=== PATIENT | female | born 1955 | race Caucasian/White ===

== ENCOUNTER 2020-05-18 12:20 | Outpatient (CLI) | payer OTHER, MEDICAID, SELFPAY ==
--- NOTE | ~2020-05-18 | XR_ITS ---
XR foot RT min 3V DATE: 05/18/2020 12:39 INDICATION: Stubbed second toe on wood object. Injury, pain TECHNIQUE: 4 views COMPARISON: 04/24/2017 right foot FINDINGS: Hallux valgus and bunion deformity. Osteoarthritis at the first metatarsophalangeal joint. Mild plantar calcaneal enthesopathy. Hammertoe deformity of the second toe. Osteoarthritis of the distal interphalangeal joint of the seco nd toe. Chronic bony ossicle at the lateral base of the second metatarsophalangeal joint No fracture or dislocation is evident. IMPRESSION: No fracture or dislocation is detected Reviewed, dictated and finalized at location A.
== END 2020-05-18 12:21 | disposition home or self-care (01) ==
LOC: ANHIMG 12:24
PROVIDERS: PCP Student in an Organized Health Care Education/Training Program; Visit Provider Student in an Organized Health Care Education/Training Program
DX: M79.671 Pain in right foot (principal)
CPT/HCPCS: 73630

== ENCOUNTER 2020-06-12 08:18 | Outpatient (CLI) | payer OTHER, MEDICAID, SELFPAY | END 2020-06-12 08:19 | disposition home or self-care (01) | LOC: ANHAUDIO 08:20 | PROVIDERS: PCP Student in an Organized Health Care Education/Training Program; Visit Provider Student in an Organized Health Care Education/Training Program | DX: H91.90 Unspecified hearing loss, unspecified ear (principal) | CPT/HCPCS: 92557; 92567 ==

== ENCOUNTER 2020-06-29 13:30 | Outpatient (RCR) | payer MEDICAID, SELFPAY | END 2020-06-29 23:59 | disposition home or self-care (01) | LOC: ANHAUDIO 13:30 | PROVIDERS: PCP Student in an Organized Health Care Education/Training Program; Visit Provider Student in an Organized Health Care Education/Training Program | DX: Z46.1 Encounter for fitting and adjustment of hearing aid (principal) | CPT/HCPCS: 92593; 99199; V5160; V5261 ==

== ENCOUNTER 2020-09-21 07:20 | Outpatient (CLI) | payer OTHER, MEDICAID, SELFPAY ==
--- NOTE | ~2020-09-21 | CT_ITS ---
EXAMINATION: CT abdomen pelvis w con INDICATION: Left lower quadrant pain TECHNIQUE: Computed tomographic images of the abdomen and pelvis were obtained after the administrati on of 100 cc of Omnipaque 350 intravenous contrast. The dose-length product (DLP) was 1353.46 mGy-cm. Automated exposure control and iterative reconstruction technique were employed. COMPARISON: 09/15/2016 FINDINGS: The lung bases are clear. The heart size is normal. The gallbladder is surgically absent. T here is mild enlargement of the common bile duct and central intrahepatic ducts which is likely due t o post cholecystectomy state. The liver, spleen, pancreas, and adrenal glands are normal. Cysts of th e kidneys measure up to 5.5 cm on the left. No pathologically enlarged abdominal or pelvic lymph node s are identified. The appendix is normal. There is diverticulitis of the sigmoid colon. There is a la rge volume of free intraperitoneal gas. No perisigmoid abscess is identified. A fat-containing umbili lelo hernia is noted. There is severe lumbar spondylosis. IMPRESSION: 1. Acute sigmoid diverticulitis. 2. Large volume of free intraperitoneal gas most consistent with perforated diverticulitis. Reviewed, dictated and finalized at location A. IMPRESSION: 1. Acute sigmoid diverticulitis. 2. Large volume of free intraperitoneal gas most consistent with perforated div erticulitis.
[2020-09-21 08:00] LABS: Estimated Glomerular Filt Rate > 60
[2020-09-21 09:17] LABS: Alanine Aminotransferase 15 U/L (4-35); Albumin Level 3.8 g/dL (3.5-5.1); Alkaline Phosphatase 143 U/L (38-126); Aspartate Amino Transferase 16 U/L (14-36); Bilirubin,Total 0.3 mg/dL (0.2-1.3)
== END 2020-09-21 07:21 | disposition home or self-care (01) ==
PROVIDERS: PCP Student in an Organized Health Care Education/Training Program; Visit Provider Nurse Practitioner Family
DX: R10.32 Left lower quadrant pain (principal); R19.7 Diarrhea, unspecified; K57.32 Diverticulitis of large intestine without perforation or abscess without bleeding
CPT/HCPCS: 74177; 80076; Q9967

== ENCOUNTER 2020-09-21 17:48 | Inpatient (IN) | payer OTHER, MEDICAID, SELFPAY ==
[2020-09-21] VITALS (28 sets, daily range): BP systolic 126–154; BP diastolic 63–96; PULSE 67–111; RESP 14–27; TEMP 35.8–36.5; O2SAT 95–100; BMI 35.6
--- NOTE | ~2020-09-21 | XR_ITS ---
EXAMINATION: XR enema water soluble DATE: 09/24/2020 10:03 INDICATION: Sigmoid diverticulitis, free intraperitoneal gas TECHNIQUE: A community pharmacist radiograph was obtained. A catheter was inserted into the patient's rectum. Contra st was infused by gravity. Fluoroscopic spot images and conventional radiographs were obtained. Fluor oscopy exposure time was 2.8 minutes. The DAP for this procedure was 98.205 Gycm2. 20 images were obt ained. COMPARISON: CT, 09/21/2020 FINDINGS: Branch Officer image and subsequent conventional radiographs demonstrate persistent free intraperito alma gas. There are multiple colonic diverticula. There is a fixed stricture of the sigmoid colon leslie suring approximately 3 cm in length. No definite source of perforation is identified. IMPRESSION: 1. Short segment stricture of the sigmoid colon which could be due to diverticulitis or malignancy. 2. No definite source of free intraperitoneal gas identified. 3. Multiple colonic diverticula. 4. Persistent free intraperitoneal gas. Reviewed, dictated and finalized at location A. IMPRESSION: 1. Short segment stricture of the sigmoid colon which could be due to diverticu litis or malignancy. 2. No definite source of free intraperitoneal gas identified. 3. Multiple colonic diverticula. 4. Persistent free intraperitoneal gas.
[2020-09-21 18:15] LABS: Basophils Absolute Auto 0.1 K/mm3 (0.0-0.1); Basophils Percent Auto 0.7 % (0.2-1.2); Eosinophils Absolute Auto 0.3 K/mm3 (0-0.3); Eosinophils Percent Auto 4.4 % (0-4.4); Hematocrit 41.7 % (37.0-47.0); Hemoglobin 13.6 g/dL (12.0-15.0); Immature Granulocyte Absolute 0.01 K/mm3 (0.00-0.031); Immature Granulocyte Percent A 0.1 % (0-0.5); Lymphocytes Absolute Auto 2.88 K/mm3 (0.9-3.2); Lymphocytes Percent Auto 39.6 % (18.3-44.2); Mean Corpuscular HGB Conc 32.6 g/dl (32-36); Mean Corpuscular Hemoglobin 27.8 pg (26-34); Mean Corpuscular Volume 85.3 fl (80-100); Mean Platelet Volume 9.7 fl (7.4-10.4); Monocytes Absolute Auto 0.7 K/mm3 (0.1-0.6); Monocytes Percent Auto 9.5 % (2.6-8.5); Neutrophils Absolute Auto 3.3 K/mm3 (1.3-6.7); Neutrophils Percent Auto 45.7 % (45.5-73.1); Platelet Count Result 270 k/mm3 (150-375); Red Blood Count 4.89 M/mm3 (4.2-5.4); White Blood Count 7.3 K/mm3 (4.5-10.0)
[2020-09-21 18:23] LABS: INR 0.8; Lactic Acid Reflex 1.2 mmol/L (0.7-2.1); Prothrombin Time 11.4 Seconds (11.1-14.7)
[2020-09-21 18:24] LABS: Anion Gap 9 mmol/L (8-16); Blood Urea Nitrogen 18 mg/dL (7-17); Calcium 9.6 mg/dL (8.4-10.2); Carbon Dioxide 26 mmol/L (22-30); Chloride 105 mmol/L (98-107); Estimated CRCL calculation 104 ml/min; Estimated Glomerular Filt Rate > 60; Glucose 91 mg/dL (65-110); Partial Thromboplastin Time 24.7 SECONDS (22.3-36.8); Sodium 140 mmol/L (137-145)
--- NOTE | 2020-09-21 19:47 | ECG_ITS ---
Measurements Intervals [place] Rate: 67 P: 62 ME: 176 QRS: -11 QRSD: 89 T: 44 QT: 395 QTc: 417 Interpretive Statements SINUS RHYTHM EARLY PRECORDIAL R/S TRANSITION BASELINE ARTIFACT- II, III, AVF, V2-V6 BORDERLINE ECG Electronically Signed On 09-22-2020 7:32:54 CDT by Rakesh Clayton D.O.
--- NOTE | 2020-09-21 19:52 | ED.GENADULT ---
HPI - General Adult General Chief complaint: Unspecified Stated complaint: sent by PCP, pt unknown why she is here Time Seen by Provider: 09/21/20 17:49 History of Present Illness HPI narrative: Patient is a 65-year-old female who presents ER with abdominal bloating. She reports she was referred here by her GI physician who had ordered an outpatient CT scan yesterday. Dr. Cramer did call here. Apparently her CT scan shows acute diverticulitis as well as a large amount of free air within the abdomen. Certainly concerning for perforated viscus. Patient reports she has been having diarrhea and bloated abdomen for the last year since Covid started. She reports multiple stools a day. No recent change in her stool output over the last 2 to 3 days. No recent increase in pain. Denies fevers or chills or sweats. No relief with Bentyl or simethicone. Related Data Home Medications Medication Instructions Recorded Confirmed acetaminophen [Tylenol 8 Hour] 650 mg PO Q8H PRN 09/21/20 09/21/20 albuterol 90 mcg INHALATION QID PRN 09/21/20 09/21/20 aripiprazole [Abilify] 2.5 mg PO DAILY 09/21/20 09/21/20 diazepam 2 mg PO HS 09/21/20 09/21/20 diphenhydramine HCl [Benadryl 25 mg PO HS PRN 09/21/20 09/21/20 Allergy] divalproex 250 mg PO BID 09/21/20 09/21/20 fluoxetine [Prozac] 40 mg PO DAILY 09/21/20 09/21/20 fluticasone propion-salmeterol 2 puff INHALATION BID 09/21/20 09/21/20 [Advair HFA] lisdexamfetamine [Vyvanse] 50 mg PO DAILY 09/21/20 09/21/20 lorazepam [Ativan] 1 mg PO HS 09/21/20 09/21/20 omeprazole 20 mg PO DAILY 09/21/20 09/21/20 zolpidem 12.5 mg PO QPM 09/21/20 09/21/20 Allergies Allergy/AdvReac Type Severity Reaction Status Date / Time METALS CARMEN Allergy Mild Rash Uncoded 09/21/20 22:08 NONSTEROIDAL Allergy Unknown Other Uncoded 09/21/20 22:08 Review of Systems Review of Systems: All systems reviewed & are unremarkable except as noted in HPI and below Constitutional: Constitutional: Denies chills, Denies fatigue and Denies fever(s) Gastrointestinal: Gastrointestinal: Denies abdominal pain, Denies belching, Reports bloating, Reports diarrhea and Denies vomiting Genitourinary: Genitourinary: Denies nocturia, Denies dysuria and Denies flank pain PMFSH Past Medical History Medical History (Updated 09/21/20 @ 23:48 by Edd Crisostomo MD) Bipolar disorder Diverticulitis GERD (gastroesophageal reflux disease) Surgical History Surgical History (Updated 09/21/20 @ 23:49 by Edd Crisostomo MD) History of cholecystectomy History of hysterectomy Family History Family History Father Skin cancer Colon cancer Myocardial infarct Sibling COPD (chronic obstructive pulmonary disease) Mother COPD (chronic obstructive pulmonary disease) Social History Social History (System 03/28/19 @ 14:39 by Rhoda Paulino) Smoking status: Never smoker Second hand tobacco smoke exposure: No Alcohol intake: never Substance use: never Gender identity (if verbalized by the patient): Female Spiritual care concerns: No Exam Narrative: GENERAL: Well-appearing, well-nourished, and in no acute distress. HEAD: Normocephalic, atraumatic. EYES: PERRL and EOMI. ENT: Mucous membranes moist. CHEST: Clear to auscultation. No respiratory distress. HEART: Regular rate and rhythm. Normal peripheral pulses. ABDOMEN: Soft, mild left mid lower quadrant tenderness without guarding, nondistended. EXTREMITIES: Normal range of motion. No edema. SKIN: Warm, dry, no rash. NEURO: Alert and oriented x3. PSYCH: Normal mood and affect. Course Course Emergency Course: Discussed case with general surgery. Admit to his service with IV Zosyn. Keep n.p.o. Vital Signs Vital signs: Vital Signs Temperature 97.7 F 09/21/20 18:09 Pulse Rate 80 09/21/20 18:09 Respiratory Rate 16 09/21/20 18:09 Blood Pressure 142/86 H 09/21/20 18:09 Pulse Oximetr
--- NOTE | 2020-09-21 21:33 | PC.NURSE ---
awaiting bed in room 348 to be cleaned. report given to SEBASTIÁN Rubalcava.
--- NOTE | 2020-09-21 22:02 | ADMGEN ---
This patient, Melissa Martinez, was admitted to Medical Room 348-01. Patient/family oriented to hospital policies and general routines including ID bracelet, bed and alarms, visiting hours, pain management, procedures, bathroom and other care routines, personal items, smoking policy, room service/diet, and visiting hours. Information on how to activate the Rapid Response Team has been discussed. Patient/Family are encouraged to report perceived risks to care and to ask questions if they do not understand what they are told or what they should do.
[2020-09-22 05:20] LABS: Basophils Percent Auto 0.6 % (0.2-1.2); Eosinophils Absolute Auto 0.3 K/mm3 (0-0.3); Eosinophils Percent Auto 3.7 % (0-4.4); Hematocrit 36.9 % (37.0-47.0); Immature Granulocyte Absolute 0.03 K/mm3 (0.00-0.031); Immature Granulocyte Percent A 0.4 % (0-0.5); Lymphocytes Absolute Auto 2.72 K/mm3 (0.9-3.2); Lymphocytes Percent Auto 40.3 % (18.3-44.2); Mean Corpuscular HGB Conc 32.5 g/dl (32-36); Mean Corpuscular Hemoglobin 27.6 pg (26-34); Mean Corpuscular Volume 84.8 fl (80-100); Mean Platelet Volume 9.7 fl (7.4-10.4); Monocytes Absolute Auto 0.7 K/mm3 (0.1-0.6); Monocytes Percent Auto 10.2 % (2.6-8.5); Neutrophils Percent Auto 44.8 % (45.5-73.1); Platelet Count Result 243 k/mm3 (150-375); Red Blood Count 4.35 M/mm3 (4.2-5.4); White Blood Count 6.8 K/mm3 (4.5-10.0)
[2020-09-22 05:35] LABS: Anion Gap 8 mmol/L (8-16); Blood Urea Nitrogen 23 mg/dL (7-17); Calcium 9.2 mg/dL (8.4-10.2); Carbon Dioxide 29 mmol/L (22-30); Chloride 103 mmol/L (98-107); Estimated CRCL calculation 105 ml/min; Estimated Glomerular Filt Rate > 60; Glucose 120 mg/dL (65-110); Magnesium 1.9 mg/dL (1.6-2.3); Potassium 4.1 mmol/L (3.4-5.0); Sodium 140 mmol/L (137-145)
[2020-09-22 05:49] VITALS: BP 106/66; PULSE 79; RESP 18; TEMP 37; O2SAT 97
--- NOTE | 2020-09-22 07:22 | PM.IMHP ---
H&P: HPI History of Present Illness Date/Time: 09/22/20 07:22 Chief Complaint: Mild lower abdominal pain. Narrative: Patient is a 65-year-old White female who presented last night to the [place] ER with abdominal bloating. She reports she was referred here by her GI physician who had ordered an outpatient CT scan yesterday. Dr. Cramer did call here. Apparently her CT scan shows acute diverticulitis as well as a large amount of free air within the abdomen. (See report) This is certainly concerning for perforated viscus. Patient reports she has been having diarrhea and bloated abdomen for the last year since Covid started. She reports multiple stools a day. No recent change in her stool output over the last 2 to 3 days. No recent increase in pain. Denies fevers or chills or sweats. No relief with Bentyl or simethicone. Furter Workup in the emergency room was fairly unremarkable with fairly normal labs including a normal white blood cell count. CT scan was reviewed with the ER physician and we decided to place the patient on antibiotics and admit her for observation. She is not in a lot of pain at this time. We kept her NPO overnight until I got to see her. The patient confirms above note from the ED that beginning in late 2019 and continuing she has had as many as 5 loose stools per day. Interestingly yesterday she only had two. She states in the past she did have some stool studies done which were negative. She has had none since being admitted to the hospital. Because of this she had a EGD and colonoscopy by Dr. Craemr about a month ago. She relates the findings as in the colon multiple biopsies not revealing any cancer. But also noted of a significant diverticular problem with possible stricture in 1 area such that used a pediatric colonoscope. EGD also was done apparently with no specific abnormalities noted. The patient also states biopsies were done there without specific changes but she was placed on [id number] Prilosec once a day after that EGD. Review of Systems Constitutional: Constitutional: Reports no additional constitutional complaints ENT: Reports other (Mucous Membranes moist.) Cardiovascular: Cardiovascular: Denies dyspnea Respiratory: Respiratory: Denies pain on inspiration and Denies dyspnea Gastrointestinal: Gastrointestinal: Reports bloating Musculoskeletal: Musculoskeletal: Reports other (No calf swelling or edema) Integumentary/Breasts: Skin/Breast: Reports system reviewed and no additional complaints, except as docu Psychiatric: Psychiatric: Reports abnormal sleep pattern, Reports anxiety and Reports depression [facility] Past Medical History Medical History (Updated 09/22/20 @ 07:31 by Mayur Mcclure MD) Bipolar 1 disorder, depressed Bipolar disorder Chronic GERD Diverticulitis GERD (gastroesophageal reflux disease) Surgical History Surgical History (Updated 09/22/20 @ 08:53 by Mayur Mcclure MD) History of cholecystectomy History of hysterectomy Family History Family History Father Skin cancer Colon cancer Myocardial infarct Sibling COPD (chronic obstructive pulmonary disease) Mother COPD (chronic obstructive pulmonary disease) Social History Social History Smoking status: Never smoker Second hand tobacco smoke exposure: No Alcohol intake: never Substance use: never Gender identity (if verbalized by the patient): Female Spiritual care concerns: No Meds Home Medications and Allergies Home Medications Medication Instructions Recorded Confirmed Type acetaminophen [Tylenol 8 Hour] 650 mg PO Q8H PRN 09/21/20 09/21/20 History albuterol 90 mcg INHALATION QID PRN 09/21/20 09/21/20 History aripiprazole [Abilify] 2.5 mg PO DAILY 09/21/20 09/21/20 History diazepam 2 mg PO HS 09/21/20 09/21/20 History diphenhydramine HCl [Benadryl 2
[2020-09-22] MEDS: FLUTICASONE/SALMETEROL 230-21 MCG INHALER 1 PUFF 2 PUFF INHALATION ×2 (07:53→20:06)
[2020-09-22 07:56] VITALS: O2SAT 95
[2020-09-22] MEDS: ARIPiprazole 2.5 MG TABLET PO (08:51)
[2020-09-22] MEDS: FLUoxetine HCL 20 MG CAPSULE 40 MG PO (08:51)
[2020-09-22] MEDS: DIVALPROEX SODIUM DR 250 MG TABEC PO ×2 (08:51→17:59)
[2020-09-22] MEDS: PANTOPRAZOLE 40 MG TABLET PO (08:52)
[2020-09-22] MEDS: ENOXAPARIN 40 MG/0.4 ML SYRINGE SUB-Q (08:54)
[2020-09-22] MEDS: polyethylene glycoL 3350 17 GM POWD.PACK PO (09:40)
[2020-09-22] MEDS: metroNIDAZOLE 250 MG TABLET 500 MG PO ×2 (13:00→21:33)
[2020-09-22 14:00] VITALS: BP 114/62; PULSE 64; RESP 18; TEMP 36.7; O2SAT 96
[2020-09-22 19:47] VITALS: BP 153/68; PULSE 68; RESP 18; TEMP 35.9; O2SAT 97
[2020-09-22 20:07] VITALS: O2SAT 95
[2020-09-22] MEDS: ZOLPIDEM TARTRATE (*CRX) 5 MG TABLET 10 MG PO (21:32)
[2020-09-22] MEDS: diazePAM (*CRX) 2 MG TABLET PO (21:32)
[2020-09-23 05:40] LABS: Basophils Absolute Auto 0.1 K/mm3 (0.0-0.1); Basophils Percent Auto 0.9 % (0.2-1.2); Eosinophils Absolute Auto 0.3 K/mm3 (0-0.3); Eosinophils Percent Auto 4.4 % (0-4.4); Hematocrit 38.7 % (37.0-47.0); Hemoglobin 12.4 g/dL (12.0-15.0); Immature Granulocyte Absolute 0.01 K/mm3 (0.00-0.031); Immature Granulocyte Percent A 0.2 % (0-0.5); Lymphocytes Absolute Auto 2.04 K/mm3 (0.9-3.2); Lymphocytes Percent Auto 36.1 % (18.3-44.2); Mean Corpuscular Hemoglobin 27.6 pg (26-34); Mean Corpuscular Volume 86.2 fl (80-100); Mean Platelet Volume 9.6 fl (7.4-10.4); Monocytes Absolute Auto 0.5 K/mm3 (0.1-0.6); Monocytes Percent Auto 9.6 % (2.6-8.5); Neutrophils Absolute Auto 2.8 K/mm3 (1.3-6.7); Neutrophils Percent Auto 48.8 % (45.5-73.1); Platelet Count Result 234 k/mm3 (150-375); Red Blood Count 4.49 M/mm3 (4.2-5.4); White Blood Count 5.7 K/mm3 (4.5-10.0)
[2020-09-23 05:49] VITALS: BP 125/60; PULSE 74; RESP 18; TEMP 35.9; O2SAT 98
[2020-09-23 05:51] LABS: Alanine Aminotransferase 17 U/L (4-35); Albumin Level 3.5 g/dL (3.5-5.1); Alkaline Phosphatase 111 U/L (38-126); Anion Gap 8 mmol/L (8-16); Aspartate Amino Transferase 16 U/L (14-36); Bilirubin,Total 0.4 mg/dL (0.2-1.3); Blood Urea Nitrogen 10 mg/dL (7-17); Calcium 9.2 mg/dL (8.4-10.2); Carbon Dioxide 26 mmol/L (22-30); Chloride 106 mmol/L (98-107); Estimated CRCL calculation 123 ml/min; Estimated Glomerular Filt Rate > 60; Glucose 110 mg/dL (65-110); Potassium 3.7 mmol/L (3.4-5.0); Sodium 140 mmol/L (137-145)
[2020-09-23] MEDS: metroNIDAZOLE 250 MG TABLET 500 MG PO ×3 (05:54→21:01)
[2020-09-23] MEDS: PANTOPRAZOLE 40 MG TABLET PO (09:44)
[2020-09-23] MEDS: ARIPiprazole 2.5 MG TABLET PO (09:44)
[2020-09-23] MEDS: FLUoxetine HCL 20 MG CAPSULE 40 MG PO (09:44)
[2020-09-23] MEDS: DIVALPROEX SODIUM DR 250 MG TABEC PO ×2 (09:44→18:20)
[2020-09-23] MEDS: ENOXAPARIN 40 MG/0.4 ML SYRINGE SUB-Q (09:44)
[2020-09-23 13:26] VITALS: BP 124/70; PULSE 74; RESP 20; TEMP 36.9; O2SAT 99
[2020-09-23] MEDS: FLUTICASONE/SALMETEROL 230-21 MCG INHALER 1 PUFF 2 PUFF INHALATION (19:29)
[2020-09-23 19:38] VITALS: PULSE 75; RESP 18
[2020-09-23 19:41] VITALS: PULSE 75; RESP 18
[2020-09-23] MEDS: ZOLPIDEM TARTRATE (*CRX) 5 MG TABLET 10 MG PO (21:01)
[2020-09-23] MEDS: diazePAM (*CRX) 2 MG TABLET PO (21:01)
[2020-09-23 21:06] VITALS: BP 165/96; PULSE 72; RESP 18; TEMP 36.1; O2SAT 98
--- NOTE | 2020-09-23 21:51 | PM.PNGS ---
Progress Note: A&P Assessment and Plan (1) Perforated abdominal viscus: Code(s): R19.8 - Other specified symptoms and signs involving the digestive system and abdomen Status: Acute Assessment and Plan: The very unusual situation which the patient has a large amount of free air but totally asymptomatic. Possibilities include leakage from a small duodenal ulcer versus a small perforated diverticulum that isn't allowing stool to leak. Patient has not been on any antibiotics over the last month therefore suppression by antibiotic therapy does not seem to be a possibility. Patient continues to do well and is fairly pain free. She started tolerating clear liquids without trouble still having a occasional loose stools. (2) Chronic GERD: Onset Date: Unknown Code(s): K21.9 - Gastro-esophageal reflux disease without esophagitis Status: Acute Assessment and Plan: The patient actually had an EGD a month ago. Findings are unknown but she states that biopsies were taken and no report of any large ulcers or other problems in the upper GI tract. Dr. Fisher did this. (3) Bipolar 1 disorder, depressed: Onset Date: Unknown Code(s): F31.9 - Bipolar disorder, unspecified Status: Acute Assessment and Plan: Patient stable on her current regimen of medications. These have been renewed for hospitalization time period. (4) Diverticulitis: Code(s): K57.92 - Diverticulitis of intestine, part unspecified, without perforation or abscess without bleeding Status: Acute Assessment and Plan: This appears to be the main reason for the patient's lower abdominal pain and admission. She is now on IV Zosyn. I will start oral metronidazole today since she has been having lots of diarrhea I want to begin clean out the bacteria in the colon case she needs surgery. Right now she is not significantly tender. Should her white count is normal so we are planning to continue antibiotics for now. I will reviewed the CT scan With from her in radiology and this was scattered across the upper abdomen and mid abdomen so not amenable to any kind of drainage. After discussion with Dr. Cramer may also consider prior to discharge a Gastrografin contrast enema to see if there is any sign of a stricture in the colon and any leakage. This has been scheduled for tomorrow morning Thursday09/24/2020 (5) H/O colonoscopy: Code(s): Z98.890 - Other specified postprocedural states Status: Acute Assessment and Plan: Last done apparently July 2020. Findings of diverticular disease with a possible stricture requiring a pediatric colonoscope be used. Patient has had continuing diarrhea even after this. Apparently no obvious findings to explain the diarrhea. One thought would be is there this a side effect of 1 of her depression meds. Additional Plan possibly home tomorrow on Levaquin and Flagyl for another 8 days if Gastrografin enema does not show anything of concern Subjective Subjective Date/Time Seen: 09/23/20 15:51 patient is feeling well area. Tolerating her diet okay. There continuing are clear liquids until after her Gastrografin enema study tomorrow. She is willing to proceed. If there is no sign of leak will probably plan to send her home on Levaquin and Flagyl for 8 days and follow her up in the office. Review of Systems Constitutional: Constitutional: Reports no additional constitutional complaints ENT: Reports other (Mucous Membranes moist.) Cardiovascular: Cardiovascular: Denies dyspnea Respiratory: Respiratory: Denies pain on inspiration and Denies dyspnea Musculoskeletal: Musculoskeletal: Reports other (No calf swelling or edema) Integumentary/Breasts: Skin/Breast: Reports system reviewed and no additional complaints, except as docu Exam Const: General: cooperative, no acute distress, alert and awake Orientation/consciousness: patient
[2020-09-23] MEDS: diphenhydrAMINE HCl CAP 25 MG CAPSULE PO (22:45)
[2020-09-24 05:01] VITALS: BP 121/60; PULSE 75; RESP 17; TEMP 36.1; O2SAT 99
[2020-09-24] MEDS: metroNIDAZOLE 250 MG TABLET 500 MG PO ×2 (05:08→13:59)
[2020-09-24 06:38] LABS: Mean Platelet Volume 9.6 fl (7.4-10.4); Platelet Count Result 275 k/mm3 (150-375)
[2020-09-24] MEDS: FLUTICASONE/SALMETEROL 230-21 MCG INHALER 1 PUFF 2 PUFF INHALATION (10:09)
[2020-09-24] MEDS: FLUoxetine HCL 20 MG CAPSULE 40 MG PO (10:18)
[2020-09-24] MEDS: PANTOPRAZOLE 40 MG TABLET PO (10:18)
[2020-09-24] MEDS: ARIPiprazole 2.5 MG TABLET PO (10:18)
[2020-09-24] MEDS: DIVALPROEX SODIUM DR 250 MG TABEC PO ×2 (10:18→18:10)
[2020-09-24 14:00] VITALS: BP 127/61; PULSE 75; RESP 18; TEMP 35.9; O2SAT 97
--- NOTE | 2020-09-24 19:46 | PM.DS ---
DS: Admitting Diagnosis Admitting Diagnosis Diverticulitis with free air. DS: Discharge Diagnosis Discharge Diagnosis (1) Stricture of sigmoid colon: Code(s): K56.699 - Other intestinal obstruction unspecified as to partial versus complete obstruction Status: Acute Assessment and Plan: Gastrografin enema the day of discharge revealed a stricture in the mid sigmoid. No dilation of the colon proximal to this. So as well the patient should be able do a right on a low-fiber diet. This probably correlates with the fact that she states the doctor ashli king had to use a pediatric colonoscope in order to do her colonoscopy. (2) H/O colonoscopy: Onset Date: ~08/2020 Code(s): Z98.890 - Other specified postprocedural states Status: Acute Assessment and Plan: Recent colonoscopy showing loss of diverticuli by Dr. Cramer (3) Chronic GERD: Onset Date: Unknown Code(s): K21.9 - Gastro-esophageal reflux disease without esophagitis Status: Acute Assessment and Plan: on daily Prilosec for this (4) Bipolar 1 disorder, depressed: Onset Date: Unknown Code(s): F31.9 - Bipolar disorder, unspecified Status: Acute Assessment and Plan: On multiple meds in sees psychiatrist regarding this. Currently seems stable (5) Diverticulitis: Code(s): K57.92 - Diverticulitis of intestine, part unspecified, without perforation or abscess without bleeding Status: Acute Assessment and Plan: seems to be limited to the sigmoid but she has diverticuli throughout most of her left colon by the Gastrografin enema. 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 I discussed this with her will discuss it more when she sees me in the office in about 1 week. (6) Perforated abdominal viscus: Code(s): R19.8 - Other specified symptoms and signs involving the digestive system and abdomen Status: Acute Assessment and Plan: Patient a good amount of free air on her CT scan done when she came to the emergency room. This is very unusual as she did have many symptoms. Actually she had a CT prior to coming to the ER and was directed to come the ER because of it she was having minimal symptoms we treated her with antibiotics and she did not have any signs of instability or problems while in the hospital. Gastrografin enema showed no leak. DS: Summary Hospital Course Reason for hospitalization: Free air seen on recent outpatient CT scan of the abdomen and pelvis Hospital Course: patient a fairly uneventful hospital course. Remarkably she did not have much symptoms in the way of peritoneal signs on initial admission with them free air that was present we observed her carefully put her on IV antibiotics her white count was normal throughout the stay in the hospital and did not change that much. She came in on the weekends we waited until Thursday did a Gastrografin enema this showed a stricture in the sigmoid colon but there was no proximal dilation to suggest blockage. Therefore, I am letting her go home and will complete a 10 day course of antibiotics she has had 3 days of IV antibiotics with Pipracil in / Zosyn in the hospital we will continue this with Aleah and Toya as an outpatient. She will follow up with both Dr. ashli king and Liz solis I did discuss with her possible elective left hemicolectomy with splenic flexure takedown in view of then very significant diverticulosis that she has on her left colon and in view of the stricture. Since she has had a complication of a developing free air is probably enough between the 2 to recommend elective surgery for her in the near future. I encouraged her to try to lose weight over the next month or try to make this les
== END 2020-09-24 20:15 | disposition home or self-care (01) | DRG 392 ==
LOC: ANHED 19:55 → ANH3MED 20:55
PROVIDERS: Admitting Provider Surgery; Emergency Provider Emergency Medicine; PCP Student in an Organized Health Care Education/Training Program; Visit Provider Surgery
DX: K57.20 Diverticulitis of large intestine with perforation and abscess without bleeding (principal); R19.8 Other specified symptoms and signs involving the digestive system and abdomen; K21.9 Gastro-esophageal reflux disease without esophagitis; F31.9 Bipolar disorder, unspecified; Z90.49 Acquired absence of other specified parts of digestive tract; Z90.710 Acquired absence of both cervix and uterus
CPT/HCPCS: 36415; 74177; 74270; 80048; 80053; 80076; 83605; 83735; 85025; 85049; 85610; 85730; 93005; 94640; 96365; 96366; 96372; 99285; A9270; G0378; J1650; J2543; Q9967

== ENCOUNTER 2020-10-15 10:32 | Outpatient (RCR) | payer MEDICAID, SELFPAY | END 2020-10-15 23:59 | disposition home or self-care (01) | LOC: ANHAUDIO 10:32 | PROVIDERS: PCP Student in an Organized Health Care Education/Training Program; Visit Provider Student in an Organized Health Care Education/Training Program | DX: Z46.1 Encounter for fitting and adjustment of hearing aid (principal) | CPT/HCPCS: 99199 ==

== ENCOUNTER 2020-10-15 10:54 | Outpatient (CLI) | payer OTHER, MEDICAID, SELFPAY ==
[2020-10-15 13:24] LABS: Basophils Absolute Auto 0.1 K/mm3 (0.0-0.1); Basophils Percent Auto 0.8 % (0.2-1.2); Eosinophils Absolute Auto 0.3 K/mm3 (0-0.3); Eosinophils Percent Auto 4.5 % (0-4.4); Hematocrit 43.7 % (37.0-47.0); Hemoglobin 14.3 g/dL (12.0-15.0); Immature Granulocyte Absolute 0.02 K/mm3 (0.00-0.031); Immature Granulocyte Percent A 0.3 % (0-0.5); Lymphocytes Percent Auto 33.8 % (18.3-44.2); Mean Corpuscular HGB Conc 32.7 g/dl (32-36); Mean Corpuscular Hemoglobin 27.8 pg (26-34); Mean Corpuscular Volume 84.9 fl (80-100); Mean Platelet Volume 9.7 fl (7.4-10.4); Monocytes Absolute Auto 0.6 K/mm3 (0.1-0.6); Monocytes Percent Auto 7.8 % (2.6-8.5); Neutrophils Absolute Auto 3.9 K/mm3 (1.3-6.7); Neutrophils Percent Auto 52.8 % (45.5-73.1); Platelet Count Result 301 k/mm3 (150-375); Red Blood Count 5.15 M/mm3 (4.2-5.4); Red Cell Distribution Width 13.5 % (11.5-14.5); White Blood Count 7.4 K/mm3 (4.5-10.0)
--- NOTE | 2020-10-15 13:26 | PCWOUND ---
WOCN NOTE Both sides of abdomen marked with black X for optimal stoma placement if needed. Covered the X with a tegaderm. Patient instructed to keep dressings dry and intact until her surgery. Patient verbalized understanding of care.
[2020-10-15 13:40] LABS: Alanine Aminotransferase 16 U/L (4-35); Albumin Level 4.3 g/dL (3.5-5.1); Alkaline Phosphatase 134 U/L (38-126); Anion Gap 6 mmol/L (8-16); Aspartate Amino Transferase 21 U/L (14-36); Bilirubin,Total 0.5 mg/dL (0.2-1.3); Blood Urea Nitrogen 19 mg/dL (7-17); Calcium 9.5 mg/dL (8.4-10.2); Carbon Dioxide 30 mmol/L (22-30); Chloride 103 mmol/L (98-107); Estimated Glomerular Filt Rate > 60; Glucose 112 mg/dL (65-110); Sodium 139 mmol/L (137-145)
== END 2020-10-15 10:55 | disposition home or self-care (01) ==
LOC: ANHSURGERY 10:56
PROVIDERS: PCP Student in an Organized Health Care Education/Training Program; Visit Provider Surgery
DX: K57.92 Diverticulitis of intestine, part unspecified, without perforation or abscess without bleeding (principal); K56.699 Other intestinal obstruction unspecified as to partial versus complete obstruction
CPT/HCPCS: 36415; 80053; 85025; 86850; 86900; 86901

== ENCOUNTER 2020-11-22 09:38 | Outpatient (CLI) | payer OTHER, MEDICAID, SELFPAY ==
--- NOTE | 2020-11-22 10:54 | PCWOUND ---
WOCN NOTE received orders to basia both sides of patients abdomen for possible ostomy placement for upcoming surgery on 12/03/20. Applied a black X with sharpie to the most optimal site on both sides of abdomen. Will follow patient as needed after surgery.
== END 2020-11-22 09:39 | disposition home or self-care (01) ==
LOC: ANHSURGERY 09:45
PROVIDERS: PCP Student in an Organized Health Care Education/Training Program; Visit Provider Surgery
DX: Z01.818 Encounter for other preprocedural examination (principal); K56.699 Other intestinal obstruction unspecified as to partial versus complete obstruction
CPT/HCPCS: 36415; 86850; 86900; 86901

== ENCOUNTER 2020-12-03 16:18 | Inpatient (IN) | payer OTHER, MEDICAID, SELFPAY ==
[2020-10-15 12:22] VITALS: BMI 34.7
[2020-10-15 12:49] VITALS: BP 139/63; PULSE 88; RESP 16; TEMP 37.2; O2SAT 98
[2020-11-22 09:57] VITALS: BMI 36.1
[2020-11-22 10:55] VITALS: BP 104/74; PULSE 84; RESP 16; TEMP 36.9; O2SAT 97
--- NOTE | 2020-11-22 10:56 | PC.NURSE ---
PT STATES NO CHANGE IN HEALTH HX SINCE LAST INTERVIEW DONE 10/15/20
[2020-12-03] VITALS (14 sets, daily range): BP systolic 106–157; BP diastolic 52–78; PULSE 73–92; RESP 14–20; TEMP 36.3–37.4; O2SAT 92–99; BMI 37.3
[2020-12-03] MEDS: ALVIMOPAN 12 MG CAPSULE PO (06:45)
[2020-12-03] MEDS: ACETAMINOPHEN 500 MG TABLET 1000 MG PO (06:45)
--- NOTE | 2020-12-03 06:57 | WPDANESEPPF ---
Anes - Initial Pre Proc Eval Procedure: Operation Date: 12/03/20 07:30 Proposed Procedures p Hand Assisted Laparoscopic Left Hemicolectomy with Splenic Flexure Takedown, Possible Diverting Loop Ileostomy - Mayur Mcclure MD Date/Time: 12/03/20 06:57 Surgeon: Mayur Mcclure MD Pre Op Diagnosis: sigmoid colon stricture, diverticulosis Patient Data Age: 65 Gender: F Height: 1.74 m Weight: 109.4 kg Last Vital Signs Temp 36.9 C 11/22/20 10:55 Pulse 84 11/22/20 10:55 Resp 16 11/22/20 10:55 BP 104/74 11/22/20 10:55 Pulse Ox 97 11/22/20 10:55 Allergies Allergy/AdvReac Type Severity Reaction Status Date / Time ciprofloxacin [From Cipro] Allergy Difficulty Verified 12/03/20 06:29 Breathing metronidazole [From Flagyl] Allergy Difficulty Verified 12/03/20 06:29 Breathing METALS CARMEN Allergy Mild Rash Uncoded 12/03/20 06:29 Home Medications Medication Instructions Recorded Confirmed Type Advair HFA 2 puff INHALATION BID 09/21/20 12/03/20 History Vyvanse 50 mg PO DAILY 09/21/20 12/03/20 History albuterol 90 mcg INHALATION BID PRN 09/21/20 12/03/20 History aripiprazole [Abilify] 2.5 mg PO HS 09/21/20 12/03/20 History diazepam 2 mg PO HS 09/21/20 12/03/20 History diphenhydramine HCl [Benadryl 25 mg PO HS PRN 09/21/20 12/03/20 History Allergy] divalproex 250 mg PO BID 09/21/20 12/03/20 History fluoxetine [Prozac] 40 mg PO DAILY 09/21/20 12/03/20 History omeprazole 20 mg PO DAILY 09/21/20 12/03/20 History zolpidem 12.5 mg PO QPM 09/21/20 12/03/20 History dicyclomine 10 mg PO QID 10/15/20 12/03/20 History montelukast 10 mg PO HS 11/22/20 12/03/20 History naproxen sodium [Aleve] 220 mg PO PRN PRN 11/22/20 12/03/20 History Patient hx anesthesia problems: none Family hx anesthesia problems: none Results Review: All pre-operative results and documents have been reviewed as part of the pre-operative evaluation. [facility] Past Medical History Medical History Bipolar 1 disorder, depressed (Unknown) Bipolar disorder Chronic GERD (Unknown) Diverticulitis GERD (gastroesophageal reflux disease) Surgical History Surgical History History of cholecystectomy History of hysterectomy Family History Family History Father Skin cancer Colon cancer Myocardial infarct Sibling COPD (chronic obstructive pulmonary disease) Mother COPD (chronic obstructive pulmonary disease) Social History Social History Smoking status: Never smoker Second hand tobacco smoke exposure: No Alcohol intake: never Substance use: never Living arrangements: alone Gender identity (if verbalized by the patient): Female Spiritual care concerns: No Anes - Eval Final PreProcedure Day of Procedure 12/03/20 06:57 Patient weight: obese Heart: regular rate and rhythm Lungs: decreased breath sounds Airway: Mallampati scale class II Neurological: alert and oriented Last oral intake: >/= 8 hours ASA classification: III Emergent: no Anesthetic plan: proceed Anesthesia type and monitoring: general ETT and standard monitoring Results Review: All pre-operative results and documents have been reviewed as part of the pre-operative evaluation. Informed Consent: The patient's anesthetic plan and its attendant risks and benefits were discussed with the patient/family/POA. Questions were solicited and answers provided to the satisfaction of the patient/family/POA.
[2020-12-03] MEDS: LACTATED RINGERS 1,000 ML 30 ML IV CONT ×2 (07:00→16:29)
[2020-12-03] MEDS: KETOROLAC 15 MG/ML VIAL (*BKC) IV PUSH (07:05)
--- NOTE | 2020-12-03 07:17 | WPDHPUPDATE1 ---
History and Physical Update Update Date/Time: 12/03/20 07:17 History and Physical has been reviewed, including an updated exam of the patient. There are NO changes in the patient's condition. Risks, benefits, and alternatives have been discussed and questions answered. Patient agrees to proceed with procedure.
[2020-12-03] MEDS: ceFAZolin 2 GM/D5W 50 ML 2 GM/50 ML BAG IVPB (07:30)
[2020-12-03] MEDS: CLINDAMYCIN 900 MG/D5W 50 ML 900 MG/50 ML PIGGYBACK 50 MG IVPB ×3 (08:14→20:13)
[2020-12-03] MEDS: LIDO 2%/EPINEPHRINE 1:100,000 20 ML VIAL INFILTRATE (08:20)
[2020-12-03] MEDS: ceFAZolin SODIUM 1 GM VIAL IV PUSH (11:36)
--- NOTE | 2020-12-03 16:47 | W.PM.PROC2 ---
Procedure Note - Detailed Date of Procedure 12/07/20 Pre-op Diagnosis sigmoid colon stricture, diverticulosis Post-op Diagnosis same Procedure Performed Hand assisted laparoscopic left colon resection with splenic flexure takedown Diverting loop ileostomy on the right Surgeon Mayur Mcclure MD Choir Director Lashon Khoury, Scoop Filler Anesthesia general Indications This patient is a pleasant 65-year-old obese white female who recently presented to the hospital after a colonoscopy done as an outpt with a pediatric colonoscope. She was having abdominal pain and a CT scan was obtained which showed free air. Her white count was normal and she did not have a lot of peritoneal findings, therefore she was treated with antibiotics and followed. This was about 2 months ago. Subsequently I obtained the records from her GI physician and she does did have a stricture noted in the sigmoid colon. Because of this a Gastrografin enema was done prior to her discharge in September and this confirmed this stricture in the distal sigmoid. She did well on a low fiber diet for the last 2 months but it was felt that in view of her recent signs of perforation and the stricture that she should have a left hemicolectomy since the diverticuli extended at least group home up the descending colon and if not done the pt would not be able to resume a high fiber diet which she would need to prevent further problems with her diverticuli. Therefore, the risks benefits possible complications of this were discussed with her and she stayed on a low-fiber diet for the last 2 months in order to be able to avoid problems with her diverticular disease. She presents now knowing the various risks as discussed above stated in her history and physical. Findings Dense adhesions between the mid sigmoid colon and the left pelvic sidewall including being folded over on the rectum. Description of Procedure Hand assisted Laparoscopic left colectomy with anastomosis The patient was seen in the preop area. The suprapubic area marked for the site of possible hand assist incision. I again went over the risks, benefits, and possible complications of surgery with the patient. We went over the results of the prep. I confirmed the patient had received Entereg. Following this the patient was brought to the operating room and placed on the operating table and secured to the table with a joaquin bag padding the back. The patient was placed in the low lithotomy position with the legs in the Julio stirrups. Alvarado catheter was then placed. An OG tube was then placed. Following this 2 L of NS irrigant was used to irrigate out the rectum using a Malenkaut catheter. Betadine was then infused into this catheter using approximately 500 cc. This was allowed to run back out. The catheter was then left in place in the distal rectum. Following this the abdomen was prepped and draped in usual sterile fashion sterile fashion. The perineum was prepped with Betadine. An under the buttocks and leg drapes were applied followed by 4 towels and then the laparotomy / laparoscopy drape applied. This exposed nicely the entire abdomen. Following this time-out was performed with the OR staff. This confirmed patient and site of proposed surgery as the abdomen. Following this local anesthetic was infiltrated into a transverse incision marked out 2 fingerbreadths above the level of the pubic bone. This was centered on the midline. It was approximately 8.5 cm in length. Following this an incision was made and carried down to the fascia overlying the rectus sheath in this area. The anterior rectus sheath was incised the length of this incision transversely. Following this three Lena's were placed on the upper side of the cut edge of the rectus. I then carefully dissected the rectus fascia off the underlying rectus muscles up to about group home from the incision to the umbilicus. This nicely exposed the fatty midline. Following this
[2020-12-03] MEDS: fentaNYL CITRATE INJ (*CRX) 100 MCG/2 ML VIAL 25 MCG IV PUSH ×4 (17:13→17:35)
[2020-12-03] MEDS: PROPARACAINE HCL 0.5% 15 ML OPHTH SOLN 1 DROP EACH EYE (17:22)
[2020-12-03] MEDS: ARTIFICIAL TEARS OPHTH SOLN 15 ML BOTTLE 1 DROP EACH EYE (17:30)
--- NOTE | 2020-12-03 17:38 | SUR.PHASEI ---
Simple mask removed at 1725.
--- NOTE | 2020-12-03 17:52 | SUR.PHASEI ---
1750: Patient used her own rescue inhaler. She took 2 puffs for shortness of breath.
[2020-12-03] MEDS: HYDROmorphone HCL INJ (*CRX) 1 MG/ML SYR 0.5 MG IV PUSH (18:09)
--- NOTE | 2020-12-03 19:06 | SUR.PHASEI ---
PT CONTINUES TO C/O RT EYE IRRITATION. KEEPS WANTING TO RUB RT EYE. BILAT EYES HAVE SCLERAL EDEMA. ASKING PT NOT TO RUB EITHER EYE. NO REDNESS NOTED
--- NOTE | 2020-12-03 19:19 | SUR.PHASEI ---
PT AWAKE AND TALKATIVE.
--- NOTE | 2020-12-03 19:30 | ADMGEN ---
This patient, Melissa Martinez, was admitted to Medical Room 341-01. Patient/family oriented to hospital policies and general routines including ID bracelet, bed and alarms, visiting hours, pain management, procedures, bathroom and other care routines, personal items, smoking policy, room service/diet, and visiting hours. Information on how to activate the Rapid Response Team has been discussed. Patient/Family are encouraged to report perceived risks to care and to ask questions if they do not understand what they are told or what they should do.
[2020-12-03] MEDS: LACTATED RINGERS 1,000 ML 100 ML IV CONT (19:37)
[2020-12-03] MEDS: FAMOTIDINE 20 MG/2 ML VIAL IV PUSH (20:12)
[2020-12-03] MEDS: DICLOFENAC SODIUM 0.1% OPHTH SOLN 2.5 ML BOTTLE 1 DROP EACH EYE (22:00)
[2020-12-03] MEDS: HYDROcodone/acetaminophen (*CRX) 7.5-325 MG TABLET 1 TAB PO (23:07)
[2020-12-04 02:03] VITALS: BP 116/62; PULSE 87; RESP 18; TEMP 35.9; O2SAT 96
[2020-12-04] MEDS: HYDROcodone/acetaminophen (*CRX) 5-325 MG TABLET 1 TAB PO (02:52)
[2020-12-04] MEDS: CLINDAMYCIN 900 MG/D5W 50 ML 900 MG/50 ML PIGGYBACK 50 MG IVPB (04:39)
[2020-12-04] MEDS: DICLOFENAC SODIUM 0.1% OPHTH SOLN 2.5 ML BOTTLE 1 DROP EACH EYE ×3 (05:24→21:31)
[2020-12-04] MEDS: MORPHINE SULFATE (*CRX) 4 MG/ML INJ IV PUSH ×3 (05:54→21:27)
[2020-12-04 06:03] VITALS: BP 111/64; PULSE 80; RESP 18; TEMP 36.6; O2SAT 97
[2020-12-04 06:30] LABS: Basophils Absolute Auto 0.1 K/mm3 (0.0-0.1); Basophils Percent Auto 0.4 % (0.2-1.2); Eosinophils Percent Auto 0.3 % (0-4.4); Hematocrit 31.7 % (37.0-47.0); Hemoglobin 10.7 g/dL (12.0-15.0); Immature Granulocyte Absolute 0.04 K/mm3 (0.00-0.031); Immature Granulocyte Percent A 0.4 % (0-0.5); Lymphocytes Absolute Auto 1.57 K/mm3 (0.9-3.2); Lymphocytes Percent Auto 13.8 % (18.3-44.2); Mean Corpuscular HGB Conc 33.8 g/dl (32-36); Mean Corpuscular Hemoglobin 28.5 pg (26-34); Mean Corpuscular Volume 84.5 fl (80-100); Monocytes Absolute Auto 1.3 K/mm3 (0.1-0.6); Monocytes Percent Auto 11.3 % (2.6-8.5); Neutrophils Absolute Auto 8.4 K/mm3 (1.3-6.7); Neutrophils Percent Auto 73.8 % (45.5-73.1); Platelet Count Result 265 k/mm3 (150-375); Red Blood Count 3.75 M/mm3 (4.2-5.4); Red Cell Distribution Width 13.3 % (11.5-14.5); White Blood Count 11.4 K/mm3 (4.5-10.0)
[2020-12-04 06:45] LABS: Alanine Aminotransferase 19 U/L (4-35); Albumin Level 3.3 g/dL (3.5-5.1); Alkaline Phosphatase 79 U/L (38-126); Anion Gap 6 mmol/L (8-16); Aspartate Amino Transferase 21 U/L (14-36); Bilirubin,Total 0.8 mg/dL (0.2-1.3); Blood Urea Nitrogen 25 mg/dL (7-17); Calcium 8.2 mg/dL (8.4-10.2); Carbon Dioxide 27 mmol/L (22-30); Chloride 100 mmol/L (98-107); Estimated CRCL calculation 90 ml/min; Estimated Glomerular Filt Rate > 60; Glucose 136 mg/dL (65-110); Potassium 3.7 mmol/L (3.4-5.0); Sodium 133 mmol/L (137-145)
[2020-12-04 08:51] LABS: Magnesium 1.5 mg/dL (1.6-2.3)
[2020-12-04] MEDS: ALVIMOPAN 12 MG CAPSULE PO ×2 (09:11→20:16)
[2020-12-04] MEDS: FAMOTIDINE 20 MG/2 ML VIAL IV PUSH ×2 (09:11→20:16)
[2020-12-04] MEDS: LACTATED RINGERS 1,000 ML 100 ML IV CONT ×2 (09:25→20:21)
[2020-12-04 10:03] VITALS: BP 125/71; PULSE 86; RESP 18; TEMP 37.2; O2SAT 100
[2020-12-04] MEDS: ENOXAPARIN 40 MG/0.4 ML SYRINGE SUB-Q (12:06)
[2020-12-04] MEDS: HYDROcodone/acetaminophen (*CRX) 7.5-325 MG TABLET 1 TAB PO ×3 (12:10→20:15)
[2020-12-04] MEDS: MAGNESIUM SULF 2 GM/WATER 50ML 2 GM/50 ML BAG IVPB (12:28)
--- NOTE | 2020-12-04 13:54 | PM.PNGS ---
Progress Note: A&P Assessment and Plan (1) Stricture of sigmoid colon: Code(s): K56.699 - Other intestinal obstruction unspecified as to partial versus complete obstruction Status: Acute Assessment and Plan: POD1 and patient is doing fair. She is mostly complaining of pain and not wanting to start increasing her activity. It does not seem like her pain regimen needs to be adjusted, because it is helping make her post-operative pain tolerable. We discussed the need to start working on increasing activity and try sitting on the edge of the bed or in a chair today. Will advance to clear liquids and restart her home medications. Wound care consulted for ostomy care and education. There was a blood clot that was sitting on the stoma this morning per the wound care nurse, once cleaned there was minor oozing around the edges of the stoma. Stoma appears viable and pink. Will continue to monitor and await ostomy output. Magnesium slightly low today, will replace with IV and start oral magnesium oxide. Repeat labs tomorrow morning. Encouraged IS use. Pathology pending. (2) Bipolar 1 disorder, depressed: Onset Date: Unknown Code(s): F31.9 - Bipolar disorder, unspecified Status: Acute Assessment and Plan: Restarted her home medication. Monitor. (3) Insomnia: Code(s): G47.00 - Insomnia, unspecified Status: Acute Assessment and Plan: Restarted Ambien. Valium is also on her medication list. Will hold for now and see how she does overnight. (4) Obesity: Code(s): E66.9 - Obesity, unspecified Status: Acute Additional Plan I have discussed the plan of care with Dr. Mcclure. Patient also has albuterol and Advair on home medication list but no mention of Asthma or pulmonary diagnosis. Will restart her home medication and Dr. Mcclure plans on questioning her about this. Subjective Subjective Date/Time Seen: 12/04/20 11:30 Post Op day: 1 (KARAN left colon resection, diverting loop ileostomy on the right) Patient reports: still having pain, tolerating liquids well (sips of liquids) and afebrile Interval history: This is a 65 yo F who was previously hospitalized for diverticulitis and a large amount of free air, but completely asymptomatic. She had a hypaque enema that showed a sigmoid stricture with diverticuli. She was treated medically and followed as an outpatient and decided to proceed with surgery. She presented yesterday for a KARAN left colon resection and diverting loop ileostomy by Dr. Mcclure. Patient was seen and examined this morning. Denies any nausea or vomiting. Reporting quit a bit of generalized abdominal pain and soreness. She has not gotten out of bed since surgery. She reports pain improves with current pain medication (she has taken the [place] and IV Morphine, with last dose of Morphine around 9:30 am). She does not feel that she could roll over in bed or sit up. She still has a Alvarado catheter in place. No SOB or chest pain. No other complaints at this time. Review of Systems Review of Systems: All systems reviewed & are unremarkable except as noted in HPI and below Constitutional: Constitutional: Reports as per HPI, Reports no additional constitutional complaints, Denies chills and Denies fever(s) Cardiovascular: Cardiovascular: Reports no additional cardiovascular complaints, Denies chest pain and Denies leg edema Respiratory: Respiratory: Reports no additional respiratory complaints, Denies cough and Denies dyspnea Gastrointestinal: Gastrointestinal: Reports as per HPI and Reports no additional gastrointestinal complaints Neurologic: Reports system reviewed and no additional complaints, except as documented, Denies Abnormal speech present and Denies focal weakness Exam Const: General: comfortable, no acute distress, alert and awake Nutritional Appearance: obese Orientation/consciousness: patient oriented x3 Resp: Effort & Inspection: normal respirator
[2020-12-04 14:03] VITALS: BP 119/63; PULSE 85; RESP 18; TEMP 36.9; O2SAT 99
[2020-12-04] MEDS: MORPHINE SULFATE (*CRX) 2 MG/ML INJ IV PUSH (15:05)
[2020-12-04] MEDS: DIVALPROEX SODIUM ER 250 MG TAB.24H PO (16:09)
[2020-12-04] MEDS: ARIPiprazole 2.5 MG TABLET PO (20:16)
[2020-12-04] MEDS: FLUTICASONE/SALMETEROL 230-21 MCG INHALER 1 PUFF 2 PUFF INHALATION (20:57)
[2020-12-04] MEDS: ONDANSETRON INJ 4 MG/2 ML VIAL IV PUSH (20:59)
[2020-12-04 21:55] VITALS: BP 138/70; PULSE 85; RESP 18; TEMP 36.1; O2SAT 92
[2020-12-05 02:16] VITALS: PULSE 98; RESP 18; O2SAT 95
[2020-12-05] MEDS: HYDROcodone/acetaminophen (*CRX) 7.5-325 MG TABLET 1 TAB PO ×4 (02:50→23:54)
[2020-12-05] MEDS: ONDANSETRON INJ 4 MG/2 ML VIAL IV PUSH ×2 (03:14→08:47)
[2020-12-05] MEDS: MORPHINE SULFATE (*CRX) 4 MG/ML INJ IV PUSH (04:21)
[2020-12-05] MEDS: DICLOFENAC SODIUM 0.1% OPHTH SOLN 2.5 ML BOTTLE 1 DROP EACH EYE ×3 (05:53→20:09)
[2020-12-05 06:03] VITALS: BP 143/72; PULSE 84; RESP 18; TEMP 36.6; O2SAT 89
[2020-12-05 06:13] LABS: Basophils Absolute Auto 0.1 K/mm3 (0.0-0.1); Basophils Percent Auto 0.6 % (0.2-1.2); Eosinophils Absolute Auto 0.1 K/mm3 (0-0.3); Eosinophils Percent Auto 0.6 % (0-4.4); Hematocrit 34.5 % (37.0-47.0); Hemoglobin 11.2 g/dL (12.0-15.0); Immature Granulocyte Absolute 0.06 K/mm3 (0.00-0.031); Immature Granulocyte Percent A 0.6 % (0-0.5); Lymphocytes Absolute Auto 1.36 K/mm3 (0.9-3.2); Lymphocytes Percent Auto 12.9 % (18.3-44.2); Mean Corpuscular HGB Conc 32.5 g/dl (32-36); Mean Corpuscular Hemoglobin 28.8 pg (26-34); Mean Corpuscular Volume 88.7 fl (80-100); Mean Platelet Volume 9.7 fl (7.4-10.4); Monocytes Percent Auto 9.4 % (2.6-8.5); Neutrophils Percent Auto 75.9 % (45.5-73.1); Platelet Count Result 257 k/mm3 (150-375); Red Blood Count 3.89 M/mm3 (4.2-5.4); Red Cell Distribution Width 13.5 % (11.5-14.5); White Blood Count 10.6 K/mm3 (4.5-10.0)
[2020-12-05 07:33] LABS: Anion Gap 2 mmol/L (8-16); Blood Urea Nitrogen 18 mg/dL (7-17); Calcium 8.8 mg/dL (8.4-10.2); Carbon Dioxide 33 mmol/L (22-30); Chloride 97 mmol/L (98-107); Estimated CRCL calculation 122 ml/min; Estimated Glomerular Filt Rate > 60; Glucose 128 mg/dL (65-110); Magnesium 1.9 mg/dL (1.6-2.3); Sodium 132 mmol/L (137-145)
[2020-12-05 08:03] LABS: Glucose Point of Care 125 mg/dl (65-105)
[2020-12-05] MEDS: MAGNESIUM OXIDE 400 MG TABLET PO (08:44)
[2020-12-05] MEDS: ARTIFICIAL TEARS OPHTH SOLN 15 ML BOTTLE 1 DROP EACH EYE (08:44)
[2020-12-05] MEDS: FLUoxetine HCL 20 MG CAPSULE 40 MG PO (08:44)
[2020-12-05] MEDS: FAMOTIDINE 20 MG/2 ML VIAL IV PUSH ×2 (08:44→20:09)
[2020-12-05] MEDS: DIVALPROEX SODIUM ER 250 MG TAB.24H PO ×2 (08:45→16:44)
[2020-12-05] MEDS: LACTATED RINGERS 1,000 ML 100 ML IV CONT (08:48)
[2020-12-05] MEDS: ALVIMOPAN 12 MG CAPSULE PO ×2 (11:00→20:08)
[2020-12-05] MEDS: HYDROcodone/acetaminophen (*CRX) 5-325 MG TABLET 1 TAB PO (12:00)
[2020-12-05] MEDS: FLUTICASONE/SALMETEROL 230-21 MCG INHALER 1 PUFF 2 PUFF INHALATION ×2 (13:06→20:16)
--- NOTE | 2020-12-05 13:45 | PM.PNGS ---
Progress Note: A&P Assessment and Plan (1) Stricture of sigmoid colon: Code(s): K56.699 - Other intestinal obstruction unspecified as to partial versus complete obstruction Status: Acute Assessment and Plan: POD#2 and improving. Pain is better controlled today. She has gotten up to the chair. I encouraged her to try ambulating in the room and slowly increasing activity. Ostomy seems to be functioning well. Will advance to full liquids and stop her IV fluids. Consider removing her Alvarado, will discuss with Dr. Mcclure. Magnesium improved. Continue oral magnesium for now. Monitor labs. Encouraged IS use. Pathology pending. (2) Bipolar 1 disorder, depressed: Onset Date: Unknown Code(s): F31.9 - Bipolar disorder, unspecified Status: Acute Assessment and Plan: On her home medication. Monitor. (3) Insomnia: Code(s): G47.00 - Insomnia, unspecified Status: Acute Assessment and Plan: Ambien restarted. She slept well overnight. Will continue to monitor. (4) Obesity: Code(s): E66.9 - Obesity, unspecified Status: Acute Additional Plan I have discussed the plan of care with Dr. Mcclure. Subjective Subjective Date/Time Seen: 12/05/20 12:45 Post Op day: 2 (KARAN left colon resection, diverting loop ileostomy on the right) Patient reports: feels better, pain is less, tolerating liquids well and afebrile Interval history: Patient seen and examined today. She reports feeling better today with less pain. She feels her pain is controlled this morning with [place]. She is sitting in the chair, which is the first time she has gotten up since surgery. She reports sleeping well last night. Reports the nurses have emptied her ostomy bag x 2 today, with the second time being so full of gas and liquid that it leaked all over her. Review of Systems Review of Systems: All systems reviewed & are unremarkable except as noted in HPI and below Constitutional: Constitutional: Reports as per HPI, Reports no additional constitutional complaints, Denies chills and Denies fever(s) Cardiovascular: Cardiovascular: Reports no additional cardiovascular complaints, Denies chest pain and Denies leg edema Respiratory: Respiratory: Reports no additional respiratory complaints, Denies cough and Denies dyspnea Gastrointestinal: Gastrointestinal: Reports as per HPI and Reports no additional gastrointestinal complaints Neurologic: Reports system reviewed and no additional complaints, except as documented, Denies Abnormal speech present and Denies focal weakness Exam Const: General: comfortable, no acute distress, alert and awake Orientation/consciousness: patient oriented x3 Resp: Effort & Inspection: normal respiratory effort Auscultation: clear to auscultation bilaterally Cardio: Rate: regular rate Rhythm: regular rhythm GI: Inspection: incision (Abdominal incision clean and dry), obesity and other (KADI drain with serosanguineous drainage) GI Palp: Yes Soft to palpation, Yes Tenderness to palpation present (GI) (improved, mostly incisional now) and No Guarding due to palpation present (GI) Auscultation: normal bowel sounds Other: Right-sided ileostomy with scant amount of yellow, pink liquid in the bottom of the bag and some gas. Stoma appears slightly darker pink, dusky today, but functioning. Some ecchymosis noted around the ostomy bag today with a few fluid-filled small blisters on the medial and inferior border of the dressing of the bag. Skin: General skin exam: normal color Neuro: General: moves all extremities and no focal motor deficits Extrem: General: no clubbing, cyanosis or edema and no calf tenderness Psych: Mental Status: mental status grossly normal Insight: Good insight present (Psych) Judgement: Good judgement present (Psych) Objective Data Vital Signs Vital Signs: Vital Signs - 24 hr 12/04/20 14:03 12/04/20 21:55 12/05/20 02:16 Temperature 98.5 F 97 F L
[2020-12-05 20:00] VITALS: BP 127/60; PULSE 78; RESP 20; TEMP 36.3; O2SAT 98
[2020-12-05] MEDS: ARIPiprazole 2.5 MG TABLET PO (20:08)
[2020-12-05] MEDS: SODIUM CHLORIDE 0.9% IV 1,000 ML 50 ML IV CONT (20:09)
[2020-12-05] MEDS: MORPHINE SULFATE (*CRX) 2 MG/ML INJ IV PUSH (20:13)
[2020-12-05 20:16] VITALS: PULSE 76; O2SAT 93
[2020-12-05] MEDS: ALBUTEROL SULFATE (*SP) AEROSOL 1 PUFF INHALATION (20:16)
[2020-12-06] MEDS: ONDANSETRON INJ 4 MG/2 ML VIAL IV PUSH ×2 (02:21→20:59)
[2020-12-06] MEDS: DICLOFENAC SODIUM 0.1% OPHTH SOLN 2.5 ML BOTTLE 1 DROP EACH EYE ×3 (05:55→21:12)
[2020-12-06] MEDS: HYDROcodone/acetaminophen (*CRX) 7.5-325 MG TABLET 1 TAB PO ×3 (05:58→21:11)
[2020-12-06 06:00] VITALS: BP 133/63; PULSE 72; RESP 16; TEMP 36.6; O2SAT 94
[2020-12-06 06:28] LABS: Hematocrit 31.7 % (37.0-47.0); Hemoglobin 10.1 g/dL (12.0-15.0); Mean Corpuscular HGB Conc 31.9 g/dl (32-36); Mean Corpuscular Volume 87.8 fl (80-100); Mean Platelet Volume 9.6 fl (7.4-10.4); Platelet Count Result 286 k/mm3 (150-375); Red Blood Count 3.61 M/mm3 (4.2-5.4); Red Cell Distribution Width 13.3 % (11.5-14.5); White Blood Count 10.4 K/mm3 (4.5-10.0)
[2020-12-06] MEDS: ALBUTEROL SULFATE (*SP) AEROSOL 1 PUFF INHALATION (06:34)
[2020-12-06 06:35] VITALS: PULSE 74
[2020-12-06 06:44] LABS: Anion Gap 2 mmol/L (8-16); Blood Urea Nitrogen 17 mg/dL (7-17); Calcium 8.6 mg/dL (8.4-10.2); Carbon Dioxide 36 mmol/L (22-30); Chloride 95 mmol/L (98-107); Estimated CRCL calculation 104 ml/min; Estimated Glomerular Filt Rate > 60; Glucose 130 mg/dL (65-110); Potassium 3.8 mmol/L (3.4-5.0); Sodium 133 mmol/L (137-145)
[2020-12-06] MEDS: FLUoxetine HCL 20 MG CAPSULE 40 MG PO (08:18)
[2020-12-06] MEDS: ALVIMOPAN 12 MG CAPSULE PO ×2 (08:19→21:12)
[2020-12-06] MEDS: DIVALPROEX SODIUM ER 250 MG TAB.24H PO ×2 (08:19→16:58)
[2020-12-06] MEDS: MAGNESIUM OXIDE 400 MG TABLET PO (08:19)
[2020-12-06] MEDS: FAMOTIDINE 20 MG/2 ML VIAL IV PUSH ×2 (08:19→21:11)
[2020-12-06] MEDS: ENOXAPARIN 40 MG/0.4 ML SYRINGE SUB-Q (09:58)
[2020-12-06] MEDS: HYDROcodone/acetaminophen (*CRX) 5-325 MG TABLET 1 TAB PO (12:34)
--- NOTE | 2020-12-06 12:40 | PM.PNGS ---
Progress Note: A&P Assessment and Plan (1) Stricture of sigmoid colon: Code(s): K56.699 - Other intestinal obstruction unspecified as to partial versus complete obstruction Status: Acute Assessment and Plan: POD#3 and improving. Pain is better controlled today. She has gotten up to the chair and walked to the BR with help. I encouraged her to try ambulating in the room and the hallway thereby slowly increasing activity. Ostomy seems to be functioning well. Will advance to soft /heart healthy diet and stop her IV fluids. remove Alvarado today as O was adequate overnight. Magnesium improved. Continue oral magnesium for now. Monitor labs. Encouraged IS use. Pathology pending. (2) Bipolar 1 disorder, depressed: Onset Date: Unknown Code(s): F31.9 - Bipolar disorder, unspecified Status: Acute Assessment and Plan: On her home medication. Monitor. (3) Insomnia: Code(s): G47.00 - Insomnia, unspecified Status: Acute Assessment and Plan: Ambien restarted. She slept well overnight. Will continue to monitor. (4) Obesity: Code(s): E66.9 - Obesity, unspecified Status: Acute Assessment and Plan: I will have patient stick to a heart healthy or low-fat diet upon discharge. Subjective Subjective Date/Time Seen: 12/06/20 12:40 Post Op day: 3 ( status post left hemicolectomy with anastomosis and diverting ileostomy) Patient reports: no new complaints, flatus and other ( slight thickening of the ostomy output) Interval history: The patient is getting up in the chair moving better and beginning to walk in the room and hallway. Review of Systems Review of Systems: All systems reviewed & are unremarkable except as noted in HPI and below Constitutional: Constitutional: Reports as per HPI, Reports no additional constitutional complaints, Denies chills and Denies fever(s) Cardiovascular: Cardiovascular: Reports no additional cardiovascular complaints, Denies chest pain, Denies leg edema and Denies dyspnea Respiratory: Respiratory: Reports no additional respiratory complaints, Denies cough and Denies dyspnea Gastrointestinal: Gastrointestinal: Reports as per HPI and Reports no additional gastrointestinal complaints Neurologic: Reports system reviewed and no additional complaints, except as documented, Denies Abnormal speech present and Denies focal weakness Exam Const: General: comfortable, no acute distress, alert and awake Nutritional Appearance: obese Resp: Effort & Inspection: normal respiratory effort Auscultation: clear to auscultation bilaterally Cardio: Rate: regular rate Rhythm: regular rhythm GI: Inspection: incision (Abdominal incision clean and dry), obesity and other (KADI drain with serosanguineous drainage) Auscultation: normal bowel sounds Other: Right-sided ileostomy with scant amount of yellow liquid in the bottom of the bag and some gas. Stoma appears slightly darker pink today, and is functioning. Some ecchymosis noted around the ostomy bag today with a few fluid-filled small blisters on the medial and inferior border of the dressing of the bag. KDAI drain with serosanguineous fluid within it. ( approximately 170 cc out last 24 hours) Skin: General skin exam: normal color Neuro: General: moves all extremities and no focal motor deficits Speech: No Abnormal speech present Extrem: General: no clubbing, cyanosis or edema and no calf tenderness Psych: Mental Status: mental status grossly normal Insight: Good insight present (Psych) Judgement: Good judgement present (Psych) Objective Data Vital Signs Vital Signs: Vital Signs - 24 hr 12/05/20 20:00 12/05/20 20:16 12/06/20 06:00 Temperature 36.3 C L 36.6 C Pulse Rate 78 76 72 Respiratory Rate 20 16 Blood Pressure 127/60 133/63 Pulse Oximetry 98 93 94 12/06/20 06:35 Temperature Pulse Rate 74 Respiratory Rate Blood Pressure Pulse Oximetry Intake/Output Intake/Ou
[2020-12-06 15:39] VITALS: BP 118/77; PULSE 78; RESP 18; TEMP 36.8; O2SAT 95
[2020-12-06] MEDS: FLUTICASONE/SALMETEROL 230-21 MCG INHALER 1 PUFF 2 PUFF INHALATION (20:04)
[2020-12-06 21:01] VITALS: BP 145/72; PULSE 90; RESP 18; TEMP 36.3; O2SAT 95
[2020-12-06] MEDS: ARIPiprazole 2.5 MG TABLET PO (21:11)
[2020-12-07] MEDS: HYDROcodone/acetaminophen (*CRX) 5-325 MG TABLET 1 TAB PO (01:45)
[2020-12-07] MEDS: HYDROcodone/acetaminophen (*CRX) 7.5-325 MG TABLET 1 TAB PO ×4 (05:52→21:34)
[2020-12-07] MEDS: DICLOFENAC SODIUM 0.1% OPHTH SOLN 2.5 ML BOTTLE 1 DROP EACH EYE ×2 (06:00→12:24)
[2020-12-07 06:04] VITALS: BP 139/70; PULSE 78; RESP 16; TEMP 36.2; O2SAT 97
[2020-12-07 07:00] LABS: Basophils Absolute Auto 0.1 K/mm3 (0.0-0.1); Basophils Percent Auto 0.5 % (0.2-1.2); Eosinophils Absolute Auto 0.9 K/mm3 (0-0.3); Eosinophils Percent Auto 8.1 % (0-4.4); Hematocrit 34.9 % (37.0-47.0); Hemoglobin 11.2 g/dL (12.0-15.0); Immature Granulocyte Absolute 0.07 K/mm3 (0.00-0.031); Immature Granulocyte Percent A 0.6 % (0-0.5); Lymphocytes Absolute Auto 2.25 K/mm3 (0.9-3.2); Lymphocytes Percent Auto 20.4 % (18.3-44.2); Mean Corpuscular HGB Conc 32.1 g/dl (32-36); Mean Corpuscular Hemoglobin 28.6 pg (26-34); Mean Corpuscular Volume 89.3 fl (80-100); Mean Platelet Volume 9.6 fl (7.4-10.4); Monocytes Absolute Auto 1.1 K/mm3 (0.1-0.6); Monocytes Percent Auto 10.2 % (2.6-8.5); Neutrophils Absolute Auto 6.6 K/mm3 (1.3-6.7); Neutrophils Percent Auto 60.2 % (45.5-73.1); Platelet Count Result 388 k/mm3 (150-375); Red Blood Count 3.91 M/mm3 (4.2-5.4); Red Cell Distribution Width 13.6 % (11.5-14.5)
[2020-12-07 07:24] LABS: Alanine Aminotransferase 23 U/L (4-35); Albumin Level 3.8 g/dL (3.5-5.1); Alkaline Phosphatase 97 U/L (38-126); Anion Gap 7 mmol/L (8-16); Aspartate Amino Transferase 26 U/L (14-36); Bilirubin,Total 0.5 mg/dL (0.2-1.3); Blood Urea Nitrogen 16 mg/dL (7-17); Calcium 9.2 mg/dL (8.4-10.2); Carbon Dioxide 33 mmol/L (22-30); Chloride 95 mmol/L (98-107); Estimated CRCL calculation 103 ml/min; Estimated Glomerular Filt Rate > 60; Glucose 124 mg/dL (65-110); Magnesium 1.7 mg/dL (1.6-2.3); Potassium 3.7 mmol/L (3.4-5.0); Sodium 135 mmol/L (137-145)
[2020-12-07] MEDS: FLUTICASONE/SALMETEROL 230-21 MCG INHALER 1 PUFF 2 PUFF INHALATION (08:07)
[2020-12-07] MEDS: ALBUTEROL SULFATE (*SP) AEROSOL 1 PUFF INHALATION (08:12)
[2020-12-07] MEDS: FAMOTIDINE 20 MG/2 ML VIAL IV PUSH (08:47)
[2020-12-07] MEDS: ALVIMOPAN 12 MG CAPSULE PO ×2 (08:47→21:27)
[2020-12-07] MEDS: ENOXAPARIN 40 MG/0.4 ML SYRINGE SUB-Q (08:47)
[2020-12-07] MEDS: DIVALPROEX SODIUM ER 250 MG TAB.24H PO ×2 (08:48→16:02)
[2020-12-07] MEDS: FLUoxetine HCL 20 MG CAPSULE 40 MG PO (08:48)
[2020-12-07] MEDS: MAGNESIUM OXIDE 400 MG TABLET PO (08:49)
--- NOTE | 2020-12-07 09:28 | PM.PNGS ---
Progress Note: A&P Assessment and Plan (1) Stricture of sigmoid colon: Code(s): K56.699 - Other intestinal obstruction unspecified as to partial versus complete obstruction Status: Acute Assessment and Plan: POD#4 and improving. Pain is Gradually becoming less and fairly well controlled with crushed hydrocodone tablets. She has gotten up to the chair and walked to the BR with help. she however feels somewhat weak in wondered if she could use a walker for a while. I will get physical therapy to see and evaluate and home health to consider short-term walker until she is stronger. I encouraged her to try ambulating in the room and the hallway with nursing or physical therapy thereby slowly increasing activity. Ostomy seems to be functioning well. Has advanced to soft /heart healthy diet and seems to have state hydrated with the IV fluids stopped. remove Alvarado today as O was adequate overnight. Magnesium 1.7 today. Continue oral magnesium for now. Monitor labs. Encouraged IS use. Pathology discussed with patient showing diverticular disease without any surprising as. This was discussed with the patient and explanation of maintaining hydration with high ileostomy outputs further explained. (2) Bipolar 1 disorder, depressed: Onset Date: Unknown Code(s): F31.9 - Bipolar disorder, unspecified Status: Acute Assessment and Plan: On her home medication. Discussed with her that she may need to talk with her psychiatrist regarding a different formulation of the Depakote since it is in a slow release form and now this may come right on through the ileostomy and not get absorbed well. Monitor. (3) Insomnia: Code(s): G47.00 - Insomnia, unspecified Status: Acute Assessment and Plan: Ambien restarted. She slept well overnight. Will continue to monitor. (4) Obesity: Code(s): E66.9 - Obesity, unspecified Status: Acute Assessment and Plan: I will have patient stick to a heart healthy or low-fat diet upon discharge. Will consult PT for evaluation and plans for home going mobility Subjective Subjective Date/Time Seen: 12/07/20 09:28 Post Op day: 4 ( improving, possible cystitis or hematuria) Patient reports: nausea ( x1 with a little vomiting last night) and other ( noticed some bright red blood in the toilet after urinating.) Interval history: Patient states she is still wobbly when walking and wondered if she could use a walker. Otherwise doing okay with lots of ileostomy output but seems to be keeping up with liquids and did tolerate a soft breakfast this morning. Incisional pain gradually improving but still taking crushed pain medication. Patient noticed some pain pills or a pill of some kind in the ostomy bag this morning. Review of Systems Review of Systems: All systems reviewed & are unremarkable except as noted in HPI and below Constitutional: Constitutional: Reports as per HPI, Reports no additional constitutional complaints, Denies chills and Denies fever(s) Cardiovascular: Cardiovascular: Reports no additional cardiovascular complaints, Denies chest pain, Denies leg edema and Denies dyspnea Respiratory: Respiratory: Reports no additional respiratory complaints, Denies cough and Denies dyspnea Gastrointestinal: Gastrointestinal: Reports as per HPI, Reports no additional gastrointestinal complaints and Reports other ( Possible slight bloody drainage from the anal area) Genitourinary: Genitourinary: Reports as per HPI Comments: possible hematuria will get a cath urine specimen. Neurologic: Reports system reviewed and no additional complaints, except as documented, Denies Abnormal speech present and Denies focal weakness Exam Const: General: comfortable, no acute distress, alert and awake Nutritional Appearance: obese Resp: Effort & Inspection: normal respiratory effort Auscultation: clear to auscultation bilaterally Cardio: Rate: regu
[2020-12-07 11:25] LABS: Add Urine Microscopic? YES; Appearance Urine Clear (Clear); Bilirubin Urine Negative (Negative); Blood Urine 2+ (Negative); Color Urine Yellow (Yellow); Glucose Urine UA Negative (Negative); Ketones Urine Negative (Negative); Leukocyte Esterase Ur Negative LEU/UL (Negative); Mucus Urine Few /lpf; Nitrate Urine Negative (Negative); Protein Urine 1+ mg/dL (Negative); Specific Grav Ur 1.019 (1.001-1.035); Squamous Epithelial Cell Urine Rare /hpf (Few); Urobilinogen Urine Negative mg/dL (<2.0)
[2020-12-07 15:06] VITALS: BP 117/72; PULSE 78; RESP 16; TEMP 36.7; O2SAT 95
[2020-12-07] MEDS: ONDANSETRON HCL ODT 4 MG TABLET PO (19:16)
[2020-12-07 20:14] VITALS: PULSE 85; O2SAT 94
[2020-12-07] MEDS: ARIPiprazole 2.5 MG TABLET PO (21:27)
[2020-12-07 21:49] VITALS: BP 144/72; PULSE 82; RESP 18; TEMP 36.7; O2SAT 98
[2020-12-08] MEDS: HYDROcodone/acetaminophen (*CRX) 7.5-325 MG TABLET 1 TAB PO ×2 (03:07→09:35)
[2020-12-08 06:18] LABS: Basophils Absolute Auto 0.1 K/mm3 (0.0-0.1); Basophils Percent Auto 0.8 % (0.2-1.2); Eosinophils Absolute Auto 0.9 K/mm3 (0-0.3); Eosinophils Percent Auto 9.2 % (0-4.4); Hematocrit 32.6 % (37.0-47.0); Hemoglobin 10.6 g/dL (12.0-15.0); Lymphocytes Absolute Auto 2.02 K/mm3 (0.9-3.2); Lymphocytes Percent Auto 20.4 % (18.3-44.2); Mean Corpuscular HGB Conc 32.5 g/dl (32-36); Mean Corpuscular Hemoglobin 28.8 pg (26-34); Mean Corpuscular Volume 88.6 fl (80-100); Monocytes Percent Auto 10.4 % (2.6-8.5); Neutrophils Absolute Auto 5.8 K/mm3 (1.3-6.7); Neutrophils Percent Auto 58.2 % (45.5-73.1); Platelet Count Result 387 k/mm3 (150-375); Red Blood Count 3.68 M/mm3 (4.2-5.4); Red Cell Distribution Width 13.7 % (11.5-14.5); White Blood Count 9.9 K/mm3 (4.5-10.0)
[2020-12-08 06:40] LABS: Anion Gap 2 mmol/L (8-16); Blood Urea Nitrogen 17 mg/dL (7-17); Calcium 9.3 mg/dL (8.4-10.2); Carbon Dioxide 37 mmol/L (22-30); Chloride 96 mmol/L (98-107); Estimated CRCL calculation 103 ml/min; Estimated Glomerular Filt Rate > 60; Glucose 144 mg/dL (65-110); Potassium 4.2 mmol/L (3.4-5.0); Sodium 135 mmol/L (137-145)
[2020-12-08 07:58] LABS: Glucose Point of Care 132 mg/dl (65-105)
[2020-12-08 08:05] VITALS: PULSE 88; RESP 18
[2020-12-08 08:09] VITALS: PULSE 89; RESP 18; O2SAT 95
--- NOTE | 2020-12-08 09:13 | PM.DS ---
DS: Admitting Diagnosis Discharge Date 12/08/2020 Admitting Diagnosis sigmoid colon stricture, recurrent diverticulitis DS: Discharge Diagnosis Discharge Diagnosis (1) Stricture of sigmoid colon: Code(s): K56.699 - Other intestinal obstruction unspecified as to partial versus complete obstruction Status: Acute Assessment and Plan: s/p sigmoid colectomy and loop ileostomy, pt doing well, home c instructions for routine postop care, drain care and ostomy care, f/u next week in office for drain removal DS: Summary Hospital Course Reason for hospitalization: recurrent diverticulitis, sigmoid colon stricture Hospital Course: Patient is a 65-year-old female known to Dr. Mcclure for recurrent diverticulitis and sigmoid colon stricture. Patient was taken to the operating room on 12/03 for sigmoid colectomy and loop ileostomy, the full operative report for details of that procedure. Postop, the patient did well and was transferred to the floor. Over the next few days the patient slowly regained bowel function through her ileostomy. The patient was able to have her diet progressed without issue. The patient was working with physical therapy and has been cleared to be discharged to home at this time. The patient continues to have a moderate amount of serous sanguinous output from her KADI drain and she will be sent home with instructions for drain care. The patient is to follow-up with Dr. Mcclure in 1 week for likely drain removal. She will be sent home with ostomy supplies as well as p.o. analgesia. Status at Discharge Functional status at discharge: independent ambulation Overall status at discharge: patient is progressing back to baseline Time Spent with Patient Time attestation: Total time spent providing and/or coordinating discharge services: Time spent: Less than 30 minutes Exam Const: General: cooperative, comfortable and no acute distress Nutritional Appearance: obese Orientation/consciousness: patient oriented x3 Resp: Effort & Inspection: normal respiratory effort Auscultation: clear to auscultation bilaterally Cardio: Rate: regular rate Rhythm: regular rhythm GI: Inspection: normal to inspection and incision GI Palp: Yes Soft to palpation, No Tenderness to palpation present (GI), No Guarding due to palpation present (GI) and No Rigid due to palpation Other: KADI c moderate s/s output DS: Data Data Completed and Pending Completed studies during hospitalization: Pending at discharge 12/03/20 12:25 Surgical [PTH] Routine Surgical [PTH] Routine Surgical [PTH] Routine Labs on day of discharge: Labs from last 24 hours 12/08/20 12/08/20 12/08/20 07:55 06:04 06:04 WBC 9.9 RBC 3.68 L Hgb 10.6 L Hct 32.6 L MCV 88.6 MCH 28.8 MCHC 32.5 RDW 13.7 Plt Count 387 H MPV 9.0 Immature Gran % (Auto) 1.0 H Neut % (Auto) 58.2 Lymph % (Auto) 20.4 [place] % (Auto) 10.4 H Eos % (Auto) 9.2 H Baso % (Auto) 0.8 Lymph # (Auto) 2.02 [place] # (Auto) 1.0 H Eos # (Auto) 0.9 H Baso # (Auto) 0.1 Abs Immat Gran (auto) 0.10 H Absolute Neuts (auto) 5.8 Absolute Nucleated RBC 0.0 Nucleated RBC % 0.0 Sodium 135 L Potassium 4.2 Chloride 96 L Carbon Dioxide 37 H Anion Gap 2 L BUN 17 Creatinine 0.60 L Estim Creat Clear Calc 103 Estimated GFR > 60 Glucose 144 H POC Capillary Glucose 132 H Calcium 9.3 Urine Color Urine Appearance Urine pH Ur Specific [place] Urine Protein Urine Glucose (UA) Urine Ketones Ur Blood (Man) Urine Nitrate Urine Bilirubin Urine Urobilinogen Leukocyte Esterase Rfl Urine RBC Urine WBC Ur Squamous Epith Cells Urine Mucus 12/07/20 10:03 WBC RBC Hgb Hct MCV MCH MCHC RDW Plt Count MPV Immature Gran % (Auto) Neut % (Auto) Lymph % (Auto) [place] % (Auto) Eos % (Auto) Baso % (Auto) Lymph # (Auto) [place] # (
[2020-12-08] MEDS: FLUoxetine HCL 20 MG CAPSULE 40 MG PO (09:28)
[2020-12-08] MEDS: DIVALPROEX SODIUM ER 250 MG TAB.24H PO (09:28)
[2020-12-08] MEDS: ALVIMOPAN 12 MG CAPSULE PO (09:28)
[2020-12-08] MEDS: MAGNESIUM OXIDE 400 MG TABLET PO (09:28)
--- NOTE | 2020-12-08 09:38 | PCPTNOTE ---
On 12/08/20, the student, Jamie Carrera, provided care and completed [facility] documentation on this patient. I have reviewed the student's documentation and agree with the findings.
--- NOTE | 2020-12-18 10:43 | PCWOUND ---
WOCN NOTE patient in Dr Mcclure's office having trouble with ostomy appliance staying on. Educated patient on proper application process and applied new appliance. Weeping maceration to the peristomal skin. Stoma recessed below skin level and sitting in a deep skin fold with creases at 3 and 9 o'clock. patient has tried convex one piece, and two piece with belt loops. no success. patient reports not sealing powder down with skin prep. applied stoma powder to maceration areas, sealed down with skin prep. placed stoma paste in creases at 9 and 3 position, applied one piece flex cut to fit appliance, added brave strips to edges. Received order to set up patient as outpatient for continue education and care. patient and friend expressed understanding with education provided today.
== END 2020-12-08 10:30 | disposition home health service (06) | DRG 330 ==
LOC: ANH3MED 19:00
PROVIDERS: Nurse Practitioner Family; Admitting Provider Surgery; PCP Student in an Organized Health Care Education/Training Program; Visit Provider Surgery
PROC: 0D1E4Z4 Bypass Large Intestine to Cutaneous, Percutaneous Endoscopic Approach (ICD-10-PCS; principal; 2020-12-03 07:30)
DX: K56.699 Other intestinal obstruction unspecified as to partial versus complete obstruction (principal); K57.20 Diverticulitis of large intestine with perforation and abscess without bleeding; N30.01 Acute cystitis with hematuria; J95.812 Postprocedural air leak; Y83.2 Surgical operation with anastomosis, bypass or graft as the cause of abnormal reaction of the patient, or of later complication, without mention of misadventure at the time of the procedure; K66.0 Peritoneal adhesions (postprocedural) (postinfection); F31.9 Bipolar disorder, unspecified; K21.9 Gastro-esophageal reflux disease without esophagitis; E66.9 Obesity, unspecified; G47.00 Insomnia, unspecified; Z90.49 Acquired absence of other specified parts of digestive tract; Z90.710 Acquired absence of both cervix and uterus; Z68.36 Body mass index [BMI] 36.0-36.9, adult
CPT/HCPCS: 36415; 80048; 80053; 81001; 82948; 83735; 85025; 85027; 88305; 88307; 94640; 97161; A9270; C1729; J0690; J1100; J1170; J1650; J1885; J2250; J2270; J2370; J2405; J2704; J2710; J3010; J3475; J7030; J7120

== ENCOUNTER 2021-01-11 07:27 | Outpatient (RCR) | payer OTHER, MEDICAID, SELFPAY ==
[2020-12-19 10:21] VITALS: BMI 35.2
--- NOTE | 2020-12-20 10:29 | PCWOUND ---
WOCN NOTE patient called and states she has no ostomy bags left and the home health just left and the bag they put on is already off. patient was given a new box of appliances yesterday at the wound care visit. patient states she does not like the duoderm we tried and that it did not work either. patient instructed to use zinc oxide ointment on the peristomal maceration and use baby diapers to collect stool and change as much as needed. patient to call when peristomal maceration is closed to try appliances again. placed call to home health, they stated they just left pateints house and she had four appliances left.
--- NOTE | 2021-01-01 06:59 | WPDWOUNDNOTE ---
Wound Care Note Date/Time: 12/26/20 11:59 History: Melissa is a 65 y/o W female who returns to the wound ostomy center for Difficulty with keeping a seal on her ostomy bag at the site of her diverting ileostomy. She had a hand assisted laparoscopic left colon resection with splenic flexure takedown, a colorectal anastomosis and then,a diverting loop ileostomy on the right on 12/03/20. For the several days now the skin around the ostomy is irritated, broken down and she is having trouble keeping the bag on. Which is causing leakage. Her friend modified the ostomy belt so that it would fit her. Patient denies problems with any other incisions and the LLQ KADI drain site is healed. She reports she is having pain down inside where the ostomy. Wound history: the only wound is the red irritated skin surrounding her right lower quadrant ileostomy site. Please see description of the wound ostomy nurses for the wound. Basically she has irritated skin surrounding the ostomy due to irritation from the [place] and enzymes in the ileostomy output when she is unable to keep a bag in place. This looks like a mild second-degree burn with areas of rete Ling in some places. ( This would be re-epithelialization). The actual ostomy itself appears to be almost even with the skin or slightly retracted but is pink and healthy. There is yellowish brown very liquid Chyme occasionally exudate from the ostomy. Wound approximation: Yes ( Not really applicable as this is skin irritation) Wound width: 5 cm Wound length: 6 cm Wound depth: N/A Drainage: serous Surrounding tissue appearance: the skin in the area as various degrees of irritation with superficial skin breakdown. Tunneling: none Treatment/Procedures: Juliette and Allyssa our ostomy nurses are working with her to use various active agents on the skin to get it heal and we are trying a larger wound protector bag for the ostomy output at this time. They will continue working with her as an outpatient and with home health to try to get this under control. Assessment and Plan Assessment and plan (1) Stoma malfunction: Onset Date: ~11/2020 Status: Acute Assessment and Plan: Stoma actually is not malfunctioning, however due to leakage in attempts to keep a ostomy bag in place, the patient has excoriated skin around the stoma. The actual stoma itself looks healthy and pink. Where carefully working with the patient in trying to get her understand how to take care of the stoma and prevent the excoriation of the surrounding skin by the small bowel contents. (2) Ileostomy status: Code(s): Z93.2 - Ileostomy status Status: Acute Assessment and Plan: Continued care and work with our wound stoma ostomy nurses to obtain a satisfied satisfying seal around the diverting ileostomy. Since they diseased portion of the colon we believe has been removed, I may see if I feel comfortable doing a Gastrografin enema earlier than usual on this patient who has a difficult seal at the ostomy and if there is no sign of problems at the colorectal anastomosis we may be able to take her ostomy down sooner than 3-4 months. (3) Encounter for surgical aftercare following surgery on the digestive system: Onset Date: ~11/2020 Code(s): Z48.815 - Encounter for surgical aftercare following surgery on the digestive system Status: Acute Assessment and Plan: Patient is doing well now approximately 3 weeks postop except for the problems with her ostomy bag seal and surrounding skin excoriation. All other incisions are healing well with just slight separation and she is using triple antibiotic ointment on these and keeping them clean. (4) Obesity: Code(s): E66.9 - Obesity, unspecified Status: Acute (5) Diverticulitis: Code(s): K57.92 - Diverticulitis of intestine, part unspecified, without perforation or abscess without bleeding Status: Acute Review of Systems Review of
--- NOTE | 2021-01-07 07:55 | PCWOUND ---
WOCN NOTE Patient called to cancel today's appointment. States that wound team manager that was applied yesterday by Home health is firmly adhered with no signs of the bag or tape coming off. Home health is scheduled to come out to see patient thursday01/08/21 to change appliance.
== END 2021-03-15 11:16 | disposition home or self-care (01) ==
LOC: ANHWOC 07:27
PROVIDERS: PCP Student in an Organized Health Care Education/Training Program; Visit Provider Surgery
DX: K56.699 Other intestinal obstruction unspecified as to partial versus complete obstruction (principal); Z93.2 Ileostomy status
CPT/HCPCS: 99213; A9270; G0463

== ENCOUNTER 2021-02-01 08:33 | Outpatient (CLI) | payer OTHER, BC, SELFPAY ==
--- NOTE | ~2021-02-01 | XR_ITS ---
EXAMINATION: XR enema water soluble DATE: 02/01/2021 09:24 INDICATION: Sigmoid stricture status post resection. TECHNIQUE: A candle maker radiograph was obtained. A catheter was inserted into the patient's rectum. Contra st was infused by gravity. Fluoroscopic spot images and conventional radiographs were obtained. Fluor oscopy exposure time was 0.6 minutes. The total number of images was 32. COMPARISON: Enema 09/24/2020, CT abdomen and pelvis 09/21/2020 FINDINGS: There is a staple line in the sigmoid colon. There are scattered diverticula in the colon. No abnormal mass or stricture. No extraluminal leakage of contrast. The appendix is normal. IMPRESSION: 1. Diverticulosis of the colon. Reviewed, dictated and finalized at location A. [employer]ACT DRIVER
== END 2021-02-01 08:34 | disposition home or self-care (01) ==
LOC: ANHIMG 08:36
PROVIDERS: PCP Student in an Organized Health Care Education/Training Program; Visit Provider Surgery
DX: K56.699 Other intestinal obstruction unspecified as to partial versus complete obstruction (principal); Z90.49 Acquired absence of other specified parts of digestive tract; K57.30 Diverticulosis of large intestine without perforation or abscess without bleeding
CPT/HCPCS: 74270

== ENCOUNTER 2021-02-27 10:38 | Outpatient (CLI) | payer OTHER, BC, SELFPAY ==
[2021-02-27 11:58] LABS: Basophils Absolute Auto 0.1 K/mm3 (0.0-0.1); Basophils Percent Auto 0.9 % (0.2-1.2); Eosinophils Absolute Auto 0.2 K/mm3 (0-0.3); Eosinophils Percent Auto 2.6 % (0-4.4); Hematocrit 38.4 % (37.0-47.0); Hemoglobin 11.9 g/dL (12.0-15.0); Immature Granulocyte Absolute 0.05 K/mm3 (0.00-0.031); Immature Granulocyte Percent A 0.5 % (0-0.5); Lymphocytes Absolute Auto 2.36 K/mm3 (0.9-3.2); Lymphocytes Percent Auto 25.9 % (18.3-44.2); Mean Corpuscular Volume 77.4 fl (80-100); Mean Platelet Volume 9.5 fl (7.4-10.4); Monocytes Absolute Auto 0.8 K/mm3 (0.1-0.6); Monocytes Percent Auto 8.4 % (2.6-8.5); Neutrophils Absolute Auto 5.6 K/mm3 (1.3-6.7); Neutrophils Percent Auto 61.7 % (45.5-73.1); Platelet Count Result 335 k/mm3 (150-375); Red Blood Count 4.96 M/mm3 (4.2-5.4); Red Cell Distribution Width 14.6 % (11.5-14.5); White Blood Count 9.1 K/mm3 (4.5-10.0)
[2021-02-27 12:18] LABS: Alanine Aminotransferase 18 U/L (4-35); Alkaline Phosphatase 111 U/L (38-126); Anion Gap 11 mmol/L (8-16); Aspartate Amino Transferase 20 U/L (14-36); Bilirubin,Total 0.3 mg/dL (0.2-1.3); Blood Urea Nitrogen 15 mg/dL (7-17); Calcium 9.5 mg/dL (8.4-10.2); Carbon Dioxide 24 mmol/L (22-30); Chloride 102 mmol/L (98-107); Estimated Glomerular Filt Rate > 60; Glucose 119 mg/dL (65-110); Magnesium 1.8 mg/dL (1.6-2.3); Potassium 3.9 mmol/L (3.4-5.0); Sodium 137 mmol/L (137-145)
== END 2021-02-27 10:39 | disposition home or self-care (01) ==
LOC: ANHSURGERY 10:41
PROVIDERS: PCP Student in an Organized Health Care Education/Training Program; Visit Provider Surgery
DX: K56.699 Other intestinal obstruction unspecified as to partial versus complete obstruction (principal); Z93.2 Ileostomy status; Z01.818 Encounter for other preprocedural examination
CPT/HCPCS: 36415; 80053; 83735; 85025; 86850; 86900; 86901

== ENCOUNTER 2021-03-05 00:15 | Day surgery (SDC) | payer OTHER, MEDICAID, SELFPAY ==
--- NOTE | 2021-02-27 10:05 | PC.NURSE ---
Report to the Outpatient Waiting Room, entrance under the green pavilion located off [facility], at time _1000_ on date _03/05/21_. OR Time: _1200_. - You and your visitor will be asked a series of questions to screen for COVID 19 for your protection. - A mask is required within the hospital. - NO visitors are allowed at this time. Patient visitors will be guided where to wait when not with patient. Preoperative COVID Testing Requirements: No COVID Test needed if: (proof is required; if not received patient will have Rapid Test prior to entry) - Patient has received COVID Vaccine at least 14 days prior to procedure date or - Patient has positive COVID test result within last 90 days of surgery date. COVID Test needed if above criteria is not met If not COVID vaccinated a COVID test must be conducted within 72 hours of surgery and patient is asked to isolate self from time of testing until procedure. You will go to the [facility] for your COVID testing. The [facility] is located at the corner of [address] [facility]. You will only be called if COVID results are positive and your surgeon may reschedule your elective surgery date. Patients may have clear liquids (water, carbonated beverages, clear teas, apple juice) until 3 hours prior to surgery with a maximum of 20 ounces. (0900 AM) - No food from midnight until time of surgery - Infants may have breast milk until 4 hours before surgery, infant formula 6 hours prior to surgery. - Children will be allowed to drink immediately following surgery. If applicable, please bring a bottle or sippy cup to assist with drinking. Juice, water, soda, and popsicles are readily available. For infants on formula, please bring formula the day of surgery. Pacifiers are allowed. Take the following medications with a SIP of water the morning of surgery: _INHALER, DIVALPROEX, FLUOXETINE, VYVANSE, TYLENOL IF NEEDED_ Medications to discontinue per physician _N/A_ Date to take last dose Please no make-up, nail malaysian, hairspray, perfume, deodorant, or body powder the day of surgery. No jewelry (including any body piercings) or valuables the day of surgery, leave them at home. Please take a shower or bath the night before, or the morning of, surgery with an antibacterial soap. Wear comfortable, loose fitting clothing. Children are encouraged to wear pajamas. - Jewelry must be removed prior to entering the operating room. Rings and piercings that are not removed may be cut off. - The hospital will not accept responsibility for valuables. - Please leave all valuables, including medications, at home the day of surgery. If you are going home after surgery, a licensed security patrol driver must drive you home. - NO public transportation without another adult. - We recommend that an adult stay with you for 24 hours following discharge. - We also recommend that you do not drive, make important decision, drink alcoholic beverages, or take any drugs that were not prescribed by your health care provider for at least 24 hours after your discharge time. For Pediatric surgeries, we recommend two adults accompany the child home (only one inside the building at this time). Follow any additional instructions given to you from your surgeon. DIET, ENSURE BUNDLE, BOWEL PREP, HIBICLENS SHOWER DAY BEFORE & AM OF SURGERY Telephone instructions given to ___PT and asked if any additional questions and then verbalized understanding. Patient advised to call surgeon office or pre surgery nurse liaison [phone] if any additional questions.
[2021-02-27 10:58] VITALS: BP 158/94; PULSE 94; RESP 20; TEMP 37.2; O2SAT 99; BMI 33.8
[2021-03-05] VITALS (14 sets, daily range): BP systolic 109–158; BP diastolic 64–85; PULSE 86–100; RESP 14–20; TEMP 36.5–37.3; O2SAT 95–99
--- NOTE | 2021-03-05 10:43 | WPDANESEPPF ---
Anes - Initial Pre Proc Eval Procedure: Operation Date: 03/05/21 12:00 Proposed Procedures p Takedown of Loop Ileostomy Right Side Of Abdomen - Mayur Mcclure MD Date/Time: 03/05/21 10:43 Surgeon: Mayur Mcclure MD Pre Op Diagnosis: sigmoid colon stricture Patient Data Age: 65 Gender: F Height: 1.74 m Weight: 102.4 kg Last Vital Signs Temp 37.2 C 02/27/21 10:58 Pulse 94 02/27/21 10:58 Resp 20 02/27/21 10:58 BP 158/94 H 02/27/21 10:58 Pulse Ox 99 02/27/21 10:58 Allergies Allergy/AdvReac Type Severity Reaction Status Date / Time ciprofloxacin [From Cipro] Allergy Difficulty Verified 03/05/21 10:11 Breathing metronidazole [From Flagyl] Allergy Difficulty Verified 03/05/21 10:11 Breathing METALS CARMEN Allergy Mild Rash Uncoded 02/27/21 10:54 Home Medications Medication Instructions Recorded Confirmed Type Advair HFA 2 puff INHALATION BID 09/21/20 03/03/21 History Vyvanse 50 mg PO QAM 09/21/20 03/03/21 History albuterol 90 mcg INHALATION BID PRN 09/21/20 03/05/21 History aripiprazole [Abilify] 2.5 mg PO HS 09/21/20 03/03/21 History diazepam 2 mg PO HS 09/21/20 03/03/21 History diphenhydramine HCl [Benadryl 25 mg PO HS PRN 09/21/20 03/03/21 History Allergy] divalproex 250 mg PO BID 09/21/20 03/03/21 History fluoxetine [Prozac] 40 mg PO QAM 09/21/20 03/03/21 History omeprazole 20 mg PO QAM 09/21/20 03/03/21 History zolpidem 12.5 mg PO QPM 09/21/20 03/03/21 History dicyclomine 10 mg PO QID 10/15/20 03/03/21 History montelukast 10 mg PO HS 11/22/20 03/03/21 History acetaminophen [Tylenol Ex Str 500 mg PO Q6H PRN 02/27/21 02/27/21 History Rapid Release] Patient hx anesthesia problems: none Family hx anesthesia problems: none Results Review: All pre-operative results and documents have been reviewed as part of the pre-operative evaluation. [facility] Past Medical History Medical History Bipolar 1 disorder, depressed (Unknown) Bipolar disorder Chronic GERD (Unknown) Colon stricture Diverticulitis GERD (gastroesophageal reflux disease) Insomnia Stricture of sigmoid colon S/P colon resection Surgical History Surgical History History of cholecystectomy History of hemicolectomy lap left hemicolectomy w/ splenic flexure takedown, possible diverting loop ileostomy 12/03/20 History of hysterectomy Family History Family History Father Skin cancer Colon cancer Myocardial infarct Sibling COPD (chronic obstructive pulmonary disease) Mother COPD (chronic obstructive pulmonary disease) Social History Social History Smoking status: Never smoker Second hand tobacco smoke exposure: No Alcohol intake: never Substance use: never Substance use type: does not use Living arrangements: alone Gender identity (if verbalized by the patient): Female Spiritual care concerns: No Anes - Eval Final PreProcedure Day of Procedure 03/05/21 10:43 Patient weight: obese Heart: regular rate and rhythm Lungs: clear to auscultation Airway: Mallampati scale class II Neurological: alert and oriented Last oral intake: >/= 8 hours ASA classification: III Emergent: no Anesthetic plan: proceed Anesthesia type and monitoring: general ETT and standard monitoring Results Review: All pre-operative results and documents have been reviewed as part of the pre-operative evaluation. Informed Consent: The patient's anesthetic plan and its attendant risks and benefits were discussed with the patient/family/POA. Questions were solicited and answers provided to the satisfaction of the patient/family/POA.
[2021-03-05] MEDS: ACETAMINOPHEN 500 MG TABLET 1000 MG PO (10:47)
[2021-03-05] MEDS: KETOROLAC 15 MG/ML VIAL (*BKC) IV PUSH (10:49)
[2021-03-05] MEDS: LACTATED RINGERS 1,000 ML 30 ML IV CONT ×2 (10:54→15:11)
[2021-03-05] MEDS: ALVIMOPAN 12 MG CAPSULE PO ×2 (11:17→22:20)
--- NOTE | 2021-03-05 11:34 | WPDHPUPDATE1 ---
History and Physical Update Update Date/Time: 03/05/21 11:34 History and Physical has been reviewed, including an updated exam of the patient. There are NO changes in the patient's condition. Risks, benefits, and alternatives have been discussed and questions answered. Patient agrees to proceed with procedure.
[2021-03-05] MEDS: cefoTEtan DISODIUM INJ 2 GM in DEXTROSE 5% IN WATER 50 ML IVPB (11:56)
--- NOTE | 2021-03-05 15:21 | W.PM.PROC2 ---
Procedure Note - Detailed Date of Procedure 03/07/21 Pre-op Diagnosis 1.Ileostomy present due to anastomotic incompetence/failure 2.sigmoid colon stricture Post-op Diagnosis same Procedure Performed Ileostomy takedown with small bowel to small bowel anastomosis Surgeon Mayur Mcclure MD [employer] [place], [place] 1st assist Anesthesia general Indications In late November patient had a hand assisted left colon resection due to sigmoid stricture related to diverticular disease. Because at the time of the anastomosis of colon to rectum there was a leak when tested, we protected the anastomosis by doing a loop ileostomy. She patient tolerated the ileostomy okay after some initial difficulties with keeping a stomal bag in place. She has now had a Gastrografin enema showing no narrowing and no leak at the anastomotic site in the pelvis. Therefore, it is indicated to take down the ileostomy and restore intestinal continuity. Findings Small hernia slightly medial and above the defect in the fascia for the ostomy. Scarred somewhat narrowed small bowel that was in the abdominal wall. Description of Procedure In preparation the patient took 1 bottle of Mag citrate. She also took some Ensure surgery several times in the last 2 days prior to surgery. After appropriate preparation the preop area. She was brought to the operating room and general anesthesia established. Following this the ostomy bag was removed from the ileostomy site on her abdomen and all adhesives were cleansed from the skin. It appeared that there was still some significant skin irritation for about a 1 cm circumferential area around the stoma itself. Following this a sterile 4 x 4 was placed on the ostomy to catch any drainage as we prepped and the peristomal area was prepped with Betadine followed by chlorhexidine prep of the rest the abdomen. Following this appropriate draping was accomplished exposing the area the ostomy in the right mid abdomen and time-out was performed with the surgery team. After time-out we proceeded immediately to outline a elliptical transverse incision around the area of the ostomy. In order to come back to good healthy skin I decided to excise an ellipse of skin approximately 10 cm transversely by 4 cm above and below the ostomy. Incision was made and Bovie cautery was used for hemostasis and we dissected the subcutaneous tissues until we came down to the bowel within the subcutaneous tissues. Then I cut the skin from the edge of the ellipse to the mucocutaneous border of the upper outer rim of the ostomy. We then circumferentially dissected the subcutaneous tissue and skin away from the 2 loops of bowel that had been brought to the surface. All the subcutaneous tissue and skin that was excised was sent as a separate specimen labeled peristomal skin and scar with subcutaneous tissue. Following this using dissection with both sharp and blunt dissection and Bovie cautery we dissected all the subcu tissues away from the 2 loops of bowel. I then, right at the fascial level, carefully dissected circumferentially the bowel off of the muscle and fascia of the abdominal wall in the right side of the abdomen. Following this the small bowel came up into the wound nicely and we could see normal small bowel. I swept my finger completely around the inside of the opening and there was no further adhesions noted. Following this we inspected the other opening on the small bowel and I found it was difficult to tell exactly where the distal limb was positioned in relation to the more open proximal limb. Therefore I decided to do my anastomosis more proximal and excise approximately 10 cm of small bowel. With the small bowel being nicely freed up I did a [id number], functional end-to-end anastomosis with a 75 MIHAI stapler. This was accomplished by placing a single silk suture down near the fascia lining up the loops of small bowel anti mesenteric border to anti mesenter
[2021-03-05] MEDS: fentaNYL CITRATE INJ (*CRX) 100 MCG/2 ML VIAL 25 MCG IV PUSH ×4 (15:59→16:27)
--- NOTE | 2021-03-05 16:45 | PC.NURSE ---
This patient, Melissa Martinez, was admitted to [facility] Surgery-5. Patient oriented to hospital policies and general routines including ID bracelet, bed and alarms, visiting hours, pain management, procedures, bathroom and other care routines, personal items, smoking policy, room service/diet, and visiting hours. Information on how to activate the Rapid Response Team has been discussed. Patient encouraged to report perceived risks to care and to ask questions if they do not understand what they are told or what they should do.
[2021-03-05] MEDS: MORPHINE SULFATE (*CRX) 4 MG/ML INJ IV PUSH ×2 (17:39→23:44)
[2021-03-05] MEDS: LACTATED RINGERS 1,000 ML 100 ML IV CONT (17:40)
[2021-03-05] MEDS: HYDROcodone/acetaminophen (*CRX) 7.5-325 MG TABLET 1 TAB PO (20:12)
[2021-03-05] MEDS: FLUTICASONE/SALMETEROL 230-21 MCG INHALER 1 PUFF 2 PUFF INHALATION (20:14)
[2021-03-05] MEDS: ARIPiprazole 2.5 MG TABLET PO (21:59)
[2021-03-05] MEDS: diazePAM (*CRX) 2 MG TABLET PO (22:00)
[2021-03-05] MEDS: DIVALPROEX SODIUM ER 250 MG TAB.24H PO (22:19)
[2021-03-05] MEDS: MONTELUKAST SODIUM 10 MG TABLET PO (22:21)
[2021-03-06 02:00] VITALS: RESP 20
[2021-03-06 04:00] VITALS: BP 112/57; PULSE 68; RESP 20
[2021-03-06 04:55] LABS: Hematocrit 33.2 % (37.0-47.0); Hemoglobin 10.4 g/dL (12.0-15.0); Mean Corpuscular HGB Conc 31.3 g/dl (32-36); Mean Corpuscular Hemoglobin 24.2 pg (26-34); Mean Corpuscular Volume 77.2 fl (80-100); Mean Platelet Volume 9.6 fl (7.4-10.4); Platelet Count Result 323 k/mm3 (150-375); Red Cell Distribution Width 14.9 % (11.5-14.5); White Blood Count 14.9 K/mm3 (4.5-10.0)
[2021-03-06] MEDS: HYDROcodone/acetaminophen (*CRX) 7.5-325 MG TABLET 1 TAB PO ×2 (05:27→09:58)
[2021-03-06 05:31] LABS: Alanine Aminotransferase 18 U/L (4-35); Albumin Level 3.7 g/dL (3.5-5.1); Alkaline Phosphatase 86 U/L (38-126); Anion Gap 12 mmol/L (8-16); Aspartate Amino Transferase 25 U/L (14-36); Bilirubin,Total 0.5 mg/dL (0.2-1.3); Blood Urea Nitrogen 16 mg/dL (7-17); Carbon Dioxide 23 mmol/L (22-30); Chloride 99 mmol/L (98-107); Estimated CRCL calculation 85 ml/min; Estimated Glomerular Filt Rate > 60; Glucose 121 mg/dL (65-110); Potassium 3.9 mmol/L (3.4-5.0); Sodium 134 mmol/L (137-145)
[2021-03-06 06:00] VITALS: RESP 20
--- NOTE | 2021-03-06 07:19 | WPDANESPN ---
Anes - Prog Note Post-Op Date/Time: 03/06/21 07:19 Cardiovascular status: normal Respiratory status: normal Airway patency: baseline Mental status: baseline Post-Op hydration status: normal Vital Signs: Last Vital Signs Temp 98 F 03/05/21 16:45 Pulse 68 03/06/21 04:00 Resp 20 03/06/21 06:00 BP 112/57 L 03/06/21 04:00 Pulse Ox 97 03/05/21 20:00 Pain Score (VAS): 03/04 I/O: Intake & Output 03/05/21 03/05/21 03/06/21 15:59 23:59 07:59 Intake Total 50 300 50 Output Total 60 Balance 50 240 50 Laboratory Tests 03/06/21 04:36 03/06/21 04:36 03/06/21 03/06/21 04:36 04:36 WBC 14.9 H RBC 4.30 Hgb 10.4 L Hct 33.2 L MCV 77.2 L MCH 24.2 L MCHC 31.3 L RDW 14.9 H Plt Count 323 MPV 9.6 Sodium 134 L Potassium 3.9 Chloride 99 Carbon Dioxide 23 Anion Gap 12 BUN 16 Creatinine 0.70 Estim Creat Clear Calc 85 Estimated GFR > 60 Glucose 121 H Calcium 9.0 Total Bilirubin 0.5 AST 25 ALT 18 Alkaline Phosphatase 86 Total Protein 6.0 L Albumin 3.7 Post-procedural complaints: none Patient Feedback: Patient satisfied with anesthetic care.
[2021-03-06 08:34] VITALS: BP 122/65; PULSE 86; RESP 20; TEMP 37.3; O2SAT 96
[2021-03-06] MEDS: ALVIMOPAN 12 MG CAPSULE PO (09:53)
[2021-03-06] MEDS: FLUoxetine HCL 20 MG CAPSULE 40 MG PO (09:53)
[2021-03-06] MEDS: DIVALPROEX SODIUM ER 250 MG TAB.24H PO (09:54)
[2021-03-06] MEDS: ENOXAPARIN 40 MG/0.4 ML SYRINGE SUB-Q (09:57)
--- NOTE | 2021-03-06 10:45 | PCRCNOTE ---
PT. TOOK HER HOME INHLAER.
--- NOTE | 2021-03-06 14:37 | PM.DS ---
DS: Admitting Diagnosis Discharge Date 01/2022 Admitting Diagnosis 1. History of diverticular stricture with left colon resection 2.Need for ileostomy take down DS: Discharge Diagnosis Discharge Diagnosis (1) Ileostomy status: Onset Date: ~11/2020 Code(s): Z93.2 - Ileostomy status Status: Acute Assessment and Plan: this was the main reason for the patient's admission. She has had a barium enema study showing no stricture and no leakage at her previous colorectal anastomosis. She no longer needs the ileostomy and cavum can have reconstitution of bowel status. (2) Diverticulosis: Onset Date: Unknown Code(s): K57.90 - Diverticulosis of intestine, part unspecified, without perforation or abscess without bleeding Status: Acute Assessment and Plan: Patient had several episodes of diverticulitis in the past and on colonoscopy mid last year she was noted to have a significant stenosis in the mid to proximal sigmoid colon which Dr. Marisabel king could only get through with the pediatric colonoscope. She subsequently then came in with unexplained free air within the abdomen and the only explanation would of been a small per 5 reticular which did not require exploratory laparotomy. ( she improved just with observation and IV antibiotics). (3) BMI 33.0-33.9,adult: Onset Date: Unknown Code(s): Z68.33 - Body mass index [BMI] 33.0-33.9, adult Status: Acute Assessment and Plan: Encourage patient to gradually increased walking and stay on a low-fat low-fiber diet until she sees me in the office. (4) Bipolar 1 disorder, depressed: Onset Date: Unknown Code(s): F31.9 - Bipolar disorder, unspecified Status: Acute Assessment and Plan: Patient will continue usual medications. She is showing neither signs of depression nor nan. (5) Chronic GERD: Onset Date: Unknown Code(s): K21.9 - Gastro-esophageal reflux disease without esophagitis Status: Acute Assessment and Plan: Patient will continue on her home Omeprazole for this. DS: Summary Hospital Course Reason for hospitalization: patient admitted for extended stay after takedown of ileostomy. She needed to be watched until bowel function returned. Hospital Course: Patient unremarkable hospital course following surgery. She did take Entereg in order to reduce the time ileus intervene in her ability to discharge. She tolerated clears with sips overnight postop day 1 and then was gradually advanced through the morning into the afternoon to a low-fiber diet. She has had 1 very small and too larger bowel movements through the day today. She is not nauseated. She has had no significant respiratory trouble although he yesterday she felt like she had a sore throat and needed some hot tea to settle it. All home going instructions discussed with patient and are listed in the discharge. Status at Discharge Cognitive/behavioral status at discharge: return to baseline Functional status at discharge: independent ambulation Overall status at discharge: patient is not back to baseline ( willing to limit lifting due to abdominal incision) Time Spent with Patient Time attestation: Total time spent providing and/or coordinating discharge services: Time spent: Less than 30 minutes Specific discharge activities: 1. Gradually resume a low-fiber diet for approximately 10 days. 2. Begin taking granular Metamucil 1 adult dose daily for 5 days before her postop visit with me in the office 3. Patient should wear abdominal binder centered directly over the site of the transverse incision right lower abdomen. 4. Patient can call if there are any problems with the the running a fever or wound problems. Exam Const: General: cooperative, comfortable, alert and awake Orientation/consciousness: patient oriented x3 HENMT: Head: normal to inspection Mouth: Yes moist mucous membranes Ey
== END 2021-03-06 16:16 | disposition home health service (06) ==
LOC: ANHSURGERY 09:56 → ANHSUROVER 16:44
PROVIDERS: PCP Student in an Organized Health Care Education/Training Program; Visit Provider Surgery
PROC: (CPT 49000; principal; 2021-03-05 12:00)
DX: Z43.2 Encounter for attention to ileostomy (principal); K57.30 Diverticulosis of large intestine without perforation or abscess without bleeding; Z90.49 Acquired absence of other specified parts of digestive tract; K21.9 Gastro-esophageal reflux disease without esophagitis; F31.9 Bipolar disorder, unspecified; Z79.51 Long term (current) use of inhaled steroids; E66.9 Obesity, unspecified; Z68.32 Body mass index [BMI] 32.0-32.9, adult
CPT/HCPCS: 44620; 36415; 80053; 83735; 85025; 85027; 86850; 86900; 86901; 88304; 88305; 88307; A9270; J1100; J1170; J1650; J1885; J2250; J2270; J2405; J2704; J3010; J7120

== ENCOUNTER 2021-08-27 15:29 | Outpatient (CLI) | payer OTHER, MEDICAID, SELFPAY ==
--- NOTE | ~2021-08-27 | MM_ITS ---
EXAMINATION: MM screening eddie BI w mer HISTORY: Screening TECHNIQUE: Craniocaudal and mediolateral oblique 3-D tomosynthesis images were obtained and synthetic 2-D images were generated. CAD analysis was submitted and interpreted. COMPARISON: 01/09/2016 BREAST PARENCHYMAL COMPOSITION: The breasts are heterogenously dense, which may obscure small masses FINDINGS: There is no evidence of suspicious mass, calcification, or architectural distortion to sugg est malignancy in either breast. There has been no suspicious interval change. IMPRESSION: 1. No mammographic evidence of malignancy. 2. Recommend routine screening mammography in one year. BI-RADS Category 1: Negative Reviewed, dictated and finalized at location A.
--- NOTE | ~2021-08-27 | DEXA_ITS ---
Bone Density Report Name: SHILA GIL Age: 66 Sex: Female Ethnicity: White Date of : 1955 Indication: postmenopausal; screening for osteoporosis; height loss; asthma or emphysema; hysterectomy; Referring Provider: ESTEFANI, JAMISON Study: Bone densitometry was performed. Exam Date: August 27, 2021 Accession number: [id number] Bone Density: Region BMD T-score Z-score Classification AP Spine(L1-L4) 0.970 -0.7 1.1 Normal Femoral Neck (Left) 0.593 -2.3 -0.7 Osteopenia Total Hip (Left) 0.812 -1.1 0.2 Osteopenia Femoral Neck (Right) 0.591 -2.3 -0.7 Osteopenia Total Hip (Right) 0.753 -1.5 -0.3 Osteopenia Total Hip Mean 0.783 -1.3 -0.1 Osteopenia World Health Organization criteria for BMD impression classify patients as: Normal (T-score at or above -1.0), Osteopenia (T-score between -1.0 and -2.5), or Osteoporosis (T-score at or below -2.5). 10-year Fracture Risk(1): Major Osteoporotic Fracture 11% Hip Fracture 1.9% Reported Risk Factors: [place] (), Neck BMD=0.593, BMI=36.6 (1) FRAX(R) Version 3.08. Fracture probability calculated for an untreated patient. Fracture probability may be lower if the patient has received treatment. Clinical Information Provided by Patient: Has used the following medications: Vitamin D, Calcium Has the following medical conditions: Asthma or Emphysema, Hysterectomy Patient maximum height was 69 Menopause Age: 46 No regular weight bearing exercise Onset of menses at age 12 Number of children 1 Impression: The patient has low bone mass, based on the Left Femoral Neck T-score. The patient has an estimated ten-year risk of hip fracture of 1.9% and an estimated ten-year risk of major fracture of 11%, based on the WHO FRAX algorithm. Discussion: BONE DENSITY IS LOW AT ONE OR MORE SKELETAL SITES. This patient's lowest T-score is low at one or more skeletal sites. It meets the World Health Organization's (WHO) criteria for ?low bone mass? (T-score between -1.0 and -2.5). The patient's 10-year risk of fracture as calculated by FRAX is less than the threshold where pharmacological therapy is recommended by the National Osteoporosis Foundation (NOF). However, all treatment decisions require clinical judgment and consideration of individual patient factors, including patient preferences, comorbidities, previous drug use, risk factors not captured in the FRAX model (e.g., frailty, falls, vitamin D deficiency, increased bone turnover, interval significant decline in bone density) and possible under or overestimation of fracture risk by FRAX. The patient should follow a healthful lifestyle (good nutrition with adequate calcium and vitamin D, and appropriate weight-bearing exercise). Follow-Up: Consider repeating this study in 2 to 3 years to rhett
== END 2021-08-27 15:30 | disposition home or self-care (01) ==
LOC: ANHIMG 15:30
PROVIDERS: PCP Student in an Organized Health Care Education/Training Program; Visit Provider Student in an Organized Health Care Education/Training Program
DX: Z12.31 Encounter for screening mammogram for malignant neoplasm of breast (principal); Z78.0 Asymptomatic menopausal state; M85.852 Other specified disorders of bone density and structure, left thigh; M85.851 Other specified disorders of bone density and structure, right thigh
CPT/HCPCS: 77063; 77067; 77080

== ENCOUNTER 2022-01-09 10:22 | Outpatient (CLI) | payer OTHER, MEDICAID, SELFPAY ==
--- NOTE | ~2022-01-09 | XR_ITS ---
EXAMINATION: XR chest 2V 01/09/2022 10:59 INDICATION: History of asthma. Preoperative knee surgery clearance. PROCEDURE: PA and lateral views of the chest COMPARISON: Comparison to multiple prior studies sequentially, with oldest reviewed study dated 11/23. FINDINGS: The lungs are clear. The cardiomediastinal silhouette is within normal limits. There are no pleural effusions. There is no pneumothorax suspected. IMPRESSION: 1: NO ACUTE CARDIOPULMONARY DISEASE. Reviewed, dictated and finalized at location A. GATHERER
[2022-01-09 11:20] LABS: Basophils Absolute Auto 0.1 K/mm3 (0.0-0.1); Basophils Percent Auto 0.8 % (0.2-1.2); Eosinophils Absolute Auto 0.2 K/mm3 (0-0.3); Eosinophils Percent Auto 2.1 % (0-4.4); Hematocrit 42.5 % (37.0-47.0); Immature Granulocyte Absolute 0.03 K/mm3 (0.00-0.031); Immature Granulocyte Percent A 0.4 % (0-0.5); Lymphocytes Absolute Auto 2.06 K/mm3 (0.9-3.2); Lymphocytes Percent Auto 27.5 % (18.3-44.2); Mean Corpuscular HGB Conc 32.9 g/dl (32-36); Mean Corpuscular Hemoglobin 29.6 pg (26-34); Mean Corpuscular Volume 89.9 fl (80-100); Mean Platelet Volume 9.8 fl (7.4-10.4); Monocytes Absolute Auto 0.7 K/mm3 (0.1-0.6); Monocytes Percent Auto 8.8 % (2.6-8.5); Neutrophils Absolute Auto 4.5 K/mm3 (1.3-6.7); Neutrophils Percent Auto 60.4 % (45.5-73.1); Platelet Count Result 254 k/mm3 (150-375); Red Blood Count 4.73 M/mm3 (4.2-5.4); Red Cell Distribution Width 12.9 % (11.5-14.5); White Blood Count 7.5 K/mm3 (4.5-10.0)
[2022-01-09 11:30] LABS: Hemoglobin A1C 5.6 % (<5.7)
[2022-01-09 11:32] LABS: Alanine Aminotransferase 18 U/L (6-35); Alkaline Phosphatase 91 U/L (38-126); Anion Gap 8 mmol/L (8-16); Aspartate Amino Transferase 19 U/L (14-36); Bilirubin,Total 0.6 mg/dL (0.2-1.3); Blood Urea Nitrogen 20 mg/dL (7-17); Calcium 9.1 mg/dL (8.4-10.2); Carbon Dioxide 27 mmol/L (22-30); Chloride 103 mmol/L (98-107); Estimated Glomerular Filt Rate > 60; Glucose 88 mg/dL (65-110); Potassium 4.3 mmol/L (3.4-5.0); Sodium 138 mmol/L (137-145)
[2022-01-09 11:36] LABS: Iron 66 ug/dL (37-170)
[2022-01-09 11:45] LABS: Percent Iron Saturation 15 % (20-50)
== END 2022-01-09 10:23 | disposition home or self-care (01) ==
PROVIDERS: PCP Student in an Organized Health Care Education/Training Program; Visit Provider Student in an Organized Health Care Education/Training Program
DX: D50.0 Iron deficiency anemia secondary to blood loss (chronic) (principal); Z01.818 Encounter for other preprocedural examination; R73.09 Other abnormal glucose
CPT/HCPCS: 36415; 71046; 80053; 83036; 83540; 83550; 85025

== ENCOUNTER 2022-01-13 14:02 | Outpatient (CLI) | payer OTHER, MEDICAID, SELFPAY ==
--- NOTE | 2022-01-13 15:11 | ECG_ITS ---
Measurements Intervals [place] Rate: 54 P: 60 [place]: 170 QRS: -22 QRSD: 90 T: 47 QT: 432 QTc: 413 Interpretive Statements SINUS BRADYCARDIA BORDERLINE R WAVE PROGRESSION, ANTERIOR LEADS LOW QRS VOLTAGE IN PRECORDIAL LEADS BASELINE ARTIFACT- II, V3-V6 BORDERLINE ECG COMPARED TO ECG 09/21/2020 20:40:11 SINUS BRADYCARDIA NOW PRESENT Electronically Signed On 01-13-2022 15:47:03 WINDOW SYSTEMS ADMINISTRATOR by Rakesh Clayton D.O.
[2022-01-13 15:55] LABS: Urine Cotinine NEGATIVE
== END 2022-01-13 14:03 | disposition home or self-care (01) ==
PROVIDERS: Anesthesiology; PCP Student in an Organized Health Care Education/Training Program; Visit Provider Orthopaedic Surgery
DX: M17.11 Unilateral primary osteoarthritis, right knee (principal); Z01.818 Encounter for other preprocedural examination; R94.31 Abnormal electrocardiogram [ECG] [EKG]
CPT/HCPCS: 36415; 80164; 80307; 87147; 93005

== ENCOUNTER 2022-02-03 02:00 | Day surgery (SDC) | payer OTHER, MEDICAID, SELFPAY ==
[2022-01-13 14:13] VITALS: BMI 37.8
--- NOTE | 2022-01-13 14:41 | PC.NURSE ---
Report to the Outpatient Waiting Room, entrance under the green pavilion located off [facility], at time __0600 on date __02/03/22 . Planned Procedure Time: 729 . Time changes happen often and if your time is changed the preop area will call you the afternoon before. - You and your visitor will be asked to self-screen and do not enter if you have any COVID symptoms. - Only one visitor is requested with a max of two and NO children visitors are allowed at this time. - The patient visitor may be requested to leave or wait in car when not with patient due to distancing restrictions. - A mask is optional within the hospital. Patients may have clear liquids (water, carbonated beverages, clear teas, apple juice) until 3 hours prior to surgery with a maximum of 20 ounces. - No food from midnight until time of surgery - Infants may have breast milk until 4 hours before surgery, infant formula 6 hours prior to surgery. - Children will be allowed to drink immediately following surgery. If applicable, please bring a bottle or sippy cup to assist with drinking. Juice, water, soda, and popsicles are readily available. For infants on formula, please bring formula the day of surgery. Pacifiers are allowed. Take the following medications with a SIP of water the morning of surgery: _ADVAIR INHALER,ARIPIPRAZOLE,DIVALPROEX,FLUOXETINE Medications to discontinue per physician ____ALEVE/IBUPROFEN/MOTRIN/ASPIRIN 7 DAYS PRE OP Date to take last dose___01/26/22 Please no make-up, nail portuguese, hairspray, perfume, deodorant, or body powder the day of surgery. No jewelry (including any body piercings) or valuables the day of surgery, leave them at home. Please take a shower or bath the night before, or the morning of, surgery with an antibacterial soap. Wear comfortable, loose fitting clothing. Children are encouraged to wear pajamas. - Jewelry must be removed prior to entering the operating room. Rings and piercings that are not removed may be cut off. - The hospital will not accept responsibility for valuables. - Please leave all valuables, including medications, at home the day of surgery. If you are going home after surgery, a licensed warehouse delivery driver must drive you home. - NO public transportation without another adult if you receive anesthesia. - We recommend that an adult stay with you for 24 hours following discharge. - We also recommend that you do not drive, make important decision, drink alcoholic beverages, or take any drugs that were not prescribed by your health care provider for at least 24 hours after your discharge time. For Pediatric surgeries, we recommend two adults accompany the child home. Follow any additional instructions given to you from your surgeon. If you or anyone in your household have experienced Covid symptoms in the past week, please notify your surgeon or the nurse liaison at the phone number below for possible testing. VERBAL AND WRITTEN instructions given to ___PATIENT AND FRIEND LENI FRANCIS and asked if any additional questions and then verbalized understanding. Patient advised to call surgeon office or pre surgery nurse liaison [phone] if any additional questions.
[2022-01-13 15:12] VITALS: BP 126/56; PULSE 60; RESP 18; TEMP 37.3; O2SAT 97
--- NOTE | 2022-01-29 12:18 | PM.IMHP ---
H&P: HPI History of Present Illness Date/Time: 01/29/22 12:18 Chief Complaint: Bilateral knee DJD Narrative: 66-year-old female patient of Dr. Shell who presents today for a right total knee arthroplasty with cortisone injection left knee. Patient has severe lateral compartment osteoarthritis in both knees. Her right knee is more symptomatic than left at this point. They have been painful for her for several years. She has been using [id number] anti-inflammatories without improvement of her symptoms. X-rays show severe lateral compartment osteoarthritis with a significant valgus alignment. Patient has reached a point where she feels that her symptoms are bothering her enough on a daily basis and is affecting her daily lifestyle and she feels she is ready proceed with total knee arthroplasty at this point. Review of Systems Review of Systems: All systems reviewed & are unremarkable except as noted in HPI and below PMFSH Past Medical History Medical History (Updated 02/03/22 @ 06:57 by Ru Gee MD) Anxiety Asthma Bipolar 1 disorder, depressed (Unknown) Bipolar disorder Chronic GERD (Unknown) Colon stricture COPD (chronic obstructive pulmonary disease) Diverticulitis GERD (gastroesophageal reflux disease) Insomnia Obesity (BMI 30-39.9) Stricture of sigmoid colon S/P colon resection Surgical History Surgical History History of cholecystectomy History of hemicolectomy lap left hemicolectomy w/ splenic flexure takedown, possible diverting loop ileostomy 12/03/20 History of hysterectomy Family History Family History Father Skin cancer Colon cancer Myocardial infarct Sibling COPD (chronic obstructive pulmonary disease) Mother COPD (chronic obstructive pulmonary disease) Social History Social History Smoking status: Never smoker Second hand tobacco smoke exposure: No Additional smoking assessment comments: DENIES ANY FORM OF TOBACCO USE Alcohol intake: never Substance use: never Substance use type: does not use Living arrangements: alone Gender identity (if verbalized by the patient): Female Spiritual care concerns: No Meds Home Medications and Allergies Home Medications Medication Instructions Recorded Confirmed Type albuterol 90 mcg/actuation aerosol 90 mcg inhalation BID PRN 09/21/20 01/13/22 History inhaler Shortness Of Breath Or Wheezing diphenhydramine HCl 25 mg tablet 25 mg PO HS PRN Allergy Symptoms 09/21/20 02/03/22 History (Benadryl Allergy) fluoxetine 40 mg capsule (Prozac) 40 mg PO QAM 09/21/20 02/03/22 History fluticasone propionate 230 2 puff inhalation BID 09/21/20 02/03/22 History mcg-salmeterol 21 mcg/actuation HFA inhaler (Advair HFA) omeprazole 20 mg capsule,delayed 20 mg PO QAM 09/21/20 02/03/22 History release dicyclomine 20 mg tablet 10 mg PO QID 10/15/20 02/03/22 History montelukast 10 mg tablet 10 mg PO HS 11/22/20 02/03/22 History acetaminophen 500 mg tablet 500 mg PO Q6H PRN Pain 02/27/21 02/03/22 History fluoxetine 10 mg capsule 10 mg PO HS 01/13/22 02/03/22 History naproxen sodium 220 mg tablet 440 mg PO Q12H PRN Pain 01/13/22 02/03/22 History (Aleve) oxybutynin chloride 15 mg 15 mg PO DAILY 01/13/22 02/03/22 History tablet,extended release 24 hr divalproex 250 mg tablet,delayed 250 mg PO BID 02/03/22 02/03/22 History release Allergies Allergy/AdvReac Type Severity Reaction Status Date / Time ciprofloxacin [From Cipro] Allergy Difficulty Verified 02/03/22 06:10 Breathing metronidazole [From Flagyl] Allergy Difficulty Verified 02/03/22 06:10 Breathing METALS CARMEN Allergy Mild Rash Uncoded 02/03/22 06:10 Exam Narrative: 66-year-old female alert pleasant. She is 5 ft 6 and 246 lb, her BMI is 39.7. Right knee range of m
[2022-02-03] VITALS (16 sets, daily range): BP systolic 102–146; BP diastolic 52–94; PULSE 71–100; RESP 12–20; TEMP 36.4–36.8; O2SAT 92–100
--- NOTE | ~2022-02-03 | XR_ITS ---
EXAMINATION: XR knee RT 2V DATE: 02/03/2022 11:29 INDICATION: Total right knee arthroplasty. Postop. TECHNIQUE: 2 views of right knee were obtained. COMPARISON: Right knee radiographs 03/29/2015 FINDINGS: There is a total right knee arthroplasty with patellar resurfacing in near-anatomic alignme nt. No fracture. There is gas in the knee joint and soft tissues, consistent with recent surgery. The re is a small knee joint effusion. IMPRESSION: 1. Total right knee arthroplasty in near-anatomic alignment. Reviewed, dictated and finalized at location A. AW MATCHER
[2022-02-03] MEDS: ACETAMINOPHEN 500 MG TABLET 1000 MG PO ×3 (06:18→22:07)
--- NOTE | 2022-02-03 06:53 | WPDANESEPPF ---
Anes - Initial Pre Proc Eval Procedure: Operation Date: 02/03/22 07:30 Proposed Procedures p Right Total Knee Arthroplasty, Cortisone Injection Lt Knee - Manjinder Suarez MD Date/Time: 02/03/22 06:53 Surgeon: Manjinder Suarez MD Pre Op Diagnosis: O A Both Knees Patient Data Age: 66 Gender: F Height: 1.7 m Weight: 111 kg Last Vital Signs Temp 37.3 C 01/13/22 15:12 Pulse 60 01/13/22 15:12 Resp 18 01/13/22 15:12 BP 126/56 L 01/13/22 15:12 Pulse Ox 97 01/13/22 15:12 O2 Del Method Room Air 01/13/22 15:12 Allergies Allergy/AdvReac Type Severity Reaction Status Date / Time ciprofloxacin [From Cipro] Allergy Difficulty Verified 02/03/22 06:10 Breathing metronidazole [From Flagyl] Allergy Difficulty Verified 02/03/22 06:10 Breathing METALS CARMEN Allergy Mild Rash Uncoded 02/03/22 06:10 Home Medications Medication Instructions Recorded Confirmed Type albuterol 90 mcg/actuation aerosol 90 mcg inhalation BID PRN 09/21/20 01/13/22 History inhaler Shortness Of Breath Or Wheezing diphenhydramine HCl 25 mg tablet 25 mg PO HS PRN Allergy Symptoms 09/21/20 02/03/22 History (Benadryl Allergy) fluoxetine 40 mg capsule (Prozac) 40 mg PO QAM 09/21/20 02/03/22 History fluticasone propionate 230 2 puff inhalation BID 09/21/20 02/03/22 History mcg-salmeterol 21 mcg/actuation HFA inhaler (Advair HFA) omeprazole 20 mg capsule,delayed 20 mg PO QAM 09/21/20 02/03/22 History release dicyclomine 20 mg tablet 10 mg PO QID 10/15/20 02/03/22 History montelukast 10 mg tablet 10 mg PO HS 11/22/20 02/03/22 History acetaminophen 500 mg tablet 500 mg PO Q6H PRN Pain 02/27/21 02/03/22 History fluoxetine 10 mg capsule 10 mg PO HS 01/13/22 02/03/22 History naproxen sodium 220 mg tablet 440 mg PO Q12H PRN Pain 01/13/22 02/03/22 History (Aleve) oxybutynin chloride 15 mg 15 mg PO DAILY 01/13/22 02/03/22 History tablet,extended release 24 hr divalproex 250 mg tablet,delayed 250 mg PO BID 02/03/22 02/03/22 History release Patient hx anesthesia problems: none Family hx anesthesia problems: none Results Review: All pre-operative results and documents have been reviewed as part of the pre-operative evaluation. [facility] Past Medical History Medical History (Updated 02/03/22 @ 06:57 by Ru Gee MD) Anxiety Asthma Bipolar 1 disorder, depressed (Unknown) Bipolar disorder Chronic GERD (Unknown) Colon stricture COPD (chronic obstructive pulmonary disease) Diverticulitis GERD (gastroesophageal reflux disease) Insomnia Obesity (BMI 30-39.9) Stricture of sigmoid colon S/P colon resection Surgical History Surgical History History of cholecystectomy History of hemicolectomy lap left hemicolectomy w/ splenic flexure takedown, possible diverting loop ileostomy 12/03/20 History of hysterectomy Family History Family History Father Skin cancer Colon cancer Myocardial infarct Sibling COPD (chronic obstructive pulmonary disease) Mother COPD (chronic obstructive pulmonary disease) Social History Social History Smoking status: Never smoker Second hand tobacco smoke exposure: No Additional smoking assessment comments: DENIES ANY FORM OF TOBACCO USE Alcohol intake: never Substance use: never Substance use type: does not use Living arrangements: alone Gender identity (if verbalized by the patient): Female Spiritual care concerns: No Anes - Eval Final PreProcedure Day of Procedure 02/03/22 06:53 Patient weight: obese Heart: regular rate and rhythm Lungs: clear to auscultation Airway: Mallampati scale class II Neurological: alert and oriented Last oral intake: >/= 8 hours ASA classification: III Emergent: no Anesthetic plan: proceed Anesthesia type and monitoring: general LMA an
[2022-02-03] MEDS: TRANEXAMIC ACID 1,000MG/ISO100 1,000 MG/100 ML BAG 200 MG IVPB (06:58)
--- NOTE | 2022-02-03 07:15 | WPDHPUPDATE1 ---
History and Physical Update Update Date/Time: 02/03/22 07:15 History and Physical has been reviewed, including an updated exam of the patient. There are NO changes in the patient's condition. Risks, benefits, and alternatives have been discussed and questions answered. Patient agrees to proceed with procedure.
[2022-02-03] MEDS: LACTATED RINGERS 1,000 ML 30 ML IV CONT ×2 (07:16→11:26)
[2022-02-03] MEDS: ceFAZolin 2 GM/D5W 50 ML 2 GM/50 ML BAG IVPB (07:30)
[2022-02-03] MEDS: methylPREDNISolone ACETATE 80 MG/ML VIAL IM (07:47)
[2022-02-03] MEDS: LIDOCAINE HCL 1% PF 30 ML VIAL INFILTRATE (07:47)
[2022-02-03] MEDS: ceFAZolin SODIUM 1 GM VIAL 3 GM (08:21)
[2022-02-03] MEDS: GENTAMICIN BONE CEMENT REFOBACIN 1 EACH TOPICAL (10:06)
[2022-02-03] MEDS: ceFAZolin SODIUM 1 GM VIAL 2 GM IV PUSH (10:29)
[2022-02-03] MEDS: TRANEXAMIC ACID 1,000 MG/10 ML AMPUL 1000 MG IV PUSH (10:30)
[2022-02-03] MEDS: KETOROLAC 15 MG/ML VIAL (*BKC) IV PUSH ×3 (10:49→22:06)
--- NOTE | 2022-02-03 11:20 | W.PM.PROC2 ---
Procedure Note - Detailed Date of Procedure 02/03/22 Pre-op Diagnosis O A Both Knees Post-op Diagnosis Same Procedure Performed Cortisone injection left knee, right total knee arthroplasty for grade 2 valgus lateral compartment osteoarthritis Surgeon Manjinder Suarez MD Prosthetic Makeup Designer Ekta Anesthesia General Description of Procedure Patient was brought to the operating room and general anesthesia was administered. Time-out was carried out. The left knee was prepped with ChloraPrep and 80 mg of Depo-Medrol 3 cc 1% lidocaine were injected from a lateral parapatellar approach without difficulty. She received 2 g of Ancef weight based vancomycin 1 g of tranexamic acid preoperatively and the right knee prepped draped usual fashion. Under anesthesia she had about a 5 or 6 degree flexion contracture. Limb was exsanguinated and tourniquet elevated to 300 mmHg. A 7 in longitudinal midline incision was used and a standard parapatellar arthrotomy utilized. Infrapatellar and suprapatellar fat pads were excised a quadriceps synovectomy carried out. There were large peripheral osteophytes were debrided. Patellar thickness was 21.5 mm. The patella was cut to 15.5 mm and a protector cap applied. A guide bonita was inserted on the intramedullary canal after aspiration of canal contents and using the 5 degree valgus cutting bushing 9 mm of bone removed the distal femur. This removed about 4 laterally. Next the tibial plateau was cut. We tried for a skim cut off the low point of the medial tibial plateau posteriorly. Our initial cut left a little bit of cartilage in the posterior 15 mm of the posteromedial tibial plateau. PCL was recessed meniscal remnants were excised. Flexion gap at 90? was too tight to accept the 8 mm spacer medially. Therefore an additional 2 mm of bone removed the tibial plateau. We confirmed that the cut was perpendicular to the axis of the tibia and flexion gap at 90? measured 8 mm medially and 13 mm laterally. The femoral sizing guide was applied to the femur set at 6? of external rotation which matched [place] line. Posterior referencing pinholes were placed and the femur was cut to the 62.5 vanguard. This gave a flush cut on the anterior cortex but was a little bit wide medial to lateral at this point. We had ample play with the trial with 10 mm CR implant in flexion. We were far too tight in extension. There is no play medially or laterally and the medial side was gapped open a mm. An additional 2 mm of bone removed the distal femur at this time and the tibia was sized to a 67 which fit line to line posterolateral to anteromedial proper rotation. This was punched. On trialing we were still short by about 3? from full extension no play laterally and 2 mm opening medially. Anterior drawer was appropriate with the 10 insert at 90?. [place] flexion was to 130. IT band was pie crusted and posterolateral capsule released from the posteromedial corner of the tibial plateau. With this the knee had just a barely positive bounce no opening laterally on varus stress. An additional 1 mm of bone was removed the distal femur and the femoral trial applied and posterior femoral osteophytes removed and on repeat trialing with a 10 insert the knee came out to just full extension with a negative bounce 1 mm lateral opening 3 mm medial opening appropriate anterior diesel dragline operator all positions. We had put the tourniquet down at 90 minutes and continued working with the tourniquet down and at this time we re-exsanguinated the limb and we elevated the tourniquet. The patella was sized to a 31 thin lug holes were drilled in the femoral component. The bony surfaces were thoroughly irrigated and dried. She had some degree of osteopenia throughout the tibial plateau. This was dense posterior aspects medially laterally as we were just barely under the subchondral bone. Step drill was used to make multiple perforations in the tibial plateau and distal femur.
--- NOTE | 2022-02-03 11:32 | PM.OP ---
Procedure Note - Brief Procedure Note - Brief Date of procedure: 02/03/22 <LUCY Beasley - Last Filed: 02/03/22 11:33> 02/03/22 <Manjinder Suarez MD - Last Filed: 02/03/22 11:35> Pre-op diagnosis: O A Both Knees <LUCY Beasley - Last Filed: 02/03/22 11:33> Bilateral knee DJD <LUCY Beasley - Last Filed: 02/03/22 11:33> Procedure performed: Right total knee arthroplasty <LUCY Beasley - Last Filed: 02/03/22 11:33> Description of procedure: 66-year-old female underwent right total knee arthroplasty on 02/03. I was involved in the procedure including positioning patient on OR table. purchasing assistant through the time of surgery as well as assisting getting the patient to recovery. Total time spent was 4 hours <LUCY Beasley - Last Filed: 02/03/22 11:33> Surgeon: LUCY Beasley <LUCY Beasley - Last Filed: 02/03/22 11:33>
[2022-02-03] MEDS: fentaNYL CITRATE INJ (*CRX) 100 MCG/2 ML VIAL 25 MCG IV PUSH ×6 (11:41→13:16)
--- NOTE | 2022-02-03 13:39 | SUR.PHASEI ---
1230 PT MEETS ANESTHESIA DISCHARGE CRITERIA TO BE DISCHARGED FROM PACU. NO POST OP ROOM AVAILABLE. ON HOLD.
--- NOTE | 2022-02-03 14:13 | SUR.PHASEI ---
RN called Therapy Lead at 1350 and left a message.
[2022-02-03] MEDS: oxyCODONE HCL (*CRX) 5 MG TAB IR PO ×4 (14:23→20:24)
--- NOTE | 2022-02-03 14:35 | SUR.PHASEI ---
1425: PT is at the bedside working with patient.
--- NOTE | 2022-02-03 16:00 | ADMGEN ---
This patient, Melissa Martinez, was admitted to 2 Medical Room 255-01. Patient/family oriented to hospital policies and general routines including ID bracelet, bed and alarms, visiting hours, pain management, procedures, bathroom and other care routines, personal items, smoking policy, room service/diet, and visiting hours. Information on how to activate the Rapid Response Team has been discussed. Patient/Family are encouraged to report perceived risks to care and to ask questions if they do not understand what they are told or what they should do.
[2022-02-03] MEDS: SENNA/DOCUSATE SODIUM TABLET 2 TAB PO (16:47)
[2022-02-03] MEDS: DICYCLOMINE HCL 10 MG CAPSULE PO ×2 (16:47→20:24)
[2022-02-03] MEDS: FLUoxetine HCL 10 MG CAPSULE PO (20:24)
[2022-02-03] MEDS: DIVALPROEX SODIUM DR 250 MG TABEC PO (20:24)
[2022-02-03] MEDS: FAMOTIDINE 20 MG TABLET PO (20:24)
[2022-02-03] MEDS: MONTELUKAST SODIUM 10 MG TABLET PO (20:24)
[2022-02-03] MEDS: FLUTICASONE/SALMETEROL 230-21 MCG INHALER 1 PUFF 2 PUFF INHALATION (20:52)
[2022-02-03] MEDS: ALBUTEROL SULFATE (*SP) AEROSOL 1 PUFF INHALATION (20:53)
[2022-02-04] MEDS: oxyCODONE HCL (*CRX) 5 MG TAB IR PO ×4 (00:05→09:25)
[2022-02-04 01:26] VITALS: BP 110/50; PULSE 83; RESP 18; TEMP 36.7; O2SAT 96
[2022-02-04] MEDS: ACETAMINOPHEN 500 MG TABLET 1000 MG PO ×2 (05:24→10:50)
[2022-02-04 05:26] VITALS: BP 102/50; PULSE 78; RESP 18; TEMP 36.4; O2SAT 93
[2022-02-04 05:30] LABS: Basophils Absolute Auto 0.1 K/mm3 (0.0-0.1); Basophils Percent Auto 0.4 % (0.2-1.2); Hematocrit 33.7 % (37.0-47.0); Immature Granulocyte Percent A 0.6 % (0-0.5); Lymphocytes Absolute Auto 1.39 K/mm3 (0.9-3.2); Mean Corpuscular HGB Conc 32.6 g/dl (32-36); Mean Corpuscular Hemoglobin 29.7 pg (26-34); Mean Corpuscular Volume 91.1 fl (80-100); Mean Platelet Volume 9.9 fl (7.4-10.4); Monocytes Absolute Auto 1.7 K/mm3 (0.1-0.6); Monocytes Percent Auto 9.8 % (2.6-8.5); Neutrophils Absolute Auto 14.1 K/mm3 (1.3-6.7); Neutrophils Percent Auto 81.2 % (45.5-73.1); Platelet Count Result 265 k/mm3 (150-375); White Blood Count 17.4 K/mm3 (4.5-10.0)
[2022-02-04 06:03] LABS: Anion Gap 10 mmol/L (8-16); Blood Urea Nitrogen 25 mg/dL (7-17); Calcium 8.5 mg/dL (8.4-10.2); Carbon Dioxide 26 mmol/L (22-30); Chloride 99 mmol/L (98-107); Estimated CRCL calculation 77 ml/min; Estimated Glomerular Filt Rate > 60; Glucose 137 mg/dL (65-110); Potassium 3.9 mmol/L (3.4-5.0); Sodium 135 mmol/L (137-145)
--- NOTE | 2022-02-04 06:24 | PM.PNORT ---
Subjective Subjective Date/Time Seen: 02/04/22 06:24 Postop day 1 patient is alert. Afebrile vital signs are stable. Morning labs are noted. Patient's pain is very well controlled. Dressing is dry. Minimal swelling at the knee. Patient was up walking with therapy yesterday and up to the restroom multiple times overnight and doing well. We will plan to have patient work with therapy this morning and plan on discharging her home later today. Objective Data Vital Signs Vital Signs: Vital Signs - 24 hr 02/03/22 07:13 02/03/22 11:26 02/03/22 11:40 Temperature 36.8 C 36.4 C Pulse Rate 71 98 79 Respiratory Rate 16 12 15 Blood Pressure 146/76 H 141/68 H 129/52 L Pulse Oximetry 98 98 97 Oxygen Delivery Room Air Simple Face Mask Simple Face Mask Oxygen Flow Rate 10 10 02/03/22 11:56 02/03/22 12:10 02/03/22 12:25 Temperature Pulse Rate 80 76 78 Respiratory Rate 16 16 16 Blood Pressure 129/55 L 139/66 127/67 Pulse Oximetry 93 96 95 Oxygen Delivery Room Air Nasal Cannula Nasal Cannula Oxygen Flow Rate 2 2 02/03/22 12:40 02/03/22 13:10 02/03/22 13:30 Temperature 36.7 C Pulse Rate 81 77 82 Respiratory Rate 16 18 16 Blood Pressure 121/70 122/67 112/60 Pulse Oximetry 95 100 98 Oxygen Delivery Nasal Cannula Nasal Cannula Nasal Cannula Oxygen Flow Rate 2 2 2 02/03/22 14:00 02/03/22 14:30 02/03/22 15:00 Temperature Pulse Rate 82 100 78 Respiratory Rate 18 Blood Pressure 129/70 141/94 H 102/76 Pulse Oximetry 95 Oxygen Delivery Nasal Cannula Nasal Cannula Room Air Oxygen Flow Rate 2 2 02/03/22 14:22 02/03/22 15:50 02/03/22 16:15 Temperature 36.8 C 36.8 C Pulse Rate 72 91 Respiratory Rate 18 20 Blood Pressure 134/56 L 119/72 Pulse Oximetry 97 92 Oxygen Delivery Room Air Oxygen Flow Rate 02/03/22 17:26 02/03/22 21:26 02/04/22 01:26 Temperature 36.8 C 36.4 C L 36.7 C Pulse Rate 77 78 83 Respiratory Rate 18 18 18 Blood Pressure 114/57 L 123/62 110/50 L Pulse Oximetry 94 95 96 Oxygen Delivery Oxygen Flow Rate Intake/Output Intake/Output: Intake & Output 02/01/22 02/02/22 02/03/22 02/04/22 23:59 23:59 23:59 23:59 Intake Total 1390 50 Balance 1390 50 Meds/Results Medications: Active Medications Generic Name Dose Route Start Last Admin Trade Name Freq PRN Reason Stop Dose Admin Acetaminophen 1,000 mg 02/03/22 17:00 02/04/22 05:24 Acetaminophen 500 Mg Tablet PO 1,000 mg Q6H ROBERT Administration Albuterol 1 puff 02/03/22 16:00 02/03/22 20:53 Albuterol Sulfate (*Sp) Aerosol 1 Puff INHALATION 1 puff BID PRN Administration Shortness Of Breath Or Wheezing Apixaban 2.5 mg 02/04/22 09:00 Apixaban 2.5 Mg Tablet PO 02/15/22 21:01 Q12HR ROBERT Celecoxib 200 mg 02/04/22 08:00 Celecoxib 200 Mg Capsule PO DAILY@0800 ROBERT Dicyclomine HCl 10 mg 02/03/22 16:00 02/03/22 20:24 Dicyclomine Hcl 10 Mg Capsule PO 10 mg QID ROBERT Administration Diphenhydramine HCl 25 mg 02/03/22 15:41 Diphenhydramine Hcl Inj 50 Mg/Ml Vial IV PUSH Q6H PRN Itching Divalproex Sodium 250 mg 02/03/22 21:00 02/03/22 20:[address] 250 Mg Tabec PO 250 mg Q12HR ROBERT Administration Doxycycline Hyclate 100 mg 02/04/22 09:00 Doxycycline Hyclate 100 Mg Tablet PO Q12HR ROBERT Famotidine 20 mg 02/03/22 21:00 02/03/22 20:24 Famotidine 20 Mg Tablet PO 20 mg Q12HR ROBERT Administration Fluoxetine HCl 10 mg 02/03/22 21:00 02/03/22 20:24 Fluoxetine Hcl 10 Mg Capsule PO 10 mg HS ROBERT Administration Fluoxetine HCl 40 mg 02/04/22 09:00 Fluoxetine Hcl 20 Mg Capsule PO QAM ROBERT Vancomycin HCl 1,000 mg in 250 mls @ 250 mls/hr 02/03/22 19:00 02/04/22 06:00 Vancomycin 1,000 Mg/D5w 250 Ml IVPB 02/04/22 07:59 250 mls/hr Q12H ROBERT Administration Cefazolin Sodium 1 gm in 50 mls @ 100 mls/hr 02/03/22 16:00 02/04/22 00:35 Ancef 1 Gm/D5w 50 Ml Pm IVPB 02/04/22 08:29
--- NOTE | 2022-02-04 06:29 | PM.DS ---
DS: Admitting Diagnosis Discharge Date 02/04 Admitting Diagnosis Bilateral knee DJD DS: Discharge Diagnosis Discharge Diagnosis (1) Total knee replacement status: Code(s): Z96.659 - Presence of unspecified artificial knee joint Status: Acute DS: Summary Hospital Course Hospital Course: 66-year-old female underwent right total knee arthroplasty on 02/03. Underwent the procedure without complications. Postoperatively she has been afebrile vital signs have been stable. She is weight-bearing as tolerated. She is on Eliquis for DVT prophylaxis. She is on scheduled Tylenol as well as oxycodone 5 mg and Celebrex 200 mg once a day for pain control. She was up walking the day of surgery with therapy and is comfortable. Pain is very well controlled. She was on multiple times to the restroom overnight as well. Patient's knee has mild swelling mild ecchymosis. Dressing is dry. She is able to straight leg raise postop day 1. Patient will be discharged on 02/04. She was advised to keep the leg elevated home prevent swelling but do her exercises of bending and straightening the knee every hour while awake. She was advised that sit in the chair for extended periods of time which could cause swelling in the knee and leg. She has outpatient therapy starting in 2 days. Patient will also go home on Senokot and MiraLax for constipation as well as a 2 week course of doxycycline 100 mg b.i.d.. Patient was advised any questions or concerns she is to call the office otherwise we will see her at her appointment dates Time Spent with Patient Time attestation: Total time spent providing and/or coordinating discharge services: DS: Data Data Completed and Pending Labs on day of discharge: Labs from last 24 hours 02/04/22 02/04/22 02/03/22 04:45 04:45 06:45 WBC 17.4 H RBC 3.70 L Hgb 11.0 L D Hct 33.7 L MCV 91.1 MCH 29.7 MCHC 32.6 RDW 13.0 Plt Count 265 MPV 9.9 Immature Gran % (Auto) 0.6 H Neut % (Auto) 81.2 H Lymph % (Auto) 8.0 L [place] % (Auto) 9.8 H Eos % (Auto) 0.0 Baso % (Auto) 0.4 Lymph # (Auto) 1.39 [place] # (Auto) 1.7 H Eos # (Auto) 0.0 Baso # (Auto) 0.1 Abs Immat Gran (auto) 0.10 H Absolute Neuts (auto) 14.1 H Absolute Nucleated RBC 0.0 Nucleated RBC % 0.0 Sodium 135 L Potassium 3.9 Chloride 99 Carbon Dioxide 26 Anion Gap 10 BUN 25 H Creatinine 0.80 Estim Creat Clear Calc 77 Estimated GFR > 60 Glucose 137 H Calcium 8.5 Blood Type O Positive Antibody Screen Negative Discharge Plan Discharge Patient Disposition: Home, Self-Care Discharge Instructions: BRITTANY RAMIREZ M.D [facility], [place] [id number] [place] [address] POST-OPERATIVE DISCHARGE INSTRUCTIONS TOTAL KNEE ARTHROPLASTY 1. When resting, lie on back with leg elevated above heart to minimize swelling. Significant swelling could indicate a blood clot and if this occurs call the office (or go to the ER) to have a venous ultrasound. 2. Do exercise 5 times a day. 3. Do not sit with leg down except for meals. 4. Wound Care: Nursing will give additional dressings at discharge. Patient to change dressing at home 1 week from surgery, then maintain until seen in office. 5. May shower with dressing in place. 6. Follow weight bearing status instructions. IMPORTANT: Remember not to sit in the chair for more than 30 minutes at a time. As a rule, during the first 14 days after surgery, only sit in the chair to work on the chair knee bending stretch exercise, for meals or for use of the restroom. Sitting in the chair promotes significant swelling in the knee and leg which will make the knee stiff and more painful and which simulates having a blood clot in the veins of the leg. If this type of significant diffuse swelling occurs, an ultrasound at the hospital will be necessa
[2022-02-04] MEDS: FLUTICASONE/SALMETEROL 230-21 MCG INHALER 1 PUFF 2 PUFF INHALATION (09:08)
[2022-02-04] MEDS: CELECOXIB 200 MG CAPSULE PO (10:08)
[2022-02-04] MEDS: DICYCLOMINE HCL 10 MG CAPSULE PO (10:09)
[2022-02-04] MEDS: APIXABAN 2.5 MG TABLET PO (10:09)
[2022-02-04] MEDS: DIVALPROEX SODIUM DR 250 MG TABEC PO (10:10)
[2022-02-04] MEDS: FAMOTIDINE 20 MG TABLET PO (10:11)
[2022-02-04] MEDS: FLUoxetine HCL 20 MG CAPSULE 40 MG PO (10:11)
[2022-02-04] MEDS: DOXYCYCLINE HYCLATE 100 MG TABLET PO (10:11)
[2022-02-04 10:43] VITALS: BP 109/65; PULSE 76; RESP 16; TEMP 36.8; O2SAT 97
--- NOTE | 2022-02-04 11:28 | PC.NURSE ---
Positive PT pulses, skin warm, dry, capillary refill less than seconds, moderate amount of swelling noted to right knee with bruising noted to lateral aspect of right knee. No sign of infection noted over incision site, dressing in place, dry and intact, no bleeding or drainage noted. Dressing given to pt to change at home 7 days after surgery. Pt up to restroom and back with walker, tolerated well, pt abx infused, PO medications given, pt taken out of hospital to ride via wheelchair, discharge instructions reviewed, questions answered.
--- NOTE | 2022-02-04 11:46 | PM.IMCN ---
Assessment and Plan Assessment and plan (1) Total knee replacement status: Code(s): Z96.659 - Presence of unspecified artificial knee joint Status: Acute Assessment and Plan: underwent right total knee arthroplasty on 02/03/[address] Suarez. tolerated the procedure well. Patient is participating in therapy. Management per Orthopedic surgery. (2) COPD (chronic obstructive pulmonary disease): Code(s): J44.9 - Chronic obstructive pulmonary disease, unspecified Status: Chronic Assessment and Plan: Not in acute exacerbation. Continue home Advair b.i.d. and rescue inhaler as needed (3) Chronic GERD: Onset Date: Unknown Code(s): K21.9 - Gastro-esophageal reflux disease without esophagitis Status: Chronic Assessment and Plan: no issues. Continue omeprazole (4) Bipolar 1 disorder, depressed: Onset Date: Unknown Code(s): F31.9 - Bipolar disorder, unspecified Status: Chronic Assessment and Plan: mood is stable. Continue fluoxetine and Depakote HPI Data of Consult Consult date: 02/04/22 Requesting Physician: Manjinder Suarez MD Primary Care Provider: Ramon Shell, DO Consult Narrative Narrative: date of service: 02/04/2022 Melissa Martinez is a 66 year old female with a history of asthma, bipolar disorder, COPD, GERD, diverticulitis and sigmoid colon stricture s/p hemicolectomy with ileostomy and subsequent reversal, and osteoarthritis who is now s/p right total knee arthroplasty And is being seen in consultation for medical management. The patient is doing well. She tolerated her procedure well. She has been participating in therapy. She does have some right knee pain, especially with movement which she rates up to 8.5/10. She denies any postoperative nausea or vomiting. No shortness of breath or chest pain. No issues with urinating. Last bowel movement was 2 days ago. She denies dizziness or lightheadedness. She plans to return home to recover and has plans to have a friend stay with her for several days to help her out as needed. She is already scheduled for outpatient physical therapy in 2 days. She has a ramp to enter her home. Review of Systems Review of Systems: All systems reviewed & are unremarkable except as noted in HPI and below PMFSH Past Medical History Medical History Anxiety Asthma Bipolar 1 disorder, depressed (Unknown) Bipolar disorder Chronic GERD (Unknown) Colon stricture COPD (chronic obstructive pulmonary disease) Diverticulitis GERD (gastroesophageal reflux disease) Insomnia Obesity (BMI 30-39.9) Stricture of sigmoid colon S/P colon resection Surgical History Surgical History History of cholecystectomy History of hemicolectomy lap left hemicolectomy w/ splenic flexure takedown, possible diverting loop ileostomy 12/03/20 History of hysterectomy Family History Family History Father Skin cancer Colon cancer Myocardial infarct Sibling COPD (chronic obstructive pulmonary disease) Mother COPD (chronic obstructive pulmonary disease) Social History Social History (Updated 02/04/22 @ 11:51 by Yolanda Mccray PA-C) Smoking status: Never smoker Second hand tobacco smoke exposure: No Alcohol intake: never Substance use: never Substance use type: does not use Lack of Transportation: No Lack of Food: Never True Current Housing: I Have Housing Concerned About Future Housing: No Difficulty Paying Gas/Electric Bills: No Difficulty Paying for Meds: No Currently Unemployed: No Education: Associate Degree Difficulty w/ Childcare or Family Care: No Gender identity (if verbalized by the patient): Female Spiritual care concerns: No Meds Home Medicatio
== END 2022-02-04 11:37 | disposition home or self-care (01) ==
LOC: ANHSURGERY 06:25 → ANH2MED 15:44 → ANHCPC 02-04 09:59
PROVIDERS: Physician Assistant Surgical; PCP Student in an Organized Health Care Education/Training Program; Visit Provider Orthopaedic Surgery
PROC: (CPT 27447; principal; 2022-02-03 07:30)
DX: M17.0 Bilateral primary osteoarthritis of knee (principal); J45.909 Unspecified asthma, uncomplicated; F31.9 Bipolar disorder, unspecified; K21.9 Gastro-esophageal reflux disease without esophagitis; F41.9 Anxiety disorder, unspecified; J44.9 Chronic obstructive pulmonary disease, unspecified; E66.9 Obesity, unspecified; Z68.38 Body mass index [BMI] 38.0-38.9, adult; Z90.49 Acquired absence of other specified parts of digestive tract; Z79.51 Long term (current) use of inhaled steroids
CPT/HCPCS: 27447; 20610; 36415; 71046; 73560; 80048; 80053; 80164; 80307; 83036; 83540; 83550; 85025; 86850; 86900; 86901; 87147; 93005; 94640; 97110; 97116; 97161; 97165; 97530; 97535; A9270; C1713; C1776; J0171; J0690; J1030; J1040; J1100; J1885; J2250; J2270; J2405; J2704; J2710; J2795; J3010; J3370; J7120

== ENCOUNTER 2022-08-04 00:31 | Day surgery (SDC) | payer OTHER, MEDICAID, SELFPAY ==
[2022-07-28 13:33] VITALS: BMI 37.3
--- NOTE | 2022-08-04 07:34 | WPDANESEPPF ---
Anes - Initial Pre Proc Eval Procedure: Operation Date: 08/04/22 10:45 Proposed Procedures p Colonoscopy - Moy Diaz MD Date/Time: 08/04/22 07:34 Surgeon: Moy Diaz MD Pre Op Diagnosis: diarrhea Patient Data Age: 67 Gender: F Height: 1.7 m Weight: 108 kg Allergies Allergy/AdvReac Type Severity Reaction Status Date / Time ciprofloxacin [From Cipro] Allergy Difficulty Verified 08/04/22 09:36 Breathing metronidazole [From Flagyl] Allergy Difficulty Verified 08/04/22 09:36 Breathing METALS CARMEN Allergy Mild Rash Uncoded 08/04/22 09:36 Home Medications Medication Instructions Recorded Confirmed Type albuterol 90 mcg/actuation aerosol 90 mcg inhalation BID PRN 09/21/20 07/28/22 History inhaler Shortness Of Breath Or Wheezing diphenhydramine HCl 25 mg tablet 25 mg PO HS PRN Allergy Symptoms 09/21/20 07/28/22 History (Benadryl Allergy) fluoxetine 40 mg capsule (Prozac) 40 mg PO QAM 09/21/20 07/28/22 History fluticasone propionate 230 2 puff inhalation BID 09/21/20 07/28/22 History mcg-salmeterol 21 mcg/actuation HFA inhaler (Advair HFA) omeprazole 20 mg capsule,delayed 20 mg PO QAM 09/21/20 07/28/22 History release dicyclomine 20 mg tablet 10 mg PO QID 10/15/20 07/28/22 History montelukast 10 mg tablet 10 mg PO HS 11/22/20 07/28/22 History acetaminophen 500 mg tablet 500 mg PO Q6H PRN Pain 02/27/21 07/28/22 History fluoxetine 10 mg capsule 10 mg PO HS 01/13/22 07/28/22 History oxybutynin chloride 15 mg 15 mg PO DAILY 01/13/22 07/28/22 History tablet,extended release 24 hr divalproex 250 mg tablet,delayed 250 mg PO BID 02/03/22 07/28/22 History release celecoxib 200 mg capsule (Celebrex) 200 mg PO DAILY@0800 #60 caps 02/04/22 07/28/22 Rx doxycycline hyclate 100 mg tablet 100 mg PO Q12HR #28 tabs 02/04/22 07/28/22 Rx diazepam 2 mg tablet 2 mg PO QHS PRN Anxiety 07/09/22 07/28/22 History lisdexamfetamine 50 mg capsule 50 mg PO DAILY 07/09/22 07/28/22 History (Vyvanse) zolpidem 12.5 mg tablet,extended 12.5 mg PO DAILY 07/09/22 07/28/22 History release,multiphase sodium,potassium,mag sulfates 17.5 See Rx Instructions PO .COMPLEX 07/23/22 07/28/22 Rx gram-3.13 gram-1.6 gram oral soln #354 mL (Suprep Bowel Prep Kit) Patient hx anesthesia problems: none Family hx anesthesia problems: none Results Review: All pre-operative results and documents have been reviewed as part of the pre-operative evaluation. [facility] Past Medical History Medical History Anxiety Asthma Bipolar 1 disorder, depressed (Unknown) Bipolar disorder Chronic GERD (Unknown) Colon stricture COPD (chronic obstructive pulmonary disease) Diverticulitis GERD (gastroesophageal reflux disease) Insomnia Obesity (BMI 30-39.9) Stricture of sigmoid colon S/P colon resection Surgical History Surgical History History of cholecystectomy History of hemicolectomy lap left hemicolectomy w/ splenic flexure takedown, possible diverting loop ileostomy 12/03/20 History of hysterectomy Family History Family History Father Skin cancer Colon cancer Myocardial infarct Sibling COPD (chronic obstructive pulmonary disease) Mother COPD (chronic obstructive pulmonary disease) Social History Social History Smoking status: Never smoker Second hand tobacco smoke exposure: No Alcohol intake: never Substance use: never Substance use type: does not use Lack of Transportation: No Lack of Food: Never True Current Housing: I Have Housing Concerned About Future Housing: No Difficulty Paying Gas/Electric Bills: No Difficulty Paying for Meds: No Currently Unemployed: No Education: Associate Degree Difficulty w/ Childcare or Family Care:
[2022-08-04 09:37] VITALS: BP 149/83; PULSE 71; RESP 18; TEMP 36.1; O2SAT 97
[2022-08-04] MEDS: LACTATED RINGERS 1,000 ML 150 ML IV CONT (09:51)
[2022-08-04] MEDS: AMPICILLIN 2 GM/NS 100 ML 2 GM/100 ML BAG IVPB (09:54)
--- NOTE | 2022-08-04 10:02 | WPDHPUPDATE1 ---
History and Physical Update Update Date/Time: 08/04/22 10:02 Lab test ordered in office 1 month ago not yet accomplished. Patient states diarrhea is ongoing but tolerable at present. History and Physical has been reviewed, including an updated exam of the patient. There are NO changes in the patient's condition. Risks, benefits, and alternatives have been discussed and questions answered. Patient agrees to proceed with procedure.
[2022-08-04 11:08] VITALS: BP 92/47; PULSE 61; RESP 21; O2SAT 96
[2022-08-04 11:18] VITALS: BP 100/51; PULSE 65; RESP 23; O2SAT 96
[2022-08-04 11:28] VITALS: BP 113/64; PULSE 62; RESP 18; O2SAT 97
== END 2022-08-04 11:45 | disposition home or self-care (01) ==
PROVIDERS: PCP Student in an Organized Health Care Education/Training Program; Visit Provider Internal Medicine Gastroenterology
PROC: 0DJD8ZZ Inspection of Lower Intestinal Tract, Via Natural or Artificial Opening Endoscopic (ICD-10-PCS; CPT 45378; principal; 2022-08-04 10:45)
DX: Z12.11 Encounter for screening for malignant neoplasm of colon (principal); R19.7 Diarrhea, unspecified; D12.5 Benign neoplasm of sigmoid colon; K64.8 Other hemorrhoids; K57.30 Diverticulosis of large intestine without perforation or abscess without bleeding; Z98.0 Intestinal bypass and anastomosis status; Z90.49 Acquired absence of other specified parts of digestive tract; Z87.19 Personal history of other diseases of the digestive system; F31.9 Bipolar disorder, unspecified; F41.9 Anxiety disorder, unspecified; K21.9 Gastro-esophageal reflux disease without esophagitis; J44.9 Chronic obstructive pulmonary disease, unspecified; E66.9 Obesity, unspecified; Z68.36 Body mass index [BMI] 36.0-36.9, adult; Z79.51 Long term (current) use of inhaled steroids
CPT/HCPCS: 45380; 88305; J0290; J2704; J7120

== ENCOUNTER 2022-08-27 10:32 | Outpatient (CLI) | payer OTHER, MEDICAID, SELFPAY ==
--- NOTE | ~2022-08-27 | XR_ITS ---
EXAMINATION: XR small bowel follow through DATE: 08/27/2022 12:40 INDICATION: Chronic diarrhea. TECHNIQUE: Oral contrast was administered, and a time course of radiographs of the abdomen was obtain ed. Fluoroscopy of the small bowel was performed. Fluoroscopy exposure time was 0.2 minutes. The tota l number of images was 14. COMPARISON: CT abdomen and pelvis 09/21/2020 FINDINGS: Surgical clips in the right upper quadrant are likely from cholecystectomy. There are no dilated loop s of bowel. There is no abnormal mass or stricture. The terminal ileum is normal. Transit time from t he stomach to proximal colon was approximately 1.5 hours. IMPRESSION: 1. Normal small bowel series. Reviewed, dictated and finalized at location A.
== END 2022-08-27 10:33 | disposition home or self-care (01) ==
PROVIDERS: PCP Student in an Organized Health Care Education/Training Program; Visit Provider Nurse Practitioner Family
DX: R19.7 Diarrhea, unspecified (principal)
CPT/HCPCS: 74250

== ENCOUNTER 2022-11-04 11:09 | Outpatient (CLI) | payer OTHER, MEDICAID, SELFPAY ==
--- NOTE | ~2022-11-04 | XR_ITS ---
Right wrist Technique: PA, oblique, lateral, and ulnar deviation views were obtained. Clinical History: Pain Findings: Transverse fracture through the proximal portion of the fifth proximal phalanx noted. Obliq ue, nondisplaced fracture of the fourth proximal phalangeal shaft noted. No fracture or dislocation i n the wrist itself.. Joint spaces are preserved. Soft tissues are unremarkable. Impression: Fractures of the fourth and fifth proximal phalanges, as noted above. Please see separately reported hand radiographic series for further details. No fracture or dislocation in the wrist itself. Reviewed, dictated and finalized at location M. Impression: Fractures of the fourth and fifth proximal phalanges, as noted above. Please se e separately reported hand radiographic series for further details. No fracture or dislocation in the wrist itself.
--- NOTE | ~2022-11-04 | XR_ITS ---
Right Hand Technique: PA, oblique, and lateral views were obtained. Clinical History: Pain Findings: There is a transverse, minimally displaced fracture through the base of the fifth proximal phalanx. There is an oblique, nondisplaced fracture of the fourth proximal phalangeal shaft. There ar e mild scattered degenerative changes in the distal and proximal interphalangeal joints of the second through fifth digits. Moderate degenerative change noted at the first CMC joint. Soft tissues are un remarkable. Impression: Transverse, minimally displaced/impacted fracture through the proximal most portion of the fifth prox imal phalanx. No definite intra-articular extension. Probable element of dorsal angulation at the fra cture site. Oblique, nondisplaced fracture of the fourth proximal phalangeal shaft. Scattered mild degenerative changes, as above. Reviewed, dictated and finalized at [facility]. Impression: Transverse, minimally displaced/impacted fracture through the proximal most por tion of the fifth proximal phalanx. No definite intra-articular extension. Prob able element of dorsal angulation at the fracture site. Oblique, nondisplaced fracture of the fourth proximal phalangeal shaft. Scattered mild degenerative changes, as above.
== END 2022-11-04 11:10 | disposition home or self-care (01) ==
PROVIDERS: PCP Student in an Organized Health Care Education/Training Program; Visit Provider Student in an Organized Health Care Education/Training Program
DX: S62.644A Nondisplaced fracture of proximal phalanx of right ring finger, initial encounter for closed fracture (principal); X58.XXXA Exposure to other specified factors, initial encounter
CPT/HCPCS: 73110; 73130

== ENCOUNTER 2023-04-08 15:11 | Outpatient (CLI) | payer OTHER, MEDICAID, SELFPAY ==
--- NOTE | ~2023-04-08 | MM_ITS ---
EXAMINATION: MM screening eddie BI w mer HISTORY: Screening mammogram TECHNIQUE: Craniocaudal and mediolateral oblique 3-D tomosynthesis images were obtained and synthetic 2-D images were generated. CAD analysis was submitted and interpreted. COMPARISON: 08/27/2021, 01/12/2017 bilateral screening mammogram examinations BREAST PARENCHYMAL COMPOSITION: The breasts are heterogeneously dense, which may obscure small masses . FINDINGS: Stable mild fibroglandular asymmetry. Scattered bilateral benign calcifications. There is n o evidence of suspicious mass, calcification, or architectural distortion to suggest malignancy in ei ther breast. There has been no suspicious interval change. IMPRESSION: 1. No mammographic evidence of malignancy. 2. Recommend routine screening mammography in one year. BI-RADS Category 2: Benign finding(s). Reviewed, dictated and finalized at location B. AL TRAM OPERATOR
--- NOTE | ~2023-04-08 | US_ITS ---
EXAMINATION: US soft tissue head and neck DATE: 04/08/2023 16:22 INDICATION: Adenopathy TECHNIQUE: Multiple grayscale and Doppler ultrasound images of the region of concern at the left and right sides of the neck were obtained. COMPARISON: None FINDINGS: There are a few normal sized normal-appearing ovoid hypoechoic lymph nodes with central echogenic fat ty rafael measuring up to 7-8 mm in maximal short axis diameter which remains within normal limits. No pathologically enlarged, abnormally shaped lymph nodes or other abnormal masses or fluid collections identified. IMPRESSION: 1. A few mildly prominent but still normal-sized and appearing bilateral cervical lymph nodes. Reviewed, dictated and finalized at location A. S DEPOSITION TENDER IMPRESSION: 1. A few mildly prominent but still normal-sized and appearing bilateral cervic al lymph nodes.
== END 2023-04-08 15:12 | disposition home or self-care (01) ==
PROVIDERS: PCP Student in an Organized Health Care Education/Training Program; Visit Provider Student in an Organized Health Care Education/Training Program
DX: Z12.31 Encounter for screening mammogram for malignant neoplasm of breast (principal); R59.0 Localized enlarged lymph nodes
CPT/HCPCS: 76536; 77063; 77067

== ENCOUNTER 2024-07-13 11:15 | Outpatient (RCR) | payer MEDICARE, MEDICAID, SELFPAY ==
--- NOTE | 2024-06-15 13:29 | OPREHPOC ---
Outpatient Therapy Plan of Care This is a Multidisciplinary Plan of Care that may contain components documented by all disciplines (PT, OT, and ST.) PT Problem 1 PT Problem #1 Knowledge Deficit PT Goal 1 Goal / Goal Update *independent with HEP Target Visit 8 PT Problem 2 PT Problem #2 Impaired Strength PT Goal 1 Goal / Goal Update *increase bilateral LE and trunk strength to gross 4+/5 improve mobility and balance Target Visit 8 PT Problem 3 PT Problem #3 Impaired Functional Mobility PT Goal 1 Goal / Goal Update 1* sit/stand without use of UE from 18 seat x 5 reps 2* 5 reps sit/stand time of 16 seconds 3* 2 minute walking test distance of 300' with cane 4* up/down 12 steps with one hand railing, independent 5* Tinetti balance/gait score of 24/28, to improve balance and decrease risk for falls 6* pt report NO falls Target Visit 8
--- NOTE | 2024-06-15 13:29 | PTOPEVAL1 ---
Assessment and note entered by Sophy Li, PT Evaluation Information Assessment Status Evaluation ICD-10 Condition Codes (PT) Repeated falls R29.6,Abnormalities of gait and mobility R26.9,Weakness R53.1 Other ICD-10 Condition Codes ( G62.9 peripheral neuropathy; essential tremors- PT) [id number] Onset January 2024 Subjective Information started having falls, had about 6 falls; at first, had to call rf microwave engineer to get her off floor, now can get up off the floor herself; standing and just feel like rug pulled out from under me and fall; do not know what I am doing and hit the ground; psychiatrist has been changing her meds--not sure if that is causing some troubles; with the falls, hurt her R wrist- had immobilizer and R rib fracture, which still gives her pain does not want to go out in public due to falling and not walking well; have been staying home more activity: use cane when going out of the house, in home--can touch furniture if need to and use rollator with seat to carry things from room/ room; caregiver 2x/week- do laundry in basement, clean house, vaccum; she does not go into her basement; problems picking things up off the floor- topple over; do drive and can shop using grocery cart; GOAL: walk and move around better; Reported Pain Level Pain Score 0: Self Report Assessment PT Clinical Summary Melissa Green has the diagnosis of decreased gait, LE neuropathy and tremors, with falls. She uses a cane or rollator for mobility and has not been into her basement due to falls. She has a caregiver 2x/wk for assistance with home tasks. LE functional scale self rating of 84% limitation in activity level. Reports she is not going into her basement or going out very often due to falls and fear of falling when out. With the evaluation:use of cane for walking, 2 minute walking test distance of 210' with increase HR 100 and SOB, oxygen stat 98%; 5 reps sit/stand with use of 1 UE in 20 seconds and wide base of support; Tinetti balance score of 18/28= high risk for falls; decrease strength of bilateral hips and trunk. Skilled PT services are indicated to increase LE strength, gait and balance skills, to decrease risk for falls, with education for HEP. Plan of Care Interventions Gait Training,Neuro Re-education,Patient/Caregiver Education,Therapeutic Activities,Therapeutic Exercise PT Services Indicated Yes Treatment Frequency and 1x/wk x 8 visits-- pt request 1x/wk only Duration These treatments will address the objective and functional deficits as defined above. The patient will be advanced safely and appropriately in order for the patient to progress towards his/her prior level of function. Additional exercises will be introduced and as well as a comprehensive home exercise program upon discharge, if needed, ?to ensure carryover of functional gains achieved in the clinic. This treatment plan has been reviewed and agreement upon by the patient.
--- NOTE | 2024-07-06 12:54 | PCPTNOTE ---
No call no show, reason unknown. AKMarlo
--- NOTE | 2024-07-27 13:05 | PCPTNOTE ---
No show no call, reason unknown. SIMIN
--- NOTE | 2024-08-03 14:24 | PCPTNOTE ---
pt did not show for today's reeval appt. called and her voice mail box was full, unable to leave message.
--- NOTE | 2024-08-08 15:11 | OPREHPOC ---
Outpatient Therapy Plan of Care This is a Multidisciplinary Plan of Care that may contain components documented by all disciplines (PT, OT, and ST.) PT Problem 1 PT Problem #1 Knowledge Deficit PT Goal 1 Goal / Goal Update *independent with HEP 08-08-24 d/c pt stopped attending goals were not addressed Target Visit 8 PT Problem 2 PT Problem #2 Impaired Strength PT Goal 1 Goal / Goal Update *increase bilateral LE and trunk strength to gross 4+/5 improve mobility and balance 08-08-24 d/c pt stopped attending goals were not addressed Target Visit 8 PT Problem 3 PT Problem #3 Impaired Functional Mobility PT Goal 1 Goal / Goal Update 1* sit/stand without use of UE from 18 seat x 5 reps 2* 5 reps sit/stand time of 16 seconds 3* 2 minute walking test distance of 300' with cane 4* up/down 12 steps with one hand railing, independent 5* Tinetti balance/gait score of 24/28, to improve balance and decrease risk for falls 08-08-24 d/c pt stopped attending goals were not addressed 6* pt report NO falls Target Visit 8
--- NOTE | 2024-08-08 15:11 | PTOPDC ---
Assessment and note entered by Sophy Li, PT Assessment Status Discharge - Pt Not Present ICD-10 Condition Codes (PT) Repeated falls R29.6,Abnormalities of gait and mobility R26.9,Weakness R53.1 Other ICD-10 Condition Codes ( G62.9 peripheral neuropathy; essential tremors- PT) [id number] Onset January 2024 Subjective Information pt was not seen this date. Assessment PT Clinical Summary Melissa Green has received 3 PT sessions, from June 15 to July 13. She did not show for 3 appointments. Discharge PT due to not attending therapy. The goals were not addressed. Plan of Care PT Services Indicated No
== END 2024-08-08 17:29 | disposition home or self-care (01) ==
LOC: ANHPT 11:15
PROVIDERS: PCP Student in an Organized Health Care Education/Training Program; Visit Provider Student in an Organized Health Care Education/Training Program
DX: R26.9 Unspecified abnormalities of gait and mobility (principal); G25.0 Essential tremor; G62.9 Polyneuropathy, unspecified
CPT/HCPCS: 97110; 97161; 97530

== ENCOUNTER 2024-12-22 11:03 | Outpatient (CLI) | payer MEDICARE, MEDICAID, SELFPAY ==
--- OUTSIDE RECORDS SUMMARY | 2024-12-22 12:15 | XMS_ITS | Clinical Summary ---
Author Organization [facility] [address] [place] [id number] Care Team Providers Care Dinkey Operator Name Role Phone Ramon Shell Primary Care Provide r Allergies No known active allergies Medications divalproex DR (Depakote) 250 mg EC tablet Take 1 tablet (250 mg total) by mouth 3 (three) times a day 90 tablet 2 09/08/19 24 Active diazePAM (VALIUM) 2 mg tabletIndications :Panic Disorder,anxiety Take 1 tablet (2 mg total) by mouth daily as needed for anxiety 30 tablet 2 09/08/19 24 Active suvorexant (BELSOMRA) 10 mg tabletIndications :Insomnia Take 1 tablet (10 mg total) by mouth nightly as needed (insomnia) 30 tablet 2 03/08/19 25 Active lisdexamfetamine (Vyvanse) 50 mg capsuleIndication s:Attention-Defic it Hyperactivity Disorder Take 1 capsule (50 mg total) by mouth every morning 30 capsule 05/10/19 25 Active busPIRone (BUSPAR) 7.5 mg tablet Take 1 tablet (7.5 mg total) by mouth 2 (two) times a day 180 tablet 1 06/09/19 25 Active lisdexamfetamine (Vyvanse) 50 mg capsuleIndication s:Attention-Defic it Hyperactivity Disorder Take 1 capsule (50 mg total) by mouth every morning 30 capsule 07/19/19 25 Active zolpidem (AMBIEN) 10 mg tabletIndications :Sleep-Onset Insomnia Take 1 tablet (10 mg total) by mouth nightly as needed for sleep (Sleep induction) 30 tablet 2 06/21/19 25 Active lisdexamfetamine (Vyvanse) 50 mg capsuleIndication s:Attention-Defic it Hyperactivity Disorder Take 1 capsule (50 mg total) by mouth every morning 30 capsule 07/20/19 25 Active melatonin tabletIndications :Sleep maintenance Take 1 tablet (3 mg total) by mouth nightly as needed for sleep 90 tablet 2 07/20/[address] (DEPAKOTE) 250 mg EC tabletIndications :Bipolar 1 disorder (HCC) Take 2 tablets (500 mg total) by mouth nightly 60 tablet 2 07/20/19 25 Active Vyvanse 50 mg capsuleIndication s:Attention-Defic it Hyperactivity Disorder Take 1 capsule (50 mg total) by mouth every morning 30 capsule 08/23/19 25 Active busPIRone (BUSPAR) 5 mg tablet TAKE 1 TABLET BY MOUTH TWICE A DAY 180 tablet 1 09/10/[address] (DEPAKOTE) 250 mg EC tabletIndications :Bipolar 1 disorder (HCC) Take 2 tablets (500 mg total) by mouth nightly 60 tablet 2 12/20/19 25 Active FLUoxetine 10 mg tablet/capsuleInd ications:Depressi on associated with Bipolar Disorder Take 1 tablet/capsu le (10 mg total) by mouth nightly 30 tablet/caps ule 2 12/20/[address] (DEPAKOTE) 250 mg EC tabletIndications :Bipolar 1 disorder (HCC) Take 1 tablet (250 mg total) by mouth daily with breakfast 30 tablet 2 12/20/19 25 Active hydrOXYzine (ATARAX) 25 mg tabletIndications :Insomnia Take 1 tablet (25 mg total) by mouth nightly as needed (Sleep maintenance) 90 tablet 1 12/20/19 25 Active zolpidem CR (Ambien CR) 12.5 mg CR tabletIndications :Insomnia,Sleep induction Take 1 tablet (12.5 mg total) by mouth nightly as needed for sleep 30 tablet 2 12/20/19 25 Active lisdexamfetamine (Vyvanse) 50 mg capsuleIndication s:Attention-Defic it Hyperactivity Disorder Take 1 capsule (50 mg total) by mouth every morning 30 capsule 01/17/20 25 Active lisdexamfetamine (Vyvanse) 50 mg capsuleIndication s:Attention-Defic it Hyperactivity Disorder Take 1 capsule (50 mg total) by mouth every morning 30 capsule 02/14/20 25 Active lisdexamfetamine (Vyvanse) 50 mg capsuleIndication s:Attention-Defic it Hyperactivity Disorder Take 1 capsule (50 mg total) by mouth every morning 30 capsule 12/20/19 25 Active FLUoxetine (PROzac) 40 mg capsuleIndication s:Depression associated with Bipolar Disorder Take 1 capsule (40 mg total) by mouth daily 30 capsule 2 12/20/19 25 Active hydrOXYzine (ATARAX) 25 mg tabletIndications :Insomnia Take 1 tablet (25 mg total) by mouth nightly as needed (Sleep maintenance) 90 tablet 1 06/09/19 25 025 Discontinued FLUoxetine (PROzac) 40 mg capsuleIndication s:Depression associated with Bipolar Disorder Take 1 capsule (40 mg total) by mouth daily 30 capsule 2 08/17/19 25 025 Discontinued lisdexamfetamine (Vyvanse) 50 mg capsuleIndication s:Attention-Defic it Hyperactivity Disorder Take 1 capsule (50 mg total) by mouth every morning 30 capsule 08/17/19 25 025 Discontinued lisdexamfetamine (Vyvanse) 50 mg capsuleIndication s:Attention-Defic it Hyperactivity Disorder Take 1 capsule (50 mg total) by mouth every morning 30 capsule 10/12/19 25 025 Discontinued lisdexamfetamine (Vyvanse) 50 mg capsuleIndication s:Attention-Defic it Hyperactivity Disorder Take 1 capsule (50 mg total) by mouth every morning 30 capsule 09/14/19 25 025 Discontinued zolpidem CR (Ambien CR) 12.5 mg CR tabletIndications :Insomnia,Sleep induction Take 1 tablet (12.5 mg total) by mouth nightly as needed for sleep 30 tablet 2 08/17/[address] (DEPAKOTE) 250 mg EC tabletIndications :Bipolar 1 disorder (HCC) Take 1 tablet (250 mg total) by mouth daily with breakfast 30 tablet 2 08/17/19 25 025 Discontinued FLUoxetine 10 mg tablet/capsuleInd ications:Depressi on associated with Bipolar Disorder Take 1 tablet/capsu le (10 mg total) by mouth nightly 30 tablet/caps ule 2 08/17/[address] (DEPAKOTE) 250 mg EC tabletIndications :Bipolar 1 disorder (HCC) Take 2 tablets (500 mg total) by mouth nightly 60 tablet 2 08/17/19 025 Discontinued lisdexamfetamine (Vyvanse) 50 mg capsuleIndication s:Attention-Defic it Hyperactivity Disorder Take 1 capsule (50 mg total) by mouth every morning 30 capsule 12/06/19 025 Discontinued Active Problems Problem Noted Date Diagnosed Date Bipolar 1 disorder 09/29/2022 ADHD 09/29/2022 Generalized anxiety disorder 09/29/2022 Difficulty in swallowing 11/02/2012 Encounters Date Type Department Care Team Description 12/19/2024 2:00 PM CDT Office Visit [address] [phone] Padilla Pires MD Generalized anxiety disorder (Primary Dx); Bipolar 1 disorder (HCC); Attention deficit hyperactivity disorder (ADHD), combined type 12/05/[address] [phone] Padilla Pires MD Med Refill (Vyvanse ) 10/10/2024 4:00 PM CDT Telemedicine [address] [phone] Padilla Pires MD Attention deficit hyperactivity disorder (ADHD), combined type (Primary Dx); Bipolar 1 disorder (HCC); Generalized anxiety disorder from Last 3 Months Social History Tobacco Use Types Packs/Day Years Used Date Smoking Tobacco: Never Comments Unknown Sex and Gender Information Value Date Recorded Sex Assigned at Not on file Legal Sex Female 4:46 AM [employer] Gender Identity Female 12/01/2023 10:19 AM CDT Sexual Orientation Not on file Obstetrics History Last Filed Vital Signs Vital Sign Reading Time Taken Comments Blood Pressure 118/88 08/15/2013 11:26 AM CDT Pulse 81 05/05/2012 10:54 AM CDT Temperature 36.4 C (97.6 F) 05/05/2012 10:54 AM CDT Respiratory Rate - - Oxygen Saturation 99% 05/05/2012 10: 54 AM CDT Inhaled Oxygen Concentration - - Weight 106.1 kg (233 lb 15.9 oz) 2013 11:26 AM CDT Height 175.3 cm (5' 9) 08/15/2013 11:2 6 AM CDT Body Mass Index 34.56 08/15/2013 11:26 AM CDT Plan of Treatment Health Maintenance Due Date Last Done Comments Breast Cancer Screening-Mammogram 1955 Colon Cancer Screening-Colonoscopy 1955 Depression Screening 1955 Fall Risk Assessment 1955 Hepatitis C Screening 1955 Osteoporosis Screening-Bone Density Scan 1955 Hepatitis B Screening 06/02/1973 Well Visit 65+ 06/02/2020 Zoster Vaccine (2 of 2) 12/29/2020 11/03/2020 Pneumococcal vaccine 65+ (3 of 3 - PCV20 or PCV21) 02/22/2021 02/23/2016, 02/23/2016, 12/17/2014 Covid-19 Vaccine (4 - 2024-2 6 season) 2024 01/30/2021, 05/19/2020, 04/15/2020 Influenza Vaccine (#1) 2024 , 12/02/2022, 11/03/2020, Additional history exists DTaP/Tdap/Td Vaccine (2 - Td or Tdap) 01/03/2028 01/02/2018 Insurance IDPA IDPA [facility] MEDICARE [facility] Address: [address] [address] [place] [address] [facility] MEDICARE [id number] Care Teams Dinkey Operator Relationship Specialty Start Date End Date Ramon Shell DO [address] [place] [id number] PCP - General Family Medicine 06/04/23
--- OUTSIDE RECORDS SUMMARY | 2024-12-22 12:16 | XMS_ITS | Data Portability ---
Author Organization [place] - [facility] [employer], Main Office Address [address] [place] [address] Assessment Encounter Date Assessment Date Assessment LastModified by Organization Details LastModified Time 03/12/2023 03/12/2023 Impression: 1. Patient is 1 year out after right total knee arthroplasty is doing very well. Patient should be seen in 5 years for routine radiographic surveillance. 2. Patient has moderately severe bicompartmental osteoarthritis left knee. She is thinking about knee replacement surgery. She would like a cortisone shot today. I have recommended that she work hard on weight loss which will lower her risk of complications and make a recovery after knee replacement he is here. She can have a cortisone shot as often as every 3 months as long as they are helpful and necessary and when these do not help anymore she certainly consider knee replacement surgery. She can be seen in 3 months for another cortisone shot if desired. Risks of side effects of cortisone injection of the joint including risk of infection were discussed. After ChloraPrep prep, 20 mg of Kenalog and 4 cc of 0.5% ropivacaine were injected into the left knee without difficulty. 30 minutes were spent in total care this patient more than half the time spent in lygw-df-eixr care. [email or web address] Not available 03/30/2023 12:48:51 04/16/2023 04/16/2023 HPI:. Patient is here for evaluation of her right anterior knee pain. We saw her in early February of this year for a one year follow up of her right total knee arthroplasty. She was doing very well. Over the course of the last 4 to 5 weeks she has developed irritation, and pain predominantly in the patella/fem joint. She does not recall any overuse activities or injuries that started this. She has pain when she tries to sit down or when she gets up from a seated position. She has no pain with weight-bearing or walking on flat level ground. Physical exam: patient is walking very well today without limp. She has no effusion in the right knee. She has moderate tenderness with patella femoral grind. She has normal stability in the knee in both flexion and extension. Range of motion is from 0 to 135 . No swelling and I don't know extremity. No redness or warmth about the knee. Impression: patient has patellofemoral pain in the right knee. Typically this is from an overuse activity. She remembered she has been doing quite a bit of squatting recently around the house, and I think this probably contributed to the onset of her symptoms. I recommended that she start taking cgaa-aix-gzugnzu anti-inflammatory, naproxen twice a day, and avoid bending, squatting or stairs for the next two weeks to try to get this to quite now. If it does not, she will call the winds will see her back as needed. [email or web address] Not available 04/16/2023 11:04:36 Plan of Treatment Reminders Order Date Submit Date Provider Last Modified By Organization Details Last Modified Time Details Appointments None recorded. Lab None recorded. Referral None recorded. Procedures injection/a spiration joint/bursa (PROC) - in office procedure, administere d by provider 2023 024 [email or web address] In-Office Order, Internal Use Only DO Not Attach Compendium DO Not Attach Compendium, Do Not Delete/merge, [id number] 12:30:21 Surgeries None recorded. Imaging XR, knee 2023 024 [email or web address] [facility], [address] [place] [address], [address], [place], [address], 4 11:25:15 Medication Orders Kenalog 10 mg/mL suspension for injection 2023 024 [email or web address] [id number], [address] , [place], [address], 4 10:39:08 ropivacaine (PF) 5 mg/mL (0.5 %) injection solution 2023 024 [email or web address] [id number], [address], [place], [address], 4 10:39:20 Patient TargetsNo targets recorded. Patient InstructionsNo instructions recorded. Reason for Referral None Reported. Results Created Date Observation Date Name Description Value Unit Range Abnormal Flag Note LastModifiedBy Organization Detail LastModifiedTime 01/21/2001/13/2022 kannan renée ayon am No observ ation record ed. [id number] Not Available 04/23/2022 12:57:51 02/04/20 22 02/03/2022 XR, knee No observ ation record ed. [id number] [facility] [address], [place], [address], 04/23/2022 12:57:51 03/20/19 23 XR, knee No observ ation record ed. [id number] [facility] [address] [facility], [place], [address], 04/23/2022 12:57:51 03/12/19 24 XR, knee No observ ation record ed. [email or web address] s_gmg [facility] [address] [facility], [address], [place], [address], 03/26/2023 11:11:36 Result Notes None recorded. Problems Name Problem SNOMED Code Status Onset Date Resolution Date Notes Provider Name and Address Organization Details Recorded Time Knee joint effusion 646301040 Active Not Available [facility] 3 12:53:53 Osteoarthr itis 675421834 Active Not Available [facility] 3 12:53:53 Pain of bilateral knee joints 9101650957365 04 Active 2021 Not Available [facility] 3 12:53:53 History of right total knee replacemen t 8587209904397 102 Active 2023 Daria Rivera, YELENA null, [place] [employer] 4 12:01:49 Osteoarthr itis of left knee joint 4801746604876 09 Active 2023 Daria Rivera, YELENA null, [place] [facility] [place] [employer] 4 12:25:13 Problem Notes None recorded. Procedures Surgical History Date Name Laterality Status Provider Name and Address Organization Details Recorded Time Thyroid Surgery completed Not Available [facility] 04/23/2022 12:51:28 Gallbladder Surgery completed Not Available [facility] 04/23/2022 12:51:28 Hysterectomy completed Not Available [facility] 04/23/2022 12:51:28 Imaging Results None recorded. Procedure Notes None recorded. Medical Equipment None Reported. Medications Name Sig Start Date Stop Date Status Note LastModified by Organization Details LastModified Time celecoxib 200 mg capsule TAKE 1 CAPSULE BY MOUTH EVERY DAY AT 8AM 03/12 completed Not Available Not Available Not Available fluoxetine 40 mg capsule TAKE 1 CAPSULE BY MOUTH EVERY DAY IN THE MORNING active Not Available Not Available No t Available buspirone 5 mg tablet TAKE 1 TABLET BY MOUTH TWICE A DAY active Not Available Not Available No t Available silver sulfadiazin e 1 % topical cream APPLY TO BUTTOCKS AREA AT BEDTIME active Not Available Not Available No t Available nystatin 100,000 unit/mL oral suspension TAKE 5 ML BY MOUTH IN THE MORNING, 5 ML AT NOON, 5 ML IN THE EVENING AND 5 ML AT BEDTIME FOR 10 DAYS 02/19 completed Not Available Not Available Not Available prednisone 10 mg tablet TAKE 4 TABLETS BY MOUTH FOR 3 DAYS, 3 TABLETS FOR 2 DAYS, 2 TABLETS FOR 1 DAY AND 1 TABLET FOR 1 DAY 03/12 completed Not Available Not Available Not Available oxybutynin chloride ER 15 mg tablet,exte nded release 24 hr TAKE 1 TABLET BY MOUTH EVERY DAY active Not Available Not Available No t Available benztropine 0.5 mg tablet TAKE 1 TABLET BY MOUTH EVERY DAY.JOSHUA ERIC FOR CALL BACK FROM FOR SIG 02/19 completed Not Available Not Available Not Available naproxen 375 mg tablet TAKE 1 TABLET BY MOUTH TWICE A DAY NEEDED FOR PAIN/INFL AMMATION 04/16 completed Not Available Not Available Not Available erythromyci n 500 mg tablet TAKE 2 TABLETS BY MOUTH AT 1 PM, 2 PM, AND 11 PM DAY PRIOR TO SURGERY 11/08 completed Not Available Not Available Not Available divalproex 250 mg tablet,edson yed release TAKE 2 TABLETS BY MOUTH DAILY NIGHTLY 04/16 completed Not Available Not Available Not Available atorvastati n 10 mg tablet TAKE 1 TABLET BY MOUTH EVERY DAY active Not Available Not Available No t Available azithromyci n 250 mg tablet 12/15 completed Not Available Not Available Not Available ibuprofen 800 mg tablet TAKE 1 TABLET BY MOUTH THREE TIMES A DAY NEEDED FOR KNEE PAIN 12/15 completed Not Available Not Available Not Available metoprolol tartrate 100 mg tablet TAKE ONE TAB AT BEDTIME THE NIGHT BEFORE CT SCAN AND ONE TAB AT 8 AM THE MORNING OF THE CT SCAN active Not Available Not Available No t Available fluconazole 150 mg tablet TAKE 1 TABLET (150 MG TOTAL) BY MOUTH ONCE FOR 1 DOSE. 11/08 completed Not Available Not Available Not Available valacyclovi r 1 gram tablet TAKE 1 TABLET BY MOUTH THREE TIMES A DAY 03/12 completed Not Available Not Available Not Available cephalexin 250 mg capsule TAKE 1 CAPSULE BY MOUTH FOUR TIMES A DAY FOR 7 DAYS 11/08 completed Not Available Not Available Not Available hydrocodone 5 mg-acetamin ophen 325 mg tablet TAKE 1 TABLET BY MOUTH 4 TIMES A DAY NEEDED FOR PAIN 11/08 completed Not Available Not Available Not Available hydrocortis one 1 % topical ointment APPLY 3 TIMES A DAY TO AREA UNDER LEFT EYE active Not Available Not Available No t Available ondansetron HCl 4 mg tablet TAKE 1 TABLET AT 1 PM AND THE OTHER NEEDED DURING COLON PREP. 12/15 completed Not Available Not Available Not Available metronidazo le 500 mg tablet TAKE 1 TABLET BY MOUTH EVERY 8 HOURS 11/08 completed Not Available Not Available Not Available divalproex 500 mg tablet,edson yed release TAKE 1 TABLET BY MOUTH TWICE A DAY 02/19 completed Not Available Not Available Not Available ciprofloxac in 500 mg tablet TAKE 1 TABLET BY MOUTH EVERY 12 HOURS 11/08 completed Not Available Not Available Not Available sulfamethox azole 800 mg-trimetho prim 160 mg tablet TAKE 1 TABLET BY MOUTH TWICE A DAY FOR 10 DAYS 03/12 completed Not Available Not Available Not Available tramadol 50 mg tablet TAKE 1 TABLET BY MOUTH THREE TIMES A DAY NEEDED FOR NECK PAIN 06/06 completed Not Available Not Available Not Available triamcinolo ne acetonide 0.1 % topical cream APPLY TO AFFECTED AREA TWICE A DAY 03/12 completed Not Available Not Available Not Available pantoprazol e 20 mg tablet,edson yed release TAKE 1 TABLET BY MOUTH EVERY DAY 02/19 completed Not Available Not Available Not Available meloxicam 7.5 mg tablet TAKE 1 TABLET BY MOUTH ONCE DAILY 12/15 completed Not Available Not Available Not Available famotidine 20 mg tablet TAKE 1 TABLET BY MOUTH ONCE BEFORE BREAKFAST AND ONCE BEFORE SUPPER (REPLACIN G RANITIDIN E) 11/08 completed Not Available Not Available Not Available Valium 5 mg tablet Take 1 tablet 3 times a day by oral route. 11/08 completed Not Available Not Available Not Available Kenalog 10 mg/mL suspension for injection in office procedure , administe red by provider 04/16 completed [facility]: [phone] Not Available Not Available Not Available diazepam 2 mg tablet TAKE 1 TABLET BY MOUTH DAILY NEEDED FOR ANXIETY. active Not Available Not Available No t Available hydrocodone 7.5 mg-acetamin ophen 325 mg tablet 11/08 completed Not Available Not Available Not Available cephalexin 500 mg capsule TAKE 1 CAPSULE (500 MG TOTAL) BY MOUTH 4 (FOUR) TIMES DAILY FOR 10 DAYS. active Not Available Not Available No t Available erythromyci n 5 mg/gram (0.5 %) eye ointment PLACE INTO LEFT EYE EVERY 6 HOURS FOR 10 DAYS 03/12 completed Not Available Not Available Not Available ferrous sulfate 325 mg (65 mg iron) tablet TAKE 1 TABLET BY MOUTH EVERY DAY WITH BREAKFAST 02/19 completed Not Available Not Available Not Available tobramycin 0.3 % eye drops INSTILL 1 2 DROPS INTO THE RIGHT EYE 4 TIMES DAILY DIRECTED active Not Available Not Available No t Available ranitidine 150 mg tablet TAKE 2 TABLETS BY MOUTH TWICE A DAY 06/06 completed Not Available Not Available Not Available divalproex ER 500 mg tablet,exte nded release 24 hr 03/20 completed Not Available Not Available Not Available fluoxetine 10 mg capsule TAKE 1 CAPSULE BY MOUTH EVERY DAY AT BEDTIME active Not Available Not Available No t Available nitroglycer in 0.4 mg sublingual tablet LET 1 TABLET DISSOLVE UNDER THE TONGUE NEEDED FOR CHEST PAIN 06/22 completed Not Available Not Available Not Available oxybutynin chloride ER 5 mg tablet,exte nded release 24 hr TAKE 2 TABLETS BY MOUTH EVERY DAY 02/19 completed Not Available Not Available Not Available omeprazole 20 mg capsule,del ayed release TAKE 1 CAPSULE BY MOUTH EVERY DAY active Not Available Not Available No t Available montelukast 10 mg tablet TAKE 1 TABLET BY MOUTH EVERYDAY AT BEDTIME active Not Available Not Available No t Available mupirocin 2 % topical ointment APPLY TO AFFECTED AREA 3 TIMES A DAY FOR 10 DAYS 03/12 completed Not Available Not Available Not Available nystatin 100,000 unit/gram topical powder APPLY TOPICALLY TWICE A DAY 03/12 completed Not Available Not Available Not Available lorazepam 1 mg tablet TAKE 1 TABLET BY MOUTH EVERYDAY AT BEDTIME 07/20 completed Not Available Not Available Not Available zolpidem 10 mg tablet TAKE 1 TABLET BY MOUTH EVERY DAY AT BEDTIME NEEDED FOR 30 DAYS 11/08 completed Not Available Not Available Not Available methylpredn isolone 4 mg tablets in a dose pack 11/08 completed Not Available Not Available Not Available neomycin 500 mg tablet TAKE 2 TABLETS BY MOUTH AT 1 PM, 2 PM, AND 11 PM DAY PRIO RTO SURGERY 11/08 completed Not Available Not Available Not Available albuterol sulfate HFA 90 mcg/actuati on aerosol inhaler INHALE 1-2 PUFFS BY MOUTH 4 TIMES A DAY NEEDED active Not Available Not Available No t Available fluoxetine 20 mg capsule TAKE 3 CAPSULES BY MOUTH EVERY DAY IN THE MORNING 06/06 completed Not Available Not Available Not Available clotrimazol e 1 % topical cream APPLY TOPICALLY 2 (TWO) TIMES DAILY FOR 28 DAYS. 11/08 completed Not Available Not Available Not Available divalproex 125 mg capsule,del ayed release sprinkle 11/08 completed Not Available Not Available Not Available colestipol 1 gram tablet TAKE 1 TABLET BY MOUTH DAILY active Not Available Not Available No t Available doxycycline hyclate 100 mg tablet TAKE 1 TABLET BY MOUTH EVERY 12 HOURS 03/12 completed Not Available Not Available Not Available dicyclomine 10 mg capsule TAKE 1 CAPSULE BY MOUTH 4 TIMES A DAY BEFORE MEALS AND AT BEDTIME 03/12 completed Not Available Not Available Not Available Microlet Lancet USE TO TEST BLOOD SUGAR TWICE A DAY 12/15 completed Not Available Not Available Not Available amoxicillin 875 mg-potassiu m clavulanate 125 mg tablet TAKE 1 TABLET BY MOUTH TWICE A DAY FOR 10 DAYS 03/12 completed Not Available Not Available Not Available oxycodone 5 mg tablet TAKE 1 TABLET BY MOUTH EVERY 4 HOURS 02/19 completed Not Available Not Available Not Available hydroxyzine pamoate 25 mg capsule TAKE 1 CAPSULE BY MOUTH THREE TIMES A DAY NEEDED FOR 30 DAYS 11/08 completed Not Available Not Available Not Available aripiprazol e 10 mg tablet TAKE 1/2 (ONE HALF) A TABLET BY MOUTH ONCE EVERY DAY IN THE MORNING 02/19 completed Not Available Not Available Not Available divalproex ER 250 mg tablet,exte nded release 24 hr TAKE 1 TABLET BY MOUTH IN THE MORNING AND 2 TABLETS AT BEDTIME active Not Available Not Available No t Available Restasis 0.05 % eye drops in a dropperette INSTILL 1 DROP INTO EACH EYE TWICE A DAY 12/15 completed Not Available Not Available Not Available aripiprazol e 5 mg tablet TAKE 1/2 TABLET BY MOUTH EVERY DAY AT BEDTIME 02/19 completed Not Available Not Available Not Available nitrofurant oin monohydrate /macrocryst als 100 mg capsule TAKE 1 CAPSULE BY MOUTH TWICE A DAY FOR 7 DAYS 02/19 completed Not Available Not Available Not Available zolpidem ER 12.5 mg tablet,exte nded release,mul tiphase TAKE 1 TABLET BY MOUTH NIGHTLY NEEDED FOR SLEEP active Not Available Not Available No t Available lidocaine (PF) 10 mg/mL (1 %) injection solution In office injection administe red by the provider 06/06 completed [facility]: [phone] Not Available Not Available Not Available Advair HFA 230 mcg-21 mcg/actuati on aerosol inhaler INHALE 2 PUFFS INTO THE LUNGS TWICE A DAY 04/16 completed Not Available Not Available Not Available aripiprazol e 2 mg tablet TAKE 1 TABLET BY MOUTH EVERY DAY IN THE MORNING 06/06 completed Not Available Not Available Not Available quetiapine 50 mg tablet TAKE 1/2 TABLET BY MOUTH EVERYDAY AT BEDTIME 02/19 completed Not Available Not Available Not Available olopatadine 0.2 % eye drops INSTILL 1 DROP INTO BOTH EYES EVERY DAY DIRECTED 02/19 completed Not Available Not Available Not Available Vyvanse 50 mg capsule TAKE 1 CAPSULE BY MOUTH EVERY MORNING active Not Available Not Available No t Available Vyvanse 70 mg capsule TAKE 1 CAPSULE BY MOUTH EVERY DAY. active Not Available Not Available No t Available Vyvanse 60 mg capsule TAKE 1 CAPSULE BY MOUTH EVERY DAY IN THE MORNING 06/06 completed Not Available Not Available Not Available Vyvanse 40 mg capsule TAKE ONE CAPSULE BY MOUTH EVERY DAY 12/01 completed Not Available Not Available Not Available Xifaxan 550 mg tablet TAKE 1 TABLET BY MOUTH THREE TIMES A DAY X2 WEEKS 03/12 completed Not Available Not Available Not Available sodium,pota ssium,mag sulfates 17.5 gram-3.13 gram-1.6 gram oral soln TAKE DIRECTED 03/12 completed Not Available Not Available Not Available ropivacaine (PF) 5 mg/mL (0.5 %) injection solution in office procedure , administe red by provider 04/16 completed [facility] [phone] Not Available Not Available Not Available [facility] spacer USE DIRECTED active Not Available Not Available No t Available Contour Next Test Strips USE TO TEST BLOOD SUGAR ONCE A DAY active Not Available Not Available No t Available Contour Next EZ Meter USE TO TEST TWICE A DAY 12/01 completed Not Available Not Available Not Available Eliquis 2.5 mg tablet TAKE 1 TABLET BY MOUTH EVERY 12 HOURS 03/20 completed Not Available Not Available Not Available Proctosol HC 2.5 % topical cream perineal applicator USE RECTALLY 3 TIMES A DAY 03/20 completed Not Available Not Available Not Available Afluria Qd 2018- (36 mos up)(PF)60 mcg (15 mcg x4)/0.5 mL IM syringe TO BE ADMINISTE RED BY PHARMACIS T FOR IMMUNIZAT ION 06/06 completed Not Available Not Available Not Available Fluzone Quad (PF) 60 mcg (15 mcg x 4)/0.5 mL IM syringe PHARMACY ADMINISTE RED 06/22 completed Not Available Not Available Not Available Vitals Date Recorded Body height Provider Name an d Address Organization Details Last Updated DateTime 03/03/2022 167.64 cm Not Available [facility] 12:53:12 Date Recorded Body height Body mass index (BMI) Body weight Provider Name and Address Organization Details Last Updated DateTime 03/12/2023 167.64 cm 37.4 kg/m2 357577.43 g VIOLET William [place] [employer] [facility] [employer] [facility] 03/12/2023 11:27:29 Date Recorded Body height Provider Name an d Address Organization Details Last Updated DateTime 03/20/2022 167.64 cm Not Available [facility] 12:53:12 Date Recorded Body height Provider Name an d Address Organization Details Last Updated DateTime 04/16/2023 167.64 cm Nazia Bender Lena [facility] [employer] [facility] 04/16/2023 10:38:46 Date Recorded Body height Provider Name an d Address Organization Details Last Updated DateTime 02/19/2022 167.64 cm Not Available [facility] 12:53:12 Social History Question Answer Notes LastModified by [employer] Details LastModified Time Tobacco Smoking Status Never Smoker Not Available [facility] 04/23/2022 12:51:27 What Was The Date Of Your Most Recent Tobacco Screening? 06/22/2020 [id number] Information not available 04/23/2022 Sex: Female Functional Status Question Answer Note LastModified by [employer] Details LastModified Time What is your level of alcohol consumption? None [id number] Information not available 04/23/2022 Mental Status None recorded. Family History Relationship Description Onset Age of this Age Resolved Age Notes LastModified by Organization Details LastModified Time Father Heart disease [id number] Not available 04/23/2022 12:51:29 Father Family history of malignant neoplasm [id number] Not available 04/23/2022 12:51:29 Father Diabetes mellitus [id number] Not available 04/23/2022 12:51:30 Sister Heart disease [id number] Not available 04/23/2022 12:51:30 Sister Diabetes mellitus [id number] Not available 04/23/2022 12:51:30 Medical History Condition Response SKIN PROBLEMS Y ARTHRITIS Y Gynecological HistoryNo gynecological history recorded. Obstetrics History GPAL:G 0 P 0 0 0 0 Past Encounters Encounter ID Performer Location Encounter Start Date Encounter Closed Date Diagnosis/Indication Diagnosis SNOMED-CT Code Diagnosis ICD10 Code Diagnosis IMO Codes Diagnosis Note [id number] Rhoda Rausch MD [facility] [address] [place], [place] [address] [address] 05/24/2020 00:00:00 05/24/2020 15:27:30 [id number] Rhoda Rausch MD [facility] [address] [place] [address] 07/03/2020 00:00:00 07/03/2020 15:38:21 [id number] Ysabel Borrego NP [address] [address] 08/01/2020 00:00:00 08/01/2020 20:11:11 [id number] Ysabel Borrego NP [facility] [address] [place] [address] 1 08/30/2020 00:00:00 08/30/2020 18:05:45 [id number] Ysabel Borrego NP [facility] [address] [place] [address] 1 10/02/2020 00:00:00 10/02/2020 17:28:00 [id number] Ysabel Borrego NP [facility] [address] [place] [address] 1 11/27/2020 00:00:00 11/27/2020 15:41:12 [id number] Borrego NP [facility] [address] [place] [address] 1 12/20/2020 00:00:00 12/20/2020 17:33:20 [id number] Borrego NP [facility] [address] [place] [address] 01/23/2021 00:00:00 01/23/2021 16:29:26 [id number] Ysabel Ingridramon, [employer] [facility] [address] [address] 04/03/2021 00:00:00 04/03/2021 16:39:59 [id number] Ysabel Borrego, [employer] [facility] [address] [address] 05/01/2021 00:00:00 05/01/2021 16:18:39 [id number] MD JAROD [facility] [address] [place] [address] 06/06/2020 00:00:00 06/06/2020 15:58:33 [id number] MD JAROD [facility] [place] [address] [place] [address] 06/22/2020 00:00:00 06/23/2020 16:28:12 [id number] MD SONJA BrennanS[facility] [place] [address] [place] [address] 07/20/2020 00:00:00 07/23/2020 17:04:07 [id number] Manjinder Suarez MD S[facility] [place] [address] [place] [address] 11/08/2021 00:00:00 11/17/2021 13:55:46 [id number] MD JAROD [facility] [place] [address] [place] [address] 02/19/2022 00:00:00 02/19/2022 12:00:53 [id number] Manjinder Suarez MD [facility] [place] [address] [place] [address] 03/03/2022 00:00:00 03/03/2022 14:21:16 [id number] Manjinder Suarez MD [facility] [address] [address] 03/20/2022 00:00:00 03/20/2022 12:42:24 [id number] Manjinder uSarez MD [facility]_[address] [address] 03/12/2023 10:57:09 03/26/2023 11:25:15 History of right total knee replacement 8417751236 707827 Z96.651 Osteoarthr itis of left knee joint 6334684076 12980 M17.12 [id number] MD JAROD Brennan_[address] [address] 04/16/2023 10:31:31 04/16/2023 11:16:13 History of right total knee replacement 9170683986 339987 Z96.651 Health Concerns Section Related Observation LastModified by Organization Detai ls LastModified Time None Recorded Concern Status LastModified by Organization Details LastModified Time None Recorded Advance Directives Directive None Recorded Payers Insurance Date Sequence Insurance Name Policy Number Policy Cifuentes Covered Member ID Cifuentes Member ID Guarantor Name 07/22/2023 3 [place] PRIOR TO 2024 (MEDICAID REPLACEMENT - [place]MO) Melissa Roth [place] [id number] Melissa Roth [place] 06/29/2024 1 [employer] (MEDICARE REPLACEMENT HMO) [id number] Piero Roth Juan [id number] Melissa Roth Juan 06/29/2024 2 [place]PART[place] Melissa Roth [place] [id number] Melissa Roth [place] 06/29/2024 1 [employer] (MEDICARE REPLACEMENT/A DVANTAGE - PPO) [id number] Melissa Roth [place] [id number] Melissa Roth [place] 06/29/2024 2 [place] WHEN MEDICARE OR MEDICARE REPLACEMENT PRIMARY) Melissa Roth [place] [id number] Melissa Roth [place] Notes Date Note Type Note Provider Name and Address Organization Details Recorded Time 03/12/2023 text/html patient returns follow-up of her right knee replacement that was performed 1 year ago and for evaluation of her left knee. She complains that her left knee locks up and is painful when she gets up from a chair. She has to climb stairs 1 at a time because of her left knee. She feels her right knee is doing very well And is stronger than her left knee now. Her past history is significant for colectomy the past for bowel obstruction which was associated with colostomy which was reversed 3 months later. Manjinder Suarez MD [address] [place] [address], [place], [address], [facility] [employer] 03/30/2023 12:48:55 OBGyn Episode No OBEpisode recorded.
--- OUTSIDE RECORDS SUMMARY | 2024-12-22 12:16 | XMS_ITS | Patient Health Record ---
Author Organization [facility] [employer] Address [facility] [facility] [address] [place] [address] Care Team Providers Care Manager Consumer Insights Name Role Phone Zafar Scott Unavailable [phone] Reason For Referral No Information Medications Medication SIG (Take, Route, Frequency, Duration) Notes Start Date End Date Status LORazepam 1 MG Tablet Oral Active Depakote ER 250 MG Tablet Extended Release 24 Hour Oral Act julieta Plan Of Treatment No Information
== END 2024-12-22 11:04 | disposition home or self-care (01) ==
LOC: ANHAUDIO 11:05
PROVIDERS: PCP Student in an Organized Health Care Education/Training Program; Visit Provider Student in an Organized Health Care Education/Training Program
DX: Z01.10 Encounter for examination of ears and hearing without abnormal findings (principal)
CPT/HCPCS: 92557; 92567